=== PATIENT | male | born 1970 | race Caucasian/White ===

== ENCOUNTER 2020-05-19 14:51 | Outpatient (REF) | payer OTHER, SELFPAY ==
--- NOTE | 2020-05-19 15:09 | XR_ITS ---
EXAMINATION: XR ANKLE, RIGHT XR FOOT, LEFT XR KNEE, LEFT CLINICAL INFORMATION: Pain of the right ankle. Pain in toes of left foot. Pain of left knee COMPARISON: Radiographs of left toes and left foot from 10/25/2017 and 02/18/2019. Radiographs of left knee from 05/07/2014. TECHNIQUE: Right ankle, 3 views Left foot, 3 views Left knee, 4 views FINDINGS: Left knee: Bones have normal alignment and joint spaces are maintained. No acute fracture, subluxation or joint effusion. Small marginal osteophytes of the patella. There is an old subchondral cyst of the lateral patellar facet. No intra-articular osteochondral body. Right ankle: The talar dome is well-positioned within the intact ankle mortise. Ankle joint space and syndesmotic space are normal. No fracture or subluxation. Minimal osseous spurring at the tip of the fibula. There is a prominent Stieda process of the posterior talus. Moderate-sized enthesophyte is noted at the Achilles tendon insertion. Kager's fat pad is normal. Left foot: No fracture or malalignment. No erosion or periostitis. There is a prominent Stieda process of the posterior talus. Small enthesophyte is noted at the Achilles tendon insertion on the posterior calcaneus. At the great toe MTP joint, there is narrowing of joint space and osteophyte formation. Chronic osteoarthritis also observed at the great toe interphalangeal joint (as manifest by joint space narrowing and osteophyte formation). The joint degeneration is unchanged in appearance compared to 02/19/2019. XR/XR ankle RT min 3V IMPRESSION: * Mild osteoarthritis of the patellofemoral joint of the left knee is unchanged in appearance compared 05/07/2014. * [id number]-lr-[id number] osteoarthritis of the metatarsophalangeal and interphalangeal joints of the great toe. The arthritis has a stable appearance compared to 02/19/2019. No acute fracture or malalignment. * Bones have normal alignment at the right ankle. No specific source of pain is detected at the right ankle.
== END 2020-05-19 14:52 | disposition home or self-care (01) ==
LOC: HO.XRAY 14:51
PROVIDERS: PCP Internal Medicine; Visit Provider Internal Medicine
DX: M25.571 Pain in right ankle and joints of right foot (principal); M25.562 Pain in left knee; M79.675 Pain in left toe(s)
CPT/HCPCS: 73564; 73610; 73630

== ENCOUNTER 2021-03-10 10:12 | Emergency (ER) | payer SELFPAY ==
[2021-03-10 10:17] VITALS: BP 148/89; PULSE 102; RESP 18; TEMP 36.6; O2SAT 98; BMI 29.2
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
[2021-03-10] MEDS: Lidocaine HCl 2 % MPF 5 ML VIAL INFILTRATI (11:38)
== END 2021-03-10 11:48 | disposition home or self-care (01) ==
PROVIDERS: Emergency Provider Emergency Medicine; PCP Internal Medicine
DX: L02.811 Cutaneous abscess of head [any part, except face] (principal); Z79.899 Other long term (current) drug therapy
CPT/HCPCS: 10060; 99283; 99284

== ENCOUNTER 2022-03-16 11:48 | Outpatient (REF) | payer MEDICAID, SELFPAY ==
--- NOTE | ~2022-03-16 | XR_ITS ---
EXAMINATION: XR FINGER, LEFT CLINICAL INFORMATION: Cellulitis left index finger. COMPARISON: Radiographs left hand 03/10/2015 TECHNIQUE: AP view left hand and 2 views of the index finger are obtained for 3 views. FINDINGS: There is dorsal soft tissue swelling index finger just proximal to the nail bed. Overlying dressing is present. There is no gas tracking in the soft tissues. The underlying bone shows no periostitis or destructive process. There is no fracture or dislocation. Normal bony mineralization. Again, there is some undertubulation of the distal shaft second metacarpal similar to remote radiographs 2014. XR/XR finger LT min 2V IMPRESSION: -No bony destructive process or periostitis. -No gas tracking in soft tissue planes.
== END 2022-03-16 11:49 | disposition home or self-care (01) ==
LOC: HO.HMGCX 11:48
PROVIDERS: Visit Provider Emergency Medicine
DX: L03.012 Cellulitis of left finger (principal)
CPT/HCPCS: 73140

== ENCOUNTER 2022-10-08 11:10 | Outpatient (REF) | payer OTHER, SELFPAY ==
--- NOTE | ~2022-10-08 | XR_ITS ---
EXAMINATION: XR LUMBOSACRAL SPINE CLINICAL INFORMATION: Lower spine pain. COMPARISON: Radiographs dated 10/19/2009. TECHNIQUE: AP and lateral views of the lumbar spine and lateral view of the lumbosacral junction. FINDINGS: The vertebral bodies and posterior elements are normal. There is a transitional appearance of the lumbar spine, with 6 lumbar type vertebra not articulating with a rib. The disc spaces are preserved, and the vertebral alignment is normal. There is mild anterior spondylosis at L1-L2. The paraspinal soft tissues are normal. There are abdominal and pelvic surgical clips. XR/XR lumbar spine 2-3V IMPRESSION: 1. There is a transitional appearance of the lumbar spine. 2. The lumbar disc spaces are well-maintained. 3. There is mild anterior spondylosis at L1-L2.
== END 2022-10-08 11:11 | disposition home or self-care (01) ==
LOC: HO.XRAY 11:10
PROVIDERS: PCP Internal Medicine; Visit Provider General Practice
DX: M54.50 Low back pain, unspecified (principal)
CPT/HCPCS: 72100

== ENCOUNTER 2022-12-31 10:10 | Outpatient (REF) | payer OTHER, SELFPAY ==
[2022-12-31 14:12] LABS: MANUAL DIFF FLAG NO
[2022-12-31 14:27] LABS: Basophils Absolute Auto 0.1 X10*3/uL (0.0-0.2); Basophils Percent Auto 0.6 % (0-2); Eosinophils Absolute Auto 0.2 X10*3/uL (0.0-0.4); Hematocrit 43.9 % (42.0-52.0); Hemoglobin 14.7 g/dl (14.0-18.0); Imm Gran Abs Auto 0.05 X10*3/uL (0.00-0.03); Imm Gran Pct Auto 0.6 % (0.0-0.4); Lymphocytes Absolute Auto 2.3 X10*3/uL (1.2-4.9); Lymphocytes Percent Auto 28.1 % (20-40); Mean Corpuscular HGB Conc 33.5 g/dl (31.0-36.0); Mean Corpuscular Hemoglobin 27.6 pg (27.0-33.0); Mean Corpuscular Volume 82.5 fL (80.0-98.0); Mean Platelet Volume 12.2 fL (9.4-12.4); Monocytes Absolute Auto 0.6 X10*3/uL (0.1-1.2); Monocytes Percent Auto 7.7 % (2-11); Neutrophils Absolute Auto 4.9 x10*3/uL (2.0-8.3); Platelet Count 251 X10*3/uL (160-400); Red Blood Count 5.32 X10*6/uL (4.60-5.80); Red Cell Distribution Width 12.8 % (11.0-16.0); White Blood Count 8.1 X10*3/uL (4.8-10.8)
[2022-12-31 14:52] LABS: Creatinine Urine 198.54 mg/dL; Microalbum/Creatinine Ratio Ur 7.5 ug/mg cr
[2022-12-31 15:07] LABS: Alanine Aminotransferase 41 U/L (0-40); Albumin Level 4.3 g/dL (3.5-5.0); Alkaline Phosphatase 52 U/L (39-117); Anion Gap 14 (12-20); Aspartate Amino Transferase 27 U/L (5-37); Bilirubin Total 1.9 mg/dL (0.0-1.0); Blood Urea Nitrogen 22 mg/dL (9-16); Calcium 9.3 mg/dL (8.4-10.2); Carbon Dioxide 31 mmol/L (22-29); Chloride 101 mmol/L (96-108); Estimated Glomerular Filt Rate > 60; Glucose Random 202 mg/dL (60-115); Magnesium 1.6 mg/dL (1.6-2.6); Potassium 3.6 mmol/L (3.3-5.1); Sodium 142 mmol/L (135-145); Total Protein 7.5 g/dL (6.5-8.0)
[2022-12-31 15:12] LABS: TSH reflex Free T4 2.57 uIU/mL (0.32-4.0); Vitamin D 25-OH Total 36.6 ng/mL (>30)
== END 2022-12-31 10:11 | disposition home or self-care (01) ==
LOC: CF 10:10
PROVIDERS: Visit Provider Internal Medicine
DX: R53.83 Other fatigue (principal); E11.9 Type 2 diabetes mellitus without complications
CPT/HCPCS: 36415; 80053; 82043; 82306; 83735; 84443; 85025

== ENCOUNTER 2023-07-22 14:57 | Outpatient (REF) | payer MEDICAID, SELFPAY ==
--- NOTE | ~2023-07-22 | XR_ITS ---
EXAMINATION: XR CHEST CLINICAL INFORMATION: Recurrent cough and dyspnea on exertion. History of asthma. COMPARISON: 11/15/2015. TECHNIQUE: PA and lateral views of the chest. FINDINGS: No significant abnormality is noted involving the heart, lungs, mediastinum, bony thorax or soft tissues. Status post cholecystectomy. XR/XR chest 2V IMPRESSION: Normal chest PA and lateral.
== END 2023-07-22 14:58 | disposition home or self-care (01) ==
LOC: HO.HHCX 14:57
PROVIDERS: Visit Provider Internal Medicine Geriatric Medicine
DX: R05.9 Cough, unspecified (principal); Z87.09 Personal history of other diseases of the respiratory system
CPT/HCPCS: 71046

== ENCOUNTER 2023-09-09 11:25 | Outpatient (REF) | payer MEDICAID, SELFPAY ==
--- NOTE | ~2023-09-09 | XR_ITS ---
EXAMINATION: XR KNEE, LEFT CLINICAL INFORMATION: Reason for Exam acute on chronic knee pain COMPARISON: Knee radiographs 04/29/2014 TECHNIQUE: 4 views of the knee FINDINGS: No acute fracture or dislocation. Joint spaces are maintained. No joint effusion. Soft tissues are unremarkable. XR/XR knee LT 4V IMPRESSION: * No acute osseous abnormality.
== END 2023-09-09 11:26 | disposition home or self-care (01) ==
LOC: HO.XRAY 11:25
PROVIDERS: PCP Internal Medicine; Visit Provider Internal Medicine
DX: M25.562 Pain in left knee (principal); G89.29 Other chronic pain
CPT/HCPCS: 73564

== ENCOUNTER 2023-10-22 09:44 | Outpatient (AMB) | payer OTHER, SELFPAY ==
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
== END 2023-10-22 10:24 | disposition home or self-care (01) ==
PROVIDERS: PCP Internal Medicine; Referring Provider Internal Medicine; Visit Provider Orthopaedic Surgery
DX: M25.562 Pain in left knee (principal)
CPT/HCPCS: 99202

== ENCOUNTER → 2023-10-22 09:44 | Outpatient (BNVA) | payer OTHER, SELFPAY | PROVIDERS: PCP Internal Medicine; Visit Provider Orthopaedic Surgery | DX: M25.562 Pain in left knee (principal) | CPT/HCPCS: 99202 ==

== ENCOUNTER 2024-02-11 15:22 | Emergency (ER) | payer OTHER, SELFPAY ==
--- NOTE | ~2024-02-11 | CT_ITS ---
EXAMINATION: CT HEAD WITHOUT CONTRAST CLINICAL INFORMATION: Left-sided headache COMPARISON: CT head November 26, 2014 TECHNIQUE: Contiguous axial imaging was performed from the skull base to vertex without intravenous administration of contrast. Coronal and sagittal reformatted images are performed at the CT scanner. This CT examination was performed using dose optimization techniques as appropriate, variously including the following: *Automated exposure control *Adjustment of mA and/or kV according to patient size (this includes techniques or standardized protocols for targeted exams where dose is matched to indication/reason for exam; i.e. extremities or head) *Use of iterative reconstruction technique DLP: 602 mGy-cm. FINDINGS: There is no evidence of acute intracranial hemorrhage or territorial infarction. No abnormal mass-effect or midline shift is seen. Jarvis to white matter differentiation is well preserved. No extra-axial fluid collections are identified. The ventricles are normal in size. There is no abnormal attenuation within the brain parenchyma. There is no osseous abnormality. Left maxillary sinus is nearly entirely opacified. Air-fluid level present in the left maxillary sinus. The mastoid air cells and middle ear cavities are normally aerated. CT/CT head/brain wo IV con IMPRESSION: No acute intracranial pathology. Electronically signed by: Chao Chase MD 02/11/2024 04:57 PM EDT RP
[2024-02-11 15:27] VITALS: BP 153/96; PULSE 110; RESP 19; TEMP 36.6; O2SAT 98; BMI 28.2
--- NOTE | 2024-02-11 15:27 | ED.GENADULT ---
HPI - General Adult General Chief complaint: Headache Stated complaint: Headache Time Seen by Provider: 02/11/24 16:33 Source: patient History of Present Illness ED Provider: Kim Avitia PA-C HPI narrative: 53-year-old male with history of diabetes, hypertension and hyperlipidemia presents with cough and cold symptoms times 3 days. Patient states he has had a frontal headache, with yellow mucus draining from his nose. Associated postnasal drip and dry cough. Denies fevers. Patient denies neck pain, dizziness, nausea, vomiting. Related Data Home Medications ?Medication ?Instructions ?Recorded ?Confirmed albuterol sulfate 90 mcg/actuation inhalation 10/22/23 10/22/23 aerosol inhaler atenolol 25 mg tablet 25 mg PO QAM 10/22/23 10/22/23 baclofen 10 mg tablet 10 mg PO BID 10/22/23 10/22/23 beclomethasone dipropionate 40 inhalation 10/22/23 10/22/23 mcg/actuation HFA breath activated aerosol (Qvar RediHaler) blood sugar diagnostic (True #10 ea 10/22/23 10/22/23 Metrix Glucose Test Strip) chlorthalidone 25 mg tablet 25 mg PO DAILY 10/22/23 10/22/23 glipizide 10 mg tablet 10 mg PO BID 10/22/23 10/22/23 loperamide 2 mg capsule mg PO 10/22/23 10/22/23 meloxicam 15 mg tablet 15 mg PO DAILY 10/22/23 10/22/23 metformin 500 mg tablet 1,000 mg PO BID 10/22/23 10/22/23 simvastatin 40 mg tablet 40 mg PO BEDTIME 10/22/23 10/22/23 venlafaxine 37.5 mg 37.5 mg PO DAILY 10/22/23 10/22/23 capsule,extended release 24 hr Previous Rx's ?Medication ?Instructions ?Recorded cephalexin 500 mg capsule 500 mg PO Q6H 5 days #20 caps 03/10/21 Allergies Allergy/AdvReac Type Severity Reaction Status Date / Time allopurinol [ALLOPURINOL] Allergy Unknown ANAPHYLAXIS, Verified 02/11/24 15:29 Throat Swelling, throat swelling lisinopril [LISINOPRIL] Allergy Unknown COUGH Verified 02/11/24 15:29 losartan Allergy Unknown diarrhea Verified 02/11/24 15:29 sulfamethoxazole Allergy Unknown Verified 02/11/24 15:29 [From Bactrim] trimethoprim [From Bactrim] Allergy Unknown Verified 02/11/24 15:29 From VICODIN Allergy Unknown ANAPHYLAXIS Uncoded 02/11/24 15:29 HYDROCODONE Allergy Unknown Shortness Uncoded 02/11/24 15:29 of Breath Hydrocodone-Acetaminophen Allergy Unknown shortness Uncoded 02/11/24 15:29 of breath Review of Systems Review of Systems: Yes all other systems are reviewed and are negative Constitutional: Constitutional: Denies fever(s) ENT: Reports nasal discharge, Reports post nasal drip and Denies sore throat Cardiovascular: Cardiovascular: Denies chest pain and Denies dyspnea Respiratory: Respiratory: Denies chest congestion, Reports cough and Denies dyspnea Gastrointestinal: Gastrointestinal: Denies vomiting PMF Past Medical History Attestation statement: The following information was validated with the patient. 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 Physical Exam ED Vital Signs: Vital Signs - 24 hr 02/11/24 15:27 02/11/24 16:38 Temperature 98 F 98.5 F Pulse Rate 110 H 104 H Respiratory Rate 19 14 Blood Pressure 153/96 H 125/88 Pulse Oximetry 98 94 Oxygen Delivery Method Room Air Room Air BMI result Body Mass Index 28.2 Const Other: Alert, appears older than stated age, sounds congested when he speaks Orientation/consciousness: patient oriented x3 Neck Other: Soft, supple, full range of motion, no meningeal signs Resp Other: Nonlabored respirations Cardio Other: Normal peripheral perfusion Skin Other: Warm dry no rash Neuro General: patient oriented x3, no focal motor deficits and CN's II-XI intact bilaterally Extrem General: Yes full ROM Psych Other: Calm cooperative Course Course Course Narrative: RME, this is a rapid medical exam performed by Chung Webber please refer to primary provider for complete H&P- 53 year old male presents for evaluation of a left sided headache for the last 3 days. Also complains of drainage from the nose. Plan for CT brain, labs, viral swabs. Reports his mother of brain cancer last year Medical Decision Making Medical Decision Making MDM Narrative: 53-year-old male with history of diabetes, hypertension and hyperlipidemia presents with cough and cold symptoms times 3 days. Patient states he has had a frontal headache, with yellow mucus draining from his nose. Associated postnasal drip and dry cough. Denies fevers. Patient denies neck pain, dizziness, nausea, vomiting. Problem: Diabetes History: Per patient I have considered the following differential diagnoses: Sinus headache, sinusitis, viral syndrome, meningitis, intracranial hemorrhage Plan: The patient is assessment was started from [facility], screening labs and a CT of the head was obtained. Thus far his assessment is unremarkable. His sugars are elevated, however he is not in DKA, there is no gap. We will send with home care instructions for his viral syndrome and sinus related headache. He does have evidence of sinusitis on CT, however he has not had symptoms long enough to have developed a secondary bacterial infection, antibiotics are currently not indicated. I have independently reviewed the following tests: Labs: Slight leukocytosis, not anemic, no electrolyte abnormality, no gap, sugars over 300, viral panel negative, he was screened for COVID and influenza CT brain:OMPARISON: CT head November 26, 2014 TECHNIQUE: Contiguous axial imaging was performed from the skull base to vertex without intravenous administration of contrast. Coronal and sagittal reformatted images are performed at the CT scanner. This CT examination was performed using dose optimization techniques as appropriate, variously including the following: *Automated exposure control *Adjustment of mA and/or kV according to patient size (this includes techniques or standardized protocols for targeted exams where dose is matched to indication/reason for exam; i.e. extremities or head) *Use of iterative reconstruction technique DLP: 602 mGy-cm. FINDINGS: There is no evidence of acute intracranial hemorrhage or territorial infarction. No abnormal mass-effect or midline shift is seen. Jarvis to white matter differentiation is well preserved. No extra-axial fluid collections are identified. The ventricles are normal in size. There is no abnormal attenuation within the brain parenchyma. There is no osseous abnormality. Left maxillary sinus is nearly entirely opacified. Air-fluid level present in the left maxillary sinus. The mastoid air cells and middle ear cavities are normally aerated. CT/CT head/brain wo IV con IMPRESSION: No acute intracranial pathology. Electronically signed by: Chao Chase MD 02/11/2024 04:57 PM EDT Lab Data 02/11/24 15:38 02/11/24 15:38 Labs: Lab Results 02/11/24 02/11/24 Range/Units 15:38 15:39 WBC 11.8 H (4.8-10.8) X10*3/uL RBC 5.41 (4.60-5.80) X10*6/uL Hgb 15.3 (14.0-18.0) g/dl Hct 43.7 (42.0-52.0) % MCV 80.8 (80.0-98.0) fL MCH 28.3 (27.0-33.0) pg MCHC 35.0 (31.0-36.0) g/dl RDW 12.1 (11.0-16.0) % Plt Count 238 (160-400) X10*3/uL MPV 10.9 (9.4-12.4) fL Immature Gran % (Auto) 0.3 (0.0-0.4) % Neut % (Auto) 77.3 H (45-73) % Lymph % (Auto) 13.6 L (20-40) % [place] % (Auto) 8.1 (2-11) % Eos % (Auto) 0.4 (0-4) % Baso % (Auto) 0.3 (0-2) % Lymph # (Auto) 1.6 (1.2-4.9) X10*3/uL [place] # (Auto) 1.0 (0.1-1.2) X10*3/uL Eos # (Auto) 0.1 (0.0-0.4) X10*3/uL Baso # (Auto) 0.0 (0.0-0.2) X10*3/uL Abs Immat Gran (auto) 0.04 H (0.00-0.03) X10*3/uL Absolute Neuts (auto) 9.1 H (2.0-8.3) x10*3/uL Absolute Nucleated RBC 0.000 (0.0-0.012) X10*3/uL Nucleated RBC % (auto) 0.0 (0.0-0.2) /100WBC ESR 69 H (0-15) MM/HR Sodium 137 (135-145) mmol/L Potassium 3.8 (3.3-5.1) mmol/L Chloride 96 (96-108) mmol/L Carbon Dioxide 27 (22-29) mmol/L Anion Gap 18 (12-20) BUN 16 (9-16) mg/dL Creatinine 1.29 (0.5-1.4) mg/dL Estim Creat Clear Calc 66.9 Estimated GFR 58 Random Glucose 390 H* (60-115) mg/dL Calcium 9.9 D (8.4-10.2) mg/dL Total Bilirubin 2.6 H (0.0-1.0) mg/dL AST 14 (5-37) U/L ALT 19 (0-40) U/L Alkaline Phosphatase 81 (39-117) U/L Total Protein 8.3 H (6.5-8.0) g/dL Albumin 4.4 (3.5-5.0) g/dL COVID-19 (PATRICK) Negative (Negative) COVID-19 Clin Com See Note Influenza Type A (AKASH) Negative (Negative) Influenza Type B (AKASH) Negative (Negative) Influenza A & B Note See Note Discharge Plan Discharge Clinical Impression: Sinusitis, acute, Sinus headache Patient Disposition: Home, Self-Care Instructions: General Headache (ED), Sinusitis (ED) Additional Instructions: You were screened for COVID and influenza, you tested negative for both viruses. There are several other upper respiratory viruses circulating in the community. You have viral sinusitis, this is also the cause of your headache. See home care instructions. You can use mqfl-zti-rgheemk Mucinex, this will help thin your nasal secretions and alleviate the congestion, use until your symptoms improve. You should also be using dqem-jmy-poiwchi Zyrtec, daily, this will further alleviate your congestion, use until your symptoms improve. For your headaches, you can use dxmh-swo-pyxxrih Tylenol 1000 mg taken every 8 hours, alternated with use of grwf-oqi-wrkckpp ibuprofen 600 mg taken every 6 hours with food. Follow up with your primary care provider if your symptoms are not improving within the next 2-3 days. Prescriptions: No Action cephalexin 500 mg capsule 500 mg PO Q6H 5 Days Qty: 20 0RF meloxicam 15 mg tablet 15 mg PO DAILY simvastatin 40 mg tablet 40 mg PO BEDTIME chlorthalidone 25 mg tablet 25 mg PO DAILY atenolol 25 mg tablet 25 mg PO QAM albuterol sulfate 90 mcg/actuation HFA aerosol inhaler inhalation glipizide 10 mg tablet 10 mg PO BID loperamide 2 mg capsule PO (DME) True Metrix Glucose Test Strip Strip See Rx Instructions .ROUTE TID Qty: 10 Rx Instructions: As directed venlafaxine 37.5 mg capsule,extended release 24hr 37.5 mg PO DAILY metformin 500 mg tablet 1,000 mg PO BID Qvar RediHaler 40 mcg/actuation HFA aerosol breath activated inhalation baclofen 10 mg tablet 10 mg PO BID Print Language: Macedonian
[2024-02-11 15:45] LABS: MANUAL DIFF FLAG NO
[2024-02-11 15:51] LABS: Basophils Percent Auto 0.3 % (0-2); Eosinophils Absolute Auto 0.1 X10*3/uL (0.0-0.4); Eosinophils Percent Auto 0.4 % (0-4); Hematocrit 43.7 % (42.0-52.0); Hemoglobin 15.3 g/dl (14.0-18.0); Imm Gran Abs Auto 0.04 X10*3/uL (0.00-0.03); Imm Gran Pct Auto 0.3 % (0.0-0.4); Lymphocytes Absolute Auto 1.6 X10*3/uL (1.2-4.9); Lymphocytes Percent Auto 13.6 % (20-40); Mean Corpuscular Hemoglobin 28.3 pg (27.0-33.0); Mean Corpuscular Volume 80.8 fL (80.0-98.0); Mean Platelet Volume 10.9 fL (9.4-12.4); Monocytes Percent Auto 8.1 % (2-11); Neutrophils Absolute Auto 9.1 x10*3/uL (2.0-8.3); Neutrophils Percent Auto 77.3 % (45-73); Platelet Count 238 X10*3/uL (160-400); Red Blood Count 5.41 X10*6/uL (4.60-5.80); Red Cell Distribution Width 12.1 % (11.0-16.0); White Blood Count 11.8 X10*3/uL (4.8-10.8)
[2024-02-11 16:02] LABS: IDNOW Serial# 08D9AD1C; Influenza A Negative (Negative); Influenza B2 Negative (Negative)
[2024-02-11 16:03] LABS: COVID-19 Test Negative (Negative); IDNOW Serial# 152EDE1D
[2024-02-11 16:12] LABS: Alanine Aminotransferase 19 U/L (0-40); Albumin Level 4.4 g/dL (3.5-5.0); Alkaline Phosphatase 81 U/L (39-117); Anion Gap 18 (12-20); Aspartate Amino Transferase 14 U/L (5-37); Bilirubin Total 2.6 mg/dL (0.0-1.0); Blood Urea Nitrogen 16 mg/dL (9-16); Calcium 9.9 mg/dL (8.4-10.2); Carbon Dioxide 27 mmol/L (22-29); Chloride 96 mmol/L (96-108); Creatinine Clr Calc Pharmacy 66.9; Estimated Glomerular Filt Rate 58; Glucose Random 390 mg/dL (60-115); Potassium 3.8 mmol/L (3.3-5.1); Sodium 137 mmol/L (135-145); Total Protein 8.3 g/dL (6.5-8.0)
[2024-02-11 16:38] VITALS: BP 125/88; PULSE 104; RESP 14; TEMP 36.9; O2SAT 94
[2024-02-11 16:41] LABS: Erythrocyte Sedimentation Rate 69 MM/HR (0-15)
[2024-02-11 18:03] VITALS: BP 125/88; PULSE 104; RESP 14; TEMP 36.9; O2SAT 94
== END 2024-02-11 18:04 | disposition home or self-care (01) ==
PROVIDERS: Physician Assistant; Emergency Provider Emergency Medicine; PCP Internal Medicine
DX: J01.90 Acute sinusitis, unspecified (principal); R51.9 Headache, unspecified; Z11.52 Encounter for screening for COVID-19; Z79.899 Other long term (current) drug therapy
CPT/HCPCS: 36415; 70450; 80053; 85025; 85652; 87502; 87635; 99283; 99284

== ENCOUNTER 2024-05-27 10:30 | Outpatient (REF) | payer OTHER, SELFPAY ==
[2024-05-27 14:10] LABS: MANUAL DIFF FLAG NO
[2024-05-27 14:20] LABS: Basophils Percent Auto 0.5 % (0-2); Eosinophils Absolute Auto 0.1 X10*3/uL (0.0-0.4); Eosinophils Percent Auto 1.6 % (0-4); Hemoglobin 15.1 g/dl (14.0-18.0); Imm Gran Abs Auto 0.02 X10*3/uL (0.00-0.03); Imm Gran Pct Auto 0.3 % (0.0-0.4); Lymphocytes Absolute Auto 1.7 X10*3/uL (1.2-4.9); Lymphocytes Percent Auto 23.2 % (20-40); Mean Corpuscular HGB Conc 33.6 g/dl (31.0-36.0); Mean Corpuscular Hemoglobin 27.5 pg (27.0-33.0); Mean Corpuscular Volume 81.8 fL (80.0-98.0); Mean Platelet Volume 11.7 fL (9.4-12.4); Monocytes Absolute Auto 0.5 X10*3/uL (0.1-1.2); Monocytes Percent Auto 7.3 % (2-11); Neutrophils Percent Auto 67.1 % (45-73); Platelet Count 238 X10*3/uL (160-400); Red Cell Distribution Width 12.5 % (11.0-16.0); White Blood Count 7.4 X10*3/uL (4.8-10.8)
[2024-05-27 14:39] LABS: Alanine Aminotransferase 46 U/L (0-40); Albumin Level 4.3 g/dL (3.5-5.0); Alkaline Phosphatase 62 U/L (39-117); Anion Gap 9 (12-20); Aspartate Amino Transferase 34 U/L (5-37); Bilirubin Total 1.4 mg/dL (0.0-1.0); Blood Urea Nitrogen 18 mg/dL (9-16); Calcium 8.8 mg/dL (8.4-10.2); Carbon Dioxide 30 mmol/L (22-29); Chloride 101 mmol/L (96-108); Cholesterol 110 mg/dL (<200); Estimated Glomerular Filt Rate > 60; Glucose Random 387 mg/dL (60-115); HDL Cholesterol 32 mg/dL (>40); LDL Cholesterol Calculated 52 mg/dL (<100); Sodium 136 mmol/L (135-145); Total Protein 7.6 g/dL (6.5-8.0); Triglycerides 133 mg/dL (<150)
[2024-05-27 14:49] LABS: TSH reflex Free T4 2.46 uIU/mL (0.32-4.0)
[2024-05-28 04:34] LABS: ~HepC Num1 0.19 S/CO (0.00-0.79); ~Hepatitis B Surface Antibody REACTIVE (Nonreactive); ~Hepatitis C Antibody Nonreactive (Nonreactive)
== END 2024-05-27 10:31 | disposition home or self-care (01) ==
LOC: HO.CHCLDS 10:30
PROVIDERS: Visit Provider Internal Medicine
DX: E11.65 Type 2 diabetes mellitus with hyperglycemia (principal); I10 Essential (primary) hypertension; R07.89 Other chest pain
CPT/HCPCS: 36415; 80053; 80061; 84443; 85025; 86706; 86803

== ENCOUNTER 2024-05-28 09:57 | Outpatient (AMB) | payer OTHER, SELFPAY ==
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
[2024-05-28 10:04] VITALS: BMI 28.2
== END 2024-05-28 10:24 | disposition home or self-care (01) ==
PROVIDERS: PCP Internal Medicine; Visit Provider Orthopaedic Surgery
DX: S83.282A Other tear of lateral meniscus, current injury, left knee, initial encounter (principal)
CPT/HCPCS: 99213; G2211

== ENCOUNTER → 2024-05-28 09:57 | Outpatient (BNVA) | payer OTHER, SELFPAY | PROVIDERS: PCP Internal Medicine; Visit Provider Orthopaedic Surgery | DX: S83.282A Other tear of lateral meniscus, current injury, left knee, initial encounter (principal); V29.39XA Other motorcycle (driver) (passenger) injured in unspecified nontraffic accident, initial encounter; Y93.I9 Activity, other involving external motion; Y92.410 Unspecified street and highway as the place of occurrence of the external cause; Y99.9 Unspecified external cause status | CPT/HCPCS: 99212 ==

== ENCOUNTER 2024-06-17 08:55 | Outpatient (REF) | payer OTHER, SELFPAY ==
--- NOTE | ~2024-06-17 | US_ITS ---
CLINICAL HISTORY: Transaminitis US abdomen complete Comparison: None Findings: The visualized pancreas is normal. The aorta and inferior vena cava are normal caliber. The appearance of the liver suggests fatty infiltration without focal lesion. There is no intrahepatic bile duct dilatation. The common duct is 3.6 mm in diameter. The gallbladder is normal. There is no sonographic Bernardo sign. The main portal vein is antegrade. The right kidney is 11.1 cm in length. The left kidney is 11.0 cm in length. The spleen is normal. No ascites. IMPRESSION: 1. Hepatic steatosis. This document has been electronically signed by: Isiah Schwartz MD on 06/19/2024 07:48:14
== END 2024-06-17 08:56 | disposition home or self-care (01) ==
LOC: HO.US 08:55
PROVIDERS: PCP Internal Medicine; Visit Provider Internal Medicine
DX: R74.01 Elevation of levels of liver transaminase levels (principal)
CPT/HCPCS: 76700

== ENCOUNTER → 2024-06-17 08:56 | Outpatient (BNV) | payer OTHER, SELFPAY | PROVIDERS: PCP Internal Medicine; Visit Provider Specialist | DX: R74.01 Elevation of levels of liver transaminase levels (principal) | CPT/HCPCS: 76700 ==

== ENCOUNTER 2024-07-03 09:37 | Emergency (ER) | payer OTHER, SELFPAY ==
--- NOTE | ~2024-07-03 | XR_ITS ---
EXAMINATION: XR SHOULDER, RIGHT CLINICAL INFORMATION: Fall , pain COMPARISON: None available. TECHNIQUE: Three views of the right shoulder. FINDINGS: No fracture, dislocation, or suspicious bone lesion. Normal alignment. Normal glenohumeral joint space. Mild arthritic spurring of the AC joint which demonstrates minimal subluxation. Correlate with point tenderness for low-grade AC injury. Neutral lateral acromion with a small associated subacromial spur. No subacromial narrowing. Remainder of the bony and soft tissue structures appear normal. XR/XR shoulder RT min 2V IMPRESSION: 1. Minimal subluxation of the AC joint, possibly within normal variation. Correlate with point tenderness for low-grade AC injury. 2. Otherwise, no acute findings identified. Electronically signed by: Wesley Shaffer MD 07/03/2024 11:24 AM [facility]
--- NOTE | ~2024-07-03 | XR_ITS ---
EXAMINATION: XR LUMBOSACRAL SPINE CLINICAL INFORMATION: Fall, back pain, slipped on ice. COMPARISON: 10/08/2022. TECHNIQUE: Three views of the lumbosacral spine. FINDINGS: No significant scoliosis. Normal lordosis. No fracture, compression deformity, traumatic subluxation, or suspicious focal bone lesion. Very mild disc degeneration most notable at T12-L1 and L1-L2. Normal facet alignment. No pars defects. Imaged sacrum and SI joints appear normal. Surgical clips overlie the right upper quadrant and overlying the right sacral wing. Soft tissues otherwise normal. XR/XR lumbar spine 2-3V IMPRESSION: 1. No acute findings lumbar spine. Electronically signed by: Wesley Shaffer MD 07/03/2024 11:26 AM [facility]
--- NOTE | ~2024-07-03 | XR_ITS ---
EXAMINATION: XR ELBOW, RIGHT CLINICAL INFORMATION: Fall COMPARISON: None available. TECHNIQUE: AP, lateral, and oblique views of the right elbow. FINDINGS: The bones and soft tissues are normal. No fracture or joint effusion. Alignment is anatomic. Joint spaces are maintained. XR/XR elbow RT 2V IMPRESSION: Normal right elbow. Electronically signed by: Wesley Shaffer MD 07/03/2024 11:19 AM [facility]
--- NOTE | ~2024-07-03 | XR_ITS ---
EXAMINATION: XR WRIST, RIGHT CLINICAL INFORMATION: Fall COMPARISON: None available. TECHNIQUE: PA, lateral, oblique, and scaphoid views of the right wrist. FINDINGS: The bones and soft tissues are normal. No fracture. Alignment is anatomic with normal joint spaces. Negative ulnar variance noted. No erosions or abnormal soft tissue calcifications. XR/XR wrist RT 2V IMPRESSION: No acute bony or soft tissue abnormalities. Electronically signed by: Wesley Shaffer MD 07/03/2024 11:21 AM [facility]
[2024-07-03 10:28] VITALS: BP 156/80; PULSE 85; RESP 16; TEMP 36.4; O2SAT 100; BMI 27.4
--- NOTE | 2024-07-03 12:34 | ED_ITS ---
HPI - Extremity Problem General Chief complaint: Extremity Injury, Upper Stated complaint: fall @ work, shoulder pain, back pain Time Seen by Provider: 07/03/24 12:34 Source: patient Mode of arrival: ambulatory Limitations: no limitations History of Present Illness ED Provider: Allie Bassett PA-C HPI Narrative: Patient is a 54 year old assigned male at with a history of DM presenting to the emergency department today with right shoulder and low back pain after a slip and fall. Patient states that while at work last night he slipped and fell, landing on his right upper extremity and hurt his right upper extremity and low back. Patient denies any head strike with the incident or any loss of consciousness, dizziness, lightheadedness, abdominal pain, nausea, vomiting, fever, chills, blurry vision, double vision, loss of vision, chest pain, difficulty breathing, shortness of breath, back pain, night sweats, pain with urination, increased urinary frequency, increased urinary urgency, blood in his urine or stool, syncope or a near syncopal episode, bowel incontinence, bladder incontinence, or any other complaints at this time. MD Complaint: extremity pain and other (back pain) Relieving factors: nothing Exacerbating factors: range of motion Associated symptoms: denies other symptoms Related Data Home Medications ?Medication ?Instructions ?Recorded ?Confirmed albuterol sulfate 90 mcg/actuation inhalation 10/22/23 05/28/24 aerosol inhaler atenolol 25 mg tablet 25 mg PO QAM 10/22/23 05/28/24 baclofen 10 mg tablet 10 mg PO BID 10/22/23 05/28/24 beclomethasone dipropionate 40 inhalation 10/22/23 05/28/24 mcg/actuation HFA breath activated aerosol (Qvar RediHaler) blood sugar diagnostic (True #10 ea 10/22/23 05/28/24 Metrix Glucose Test Strip) chlorthalidone 25 mg tablet 25 mg PO DAILY 10/22/23 05/28/24 glipizide 10 mg tablet 10 mg PO BID 10/22/23 05/28/24 loperamide 2 mg capsule mg PO 10/22/23 05/28/24 meloxicam 15 mg tablet 15 mg PO DAILY 10/22/23 05/28/24 metformin 500 mg tablet 1,000 mg PO BID 10/22/23 05/28/24 simvastatin 40 mg tablet 40 mg PO BEDTIME 10/22/23 05/28/24 venlafaxine 37.5 mg 37.5 mg PO DAILY 10/22/23 05/28/24 capsule,extended release 24 hr Previous Rx's ?Medication ?Instructions ?Recorded cephalexin 500 mg capsule 500 mg PO Q6H 5 days #20 caps 03/10/21 Allergies Allergy/AdvReac Type Severity Reaction Status Date / Time allopurinol [ALLOPURINOL] Allergy Unknown ANAPHYLAXIS, Verified 07/03/24 10:34 Throat Swelling, throat swelling lisinopril [LISINOPRIL] Allergy Unknown COUGH Verified 07/03/24 10:34 losartan Allergy Unknown diarrhea Verified 07/03/24 10:34 sulfamethoxazole Allergy Unknown Verified 07/03/24 10:34 [From Bactrim] trimethoprim [From Bactrim] Allergy Unknown Verified 07/03/24 10:34 From VICODIN Allergy Unknown ANAPHYLAXIS Uncoded 07/03/24 10:34 HYDROCODONE Allergy Unknown Shortness Uncoded 07/03/24 10:34 of Breath Hydrocodone-Acetaminophen Allergy Unknown shortness Uncoded 07/03/24 10:34 of breath Review of Systems Constitutional: Constitutional: Reports no additional constitutional complaints, Denies chills, Denies fever(s) and Denies night sweats Eyes: Eyes: Reports no additional eye complaints, Denies blurry vision, Denies change in vision, Denies diplopia, Denies eye discharge, Denies loss of vision and Denies eye pain ENT: Denies dizziness Cardiovascular: Cardiovascular: Reports no additional cardiovascular complaints, Denies chest pain, Denies lightheadedness, Denies Loss of Consciousness and Denies dyspnea Respiratory: Respiratory: Reports no additional respiratory complaints and Denies dyspnea Gastrointestinal: Gastrointestinal: Reports no additional gastrointestinal complaints, Denies abdominal pain, Denies melena, Denies hematochezia, Denies change in bowel habits and Denies change in stool character Genitourinary: Genitourinary: Reports no additional male genitourinary complaints, Denies hematuria, Denies oliguria, Denies difficulty urinating, Denies dysuria, Denies urinary frequency, Denies urinary hesitancy, Denies urinary incontinence and Denies urinary urgency Musculoskeletal: Musculoskeletal: Reports no additional musculoskeletal complaints, Reports back pain, Denies numbness and Denies tingling Comments: right upper extremity pain Neurologic: Denies dizziness, Denies loss of vision, Denies numbness and Francis es tingling Psychiatric: Psychiatric: Reports no additional psychiatric complaints Endocrine: Endocrine: Reports no additional endocrine complaints Hematologic/Lymphatic: Hematologic/Lymphatic: Reports no additional hematologic/lymphatic complaints Allergic/Immunologic: Allergic/Immunologic: Reports no additional allergic/immunologic complaints PMFSH Past Medical History Attestation statement: The following information was validated with the patient. 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 Physical Exam Vital Signs: Vital Signs: Last Vital Signs Temp 98.2 F 07/03/24 13:46 Pulse 89 07/03/24 13:46 Resp 18 07/03/24 13:46 BP 152/92 H 07/03/24 13:46 Pulse Ox 98 07/03/24 13:46 O2 Del Method Room Air 07/03/24 13:46 BMI result Body Mass Index 27.4 Const: General: cooperative, no acute distress, alert and awake Nutritional Appearance: well nourished Orientation/consciousness: patient oriented x3 Limitations: no limitations HEENT: Head: Yes normal to inspection and Yes atraumatic Ears: hearing grossly normal bilaterally and external ears normal General nose exam: Normal external nose present, no nasal discharge noted and no epistaxis Face and sinus: Yes normal facial exam, No abrasion and No laceration Mouth: Normal oral and palatal mucosa present, no drooling and no muffled voice Eyes: General: appearance normal, both eyes and all related structures Periorbital: periorbital findings normal Eyelids: Yes eyelids normal Conjunctivae: conjunctivae normal Pupils: Equal, round and reactive pupils present EOM: EOMs intact bilaterally Neck: Neck: Yes normal visual inspection, Yes full ROM and Yes no lymphadenopathy Chest: Chest palpation & inspection: normal inspection of the chest Resp: Effort & Inspection: normal respiratory effort and able to speak in complete sentences GI: Inspection: Yes normal to inspection Neuro: General: patient oriented x3 and moves all extremities Cranial nerves: Yes Equal, round and reactive pupils present Cognition (Neuro): normal cognition Extrem: Other: pain with palpation of the right shoulder pain with entire right upper extremity ROM General: Yes normal to inspection, Yes full ROM and Yes capillary refill normal Psych: Appearance: grossly normal Mental Status: mental status grossly normal Affect: normal affect Attitude: cooperative Thought process: Normal thought process present Thought content: Normal thought content present Insight: Good insight present (Psych) Medications Administered Discontinued Medications Generic Name Dose Route Start Last Admin Trade Name Freq PRN Reason Stop Dose Admin Ketorolac Tromethamine 15 mg 07/03/24 12:58 07/03/24 13:38 Ketorolac Tromethamine 15 Mg/Ml Vial IM 07/03/24 12:59 15 mg ONCE ONE Administration Medical Decision Making Medical Decision Making [facility] Narrative: Patient is a 54 year old assigned male at with a history of DM presenting to the emergency department today with right shoulder and low back pain after a slip and fall. Patient's physical exam was as noted in the physical exam portion of this note. Patient's right wrist, right elbow, and lumbar x-rays showed no acute process. Patient's right shoulder x-ray showed minimal subluxation of the AC joint which may be a low-grade AC injury. Patient's clinical presentation is most consistent with AC separation. I explained my physical exam findings as well as all test results to the patient. I answered all questions asked by the patient. Patient's right shoulder x-ray was placed in a sling, without incident. Patient's PMS was intact prior to and after sling placement. I stressed the importance of the patient taking his medication as directed (either prescribed or as the over the counter packaging recommends). I stressed the importance of the patient following up with his primary care provider, work connection, and an orthopedic provider. I stressed the importance of the patient returning to the emergency department immediately if his symptoms were to worsen or if he were to develop any dizziness, shortness of breath, difficulty breathing, chest pain, blurry vision, loss of vision, nausea, vomiting, abdominal pain, fever, chills, back pain, or any other complaints. Patient verbalized agreement and understanding with this treatment plan and discharge. Differential Diagnosis Differential Diagnoses: The differential diagnosis associated with the presentation includes Right AC separation Right shoulder sprain Lumbar spine strain Admission/Observation Consideration of admission/observation: Escalation of care including admission/observation considered Patient would have been admitted to the hospital had his work up had any findin gs where hospital admission was appropriate and his clinical presentation warranted hospital admission. Independent Interpretation I performed an independent interpretation of an: Plain X-Ray Interpretation: My interpretation is in agreement with the radiologist's impression of these imaging studies. EXAMINATION: XR LUMBOSACRAL SPINE CLINICAL INFORMATION: Fall, back pain, slipped on ice. COMPARISON: 10/08/2022. TECHNIQUE: Three views of the lumbosacral spine. FINDINGS: No significant scoliosis. Normal lordosis. No fracture, compression deformity, traumatic subluxation, or suspicious focal bone lesion. Very mild disc degeneration most notable at T12-L1 and L1-L2. Normal facet alignment. No pars defects. Imaged sacrum and SI joints appear normal. Surgical clips overlie the right upper quadrant and overlying the right sacral wing. Soft tissues otherwise normal. XR/XR lumbar spine 2-3V IMPRESSION: 1. No acute findings lumbar spine. Electronically signed by: Wesley Shaffer MD 07/03/2024 11:26 AM EST Dictated By: Wesley Shaffer MD Signed By: Electronically signed by Wesley Shaffer MD 07/03/24 1126 EXAMINATION: XR SHOULDER, RIGHT CLINICAL INFORMATION: Fall , pain COMPARISON: None available. TECHNIQUE: Three views of the right shoulder. FINDINGS: No fracture, dislocation, or suspicious bone lesion. Normal alignment. Normal glenohumeral joint space. Mild arthritic spurring of the AC joint which demonstrates minimal subluxation. Correlate with point tenderness for low-grade AC injury. Neutral lateral acromion with a small associated subacromial spur. No subacromial narrowing. Remainder of the bony and soft tissue structures appear normal. XR/XR shoulder RT min 2V IMPRESSION: 1. Minimal subluxation of the AC joint, possibly within normal variation. Correlate with point tenderness for low-grade AC injury. 2. Otherwise, no acute findings identified. Electronically signed by: Wesley Shaffer MD 07/03/2024 11:24 AM SMS Assist Dictated By: Wesley Shaffer MD Signed By: Electronically signed by Wesley Shaffer MD 07/03/24 1124 EXAMINATION: XR ELBOW, RIGHT CLINICAL INFORMATION: Fall COMPARISON: None available. TECHNIQUE: AP, lateral, and oblique views of the right elbow. FINDINGS: The bones and soft tissues are normal. No fracture or joint effusion. Alignment is anatomic. Joint spaces are maintained. XR/XR elbow RT 2V IMPRESSION: Normal right elbow. Electronically signed by: Wesley Shaffer MD 07/03/2024 11:19 AM SMS Assist Dictated By: Wesley Shaffer MD Signed By: Electronically signed by Wesley Shaffer MD 07/03/24 1119 EXAMINATION: XR WRIST, RIGHT CLINICAL INFORMATION: Fall COMPARISON: None available. TECHNIQUE: PA, lateral, oblique, and scaphoid views of the right wrist. FINDINGS: The bones and soft tissues are normal. No fracture. Alignment is anatomic with normal joint spaces. Negative ulnar variance noted. No erosions or abnormal soft tissue calcifications. XR/XR wrist RT 2V IMPRESSION: No acute bony or soft tissue abnormalities. Electronically signed by: Wesley Shaffer MD 07/03/2024 11:21 AM EST Dictated By: Wesley Shaffer MD Signed By: Electronically signed by Wesley Shaffer MD 07/03/24 1121 Radiology Impression Discussion of test interpretation with radiology: I have reviewed the radiologist's reading. Procedures Orthopedic Splinting/Casting Injury #1: Side: right Upper Extremity Injury Location: shoulder Upper Extremity Immobilizer: sling/shoulder immobilizer Discharge Plan Discharge Clinical Impression: AC separation Patient Disposition: Home, Self-Care Instructions: Acromioclavicular Separation (ED), Shoulder Sprain (ED) Additional Instructions: Follow up with your primary care provider, work connection, and an orthopedic provider. Return to the emergency department immediately if your symptoms worsen or if you develop any dizziness, shortness of breath, difficulty breathing, chest pain, blurry vision, loss of vision, nausea, vomiting, abdominal pain, fever, chills, back pain, or any other complaints. Prescriptions: No Action cephalexin 500 mg capsule 500 mg PO Q6H 5 Days Qty: 20 0RF meloxicam 15 mg tablet 15 mg PO DAILY simvastatin 40 mg tablet 40 mg PO BEDTIME chlorthalidone 25 mg tablet 25 mg PO DAILY atenolol 25 mg tablet 25 mg PO QAM albuterol sulfate 90 mcg/actuation HFA aerosol inhaler inhalation glipizide 10 mg tablet 10 mg PO BID loperamide 2 mg capsule PO (DME) True Metrix Glucose Test Strip Strip See Rx Instructions .ROUTE TID Qty: 10 Rx Instructions: As directed venlafaxine 37.5 mg capsule,extended release 24hr 37.5 mg PO DAILY metformin 500 mg tablet 1,000 mg PO BID Qvar RediHaler 40 mcg/actuation HFA aerosol breath activated inhalation baclofen 10 mg tablet 10 mg PO BID Referrals: [facility] [Provider Group] (Call to establish and follow up with an orthopedic provider.) [facility] [Provider Group] (Given this was a work place injury, call to establish and follow up with work connection.) Nick Levy MD [Primary Care Provider] - Stand Alone Forms: Work/School Release Interventions: ED Discharge Assessment Last Done: 07/03/24 13:46 Discharge Date/Time: 07/03/24 13:47 Print Language: Greenlandic
[2024-07-03] MEDS: Ketorolac Tromethamine 15 MG/ML VIAL IM (13:38)
[2024-07-03 13:45] VITALS: BP 152/92; PULSE 89; RESP 18; TEMP 36.8; O2SAT 98
[2024-07-03 13:46] VITALS: BP 152/92; PULSE 89; RESP 18; TEMP 36.8; O2SAT 98
--- OUTSIDE RECORDS SUMMARY | 2024-07-03 14:44 | XMS_ITS | Encounter Summary ---
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 st Contact Info) Description 04/22/2024 Refill [facility] [address] [place] [address] Nick Levy MD [address], [place] [phone] Social History Tobacco Use Types Packs/Day Years Used Date Smoking Tobacco: Never Passive Smoke Exposure: Never Smokeless Tobacco: Never Alcohol Use Standard Drinks/Week Comments Not Currently 0 (1 standard drink = 0.6 oz pur e alcohol) oca Depression Answer Date Recorded Patient Health Questionnaire-9 Score 11 05/14/2023 Patient Health Questionnaire-9 Score 11 05/14/2023 Last PHQ-9: Questionnaire Data Not on file 1 07/15/2022 Housing Stability Answer Date Recorded What is your housing situation today? I have stephen valero 04/01/[address] you li ve. Do you have problems with any of the following? None of the above 04/01/2023 Food Insecurity Answer Date Recorded Within the past 12 months, y ou worried that your food would run out before you got money to buy more: Never True 04/01/2023 Within the past 12 months,th e food you bought just didn't last and you didn't have enough money to get more: Never True Transportation Answer Date Recorded In the past 12 months, has l ack of transportation kept you from medical appts, meetings, work or from getting things needed for daily living? No 04/01/2023 Utilities Answer Date Recorded In the past 12 months, has t he electric, gas, oil or water company threatened to shut off services in your home? No 04/01/2023 Depression Answer Date Recorded Patient Health Questionnaire-2 Score 4 05/14/2023 Sex and Gender Information Value Date Recorded Sex Assigned at Male 04/09/2022 10:15 AM EDT Legal Sex Male 10:15 AM EDT Gender Identity Male 04/09/2022 10:15 AM EDT Sexual Orientation Straight 04/09/2022 10 :15 AM EDT documented as of this encounter Plan of Treatment Upcoming Encounters Date Type Department Care Team (Late st Contact Info) Description 07/06/2024 9:30 AM EST Medication Management [facility] [address] [place] [address] Marbella Thapa, PharmD [address] [place] [address] 07/15/2024 9:00 AM EST Office Visit [facility] [address] [place] [address] Nick Levy MD [address] [place] [address] documented as of this encounter Visit Diagnoses Not on filedocumented in this encounter Additional Health Concerns Assessment Noted Time PHQ-9 Depression Total Score: 11 023 11:31 AM EST documented as of this encounter Care Teams [employer]er [employer] Unloader Relationship Specialty Start Date End Date Nick Levy MD [address] [place] [address] PCP - General Internal Medicine 08/06/19 documented as of this encounter
--- OUTSIDE RECORDS SUMMARY | 2024-07-03 14:44 | XMS_ITS | Encounter Summary ---
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 Pt with known DM and hyperglycemia within pt average. Will send to PCP as fyi. * Telephone Encounter - Suly Sultana LPN - 05/27/2024 2:38 PM EST Incoming call to the Critical Result line 05/27/24 at 2:39 PM [place] of [place] [place] Callback number: [phone] Reason for Call: Glucose 387 Message to be forwarded to Nick Levy MD and team nurses for follow up. documented in this encounter Plan of Treatment Upcoming Encounters Date Type Department Care Team (Late st Contact Info) Description 07/06/2024 9:30 AM EST Medication Management [facility] [address] [place] [address] Marbella Thapa, PharmD [address] [place] [address] 07/15/2024 9:00 AM EST Office Visit [facility] [address] [place] [address] Nick Levy MD [address] [place] [address] documented as of this encounter Visit Diagnoses Not on filedocumented in this encounter Additional Health Concerns Assessment Noted Time PHQ-9 Depression Total Score: 11 023 11:31 AM EST documented as of this encounter Care Teams Thermometer Production Worker Relationship Specialty Start Date End Date Nick Levy MD [address] [place] [id number] PCP - General Internal Medicine 08/06/19 documented as of this encounter
--- OUTSIDE RECORDS SUMMARY | 2024-07-03 14:44 | XMS_ITS | Clinical Summary ---
Author Organization [employer] Address [address] [facility] [address] [place] [address] Care Team Providers Care Implementation Analyst Name Role Phone Nick Levy MD Primary Care Provider [phone] Allergies Active Allergy Reactions Criticality Noted Date Comments Allopurinol 08/06/2019 Other reaction(s): Trouble Breathing Sulfamethoxazole-Trimethopr im Rash Low 04/21/2024 Hydrocodone 08/06/2019 Other reaction(s): Trouble Breathing Lisinopril 08/06/2019 Other reaction(s): Trouble Breathing Medications * This document contains information received from the source organization and may not represent a complete record from that organization. Acetaminophen Extra Strength 500 MG tablet Take 500 mg by mouth every 6 (six) hours if needed. 12/14/19 22 Active Blood Glucose Monitoring Suppl (FreeStyle [place] Lite) w/Device kit TEST BLOOD SUGAR EVERY DAY 03/20/20 22 Active cetirizine (ZyrTEC) 10 MG tablet Take 1 tablet by mouth at bed time. 01/21/20 21 Active chlorhexidine (Peridex) 0.12 % solution RINSE WITH 15ml BY MOUTH FOR 30 SECONDS THEN SPIT OUT TWICE DAILY AFTER MEALS 03/28/20 22 Active TRUEplus Lancets 33G misc TEST BLOOD SUGAR EVERY DAY 03/20/20 22 Active FREESTYLE LITE test strip TEST BLOOD SUGAR EVERY DAY 50 strip 5 05/01/20 23 Active Blood Glucose Monitoring Suppl (FreeStyle Lite) deviceIndicatio ns:Type 2 diabetes mellitus with hyperglycemia, without long-term current use of insulin ([facility]) Inject under the skin in the morning. Test daily before all meals/snacks and once before bedtime. 1 each 05/06/20 23 Active venlafaxine XR (Effexor XR) 37.5 MG 24 hr capsuleIndicati ons:Other depression Take 1 capsule (37.5 mg) by mouth in the morning. Do not crush or chew. 30 capsule 11 05/09/20 23 Active betamethasone valerate (Valisone) 0.1 % ointmentIndicat ions:Hypertroph ic scar of skin Apply topically if needed in the morning and at bedtime (dryness). 45 g 2 05/09/20 23 Active albuterol 108 (90 Base) MCG/ACT inhaler Inhale 2 puffs every 6 (six) hours if needed for wheezing. 18 g 11 07/22/19 24 025 Active Mometasone Furoate (Asmanex HFA) 100 MCG/ACT aerosol Inhale 2 Inhalations 2 times daily. 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 1 each 12 05/27/20 24 Active meloxicam (Mobic) 15 MG tablet TAKE ONE TABLET BY MOUTH EVERY DAY. 30 tablet 5 06/12/19 25 Active meloxicam (Mobic) 15 MG tablet TAKE ONE TABLET BY MOUTH EVERY DAY. 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 No risk for SI, nor self-harm. Reason for visit was to assess symptoms, provide intervention and offer referrals. Family health issues and life stressors are exacerbating symptoms. Provided psychoeducation around depression, anxiety and the importance of being med compliance as part of treatment. Plan is to refer patient for OP individual therapy. Declined CM referral. At this time Yoan Danny MurphyBenewah meets criteria for Visit Diagnoses: Problem List Items Addressed This Visit Other Anxiety Severe episode of recurrent major depressive disorder, without psychotic features (CMS/HCC) Stress-related problem Patient ready to address current needs Yes Strengths include awareness of the problem and motivation to change. PLAN: 1. Follow up with [facility] [place]: Not recommended for follow-up 2. Patient goal is to be connected with therapy services and be able to manage stress 3. Behavioral Recommendations a. Referral for OP individual therapy b. Follow PCP recommendations regarding meds. c. Utilize coping mechanisms provided into daily routine Severe episode of recurrent major depressive disorder, without psychotic features 05/14/2023 Assessment & Plan (05/14/2023 12:39 PM EST): Patient with symptoms of depression and anxiety. No risk for SI, nor self-harm. Reason for visit was to assess symptoms, provide intervention and offer referrals. Family health issues and life stressors are exacerbating symptoms. Provided psychoeducation around depression, anxiety and the importance of being med compliance as part of treatment. Plan is to refer patient for OP individual therapy. Declined CM referral. At this time Yoan Burk meets criteria for Visit Diagnoses: Problem List Items Addressed This Visit Other Anxiety Severe episode of recurrent major depressive disorder, without psychotic features (CMS/HCC) Stress-related problem Patient ready to address current needs Yes Strengths include awareness of the problem and motivation to change. PLAN: 1. Follow up with [facility] [place]: Not recommended for follow-up 2. Patient goal is to be connected with therapy services and be able to manage stress 3. Behavioral Recommendations a. Referral for OP individual therapy b. Follow PCP recommendations regarding meds. c. Utilize coping mechanisms provided into daily routine Stress-related problem 05/14/2023 Assessment & Plan (05/14/2023 12:39 PM EST): Patient with symptoms of depression and anxiety. No risk for SI, nor self-harm. Reason for visit was to assess symptoms, provide intervention and offer referrals. Family health issues and life stressors are exacerbating symptoms. Provided psychoeducation around depression, anxiety and the importance of being med compliance as part of treatment. Plan is to refer patient for OP individual therapy. Declined CM referral. At this time Yoan Burk meets criteria for Visit Diagnoses: Problem List Items Addressed This Visit Other Anxiety Severe episode of recurrent major depressive disorder, without psychotic features (CMS/HCC) Stress-related problem Patient ready to address current needs Yes Strengths include awareness of the problem and motivation to change. PLAN: 1. Follow up with [facility] [place]: Not recommended for follow-up 2. Patient goal is to be connected with therapy services and be able to manage stress 3. Behavioral Recommendations a. Referral for OP individual therapy b. Follow PCP recommendations regarding meds. c. Utilize coping mechanisms provided into daily routine Type 2 diabetes mellitus 10/08/2022 Assessment & Plan (10/08/2022 12:26 PM EDT): A1C 13.1 today Restart meds He is interested in natural remedies for blood sugar control, is aware should talk to his PCP about this, and take allopathic and natural remedies together followup in 3 months with PCP Methicillin resistant Staphylococcus aureus infe ction 10/08/2022 Chronic pain of left knee 10/08/2022 Assessment & Plan (09/05/2023 4:34 PM EDT): Patient here for a sick visit with c/o acute on chronic left knee pain on and off for years. Has been using Meloxicam with no good results On exam, there is tenderness to palpation anterior keft knee, No redness, no swelling, decreased ROM due to pain Etiology ? DJD, mild joint effusion Plan: Continue Meloxicam, Plain films left knee x-ray, Pt c/o knee feels likes will give way, need to rule out Meniscal derrangement Ortho evaluation for steroid injection Hypertensive disorder 10/08/2022 Assessment & Plan (10/08/2022 12:25 PM EDT): Restart meds for HTN Asymptomatic in clinic Does monitor at home, sees 150s/90s Alcoholism 10/08/2022 Acute right-sided low back pain 10/08/2022 Assessment & Plan (10/08/2022 12:27 PM EDT): No red flag symptoms Xray due to history of trauma Muscle relaxer and Naproxen Left leg cellulitis 10/08/2022 Assessment & Plan (10/08/2022 12:28 PM EDT): Doxycycline 100mg BID x 7 days Do not scratch or pick at wound followup if not improved in 2-3 days Encounters Date Type Department Care Team Description 07/03/2024 Orders Only [facility] External Provider, [facility] 06/19/2024 Telephone [facility] [address] [place] [address] Nick Levy MD 06/12/2024 Refill [facility] [address] [place] [address] Nick Levy MD 05/28/2024 Telephone [facility] [address] [place], [place] [phone] Phyllis Cuba RN Results 05/27/2024 9:00 AM EST Office Visit [facility] [address] [place] [address] Nick Levy MD Type 2 diabetes mellitus with hyperglycemia, without long-term current use of insulin ([facility]) (Primary Dx); Primary hypertension; Encounter for immunization; Chronic toe pain, left foot; Primary osteoarthritis of right foot; Other chest pain; 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 (CMS/HCC); Severe episode of recurrent major depressive disorder, without psychotic features ([facility]); Alcoholism (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) 04/27/2024 Telephone [facility] [address] [place] [address] Raza Gallegos DDS 04/23/2024 Refill [facility] [address] [place] [address] Nick Levy MD 04/22/2024 Refill [facility] [address] [place] [address] Nick Levy MD 04/21/2024 9:00 AM EST Office Visit [facility] [address] [place] [address] Mary Jo Daniel from Last 3 Months Immunizations Name Administration Dates Next Due Tdap 05/27/2024 Family History Medical History Relation Name Comments dementia Father Hypertension Mother Stroke Mother brain tumor Mother Relation Name Status Comments Father Mother Social History Tobacco Use Types Packs/Day Years Used Date Smoking Tobacco: Never Passive Smoke Exposure: Never Smokeless Tobacco: Never Tobacco Cessation:Counseling Given: Not Answered Alcohol Use Standard Drinks/Week Comments Not Currently 0 (1 standard drink = 0.6 oz pur e alcohol) oca Depression Answer Date Recorded Patient Health Questionnaire-9 Score 11 05/14/2023 Patient Health Questionnaire-9 Score 11 05/14/2023 Last PHQ-9: Questionnaire Data Not on file 1 07/15/2022 Housing Stability Answer Date Recorded What is your housing situation today? I have stephen anjum 04/01/[address] you li [...] Orientation Straight 04/09/2022 10 :15 AM EDT Last Filed Vital Signs Vital Sign Reading Time Taken Comments Blood Pressure 132/85 05/27/2024 9:09 AM EST Pulse 86 05/27/2024 9:09 AM EST Temperature 36.5 ??C (97.7 ??F) 05/27/2024 9:09 AM ES T Respiratory Rate 20 05/27/2024 9:09 AM EST Oxygen Saturation 97% 05/27/2024 9:09 AM EST Inhaled Oxygen Concentration - - Weight 79.4 kg (175 lb) 05/27/2024 9:09 AM EST Height 170.2 cm (5' 7 ) 05/27/2024 9:09 AM EST Body Mass Index 27.41 05/27/2024 9:09 AM EST Plan of Treatment Upcoming Encounters Date Type Department Care Team (Late st Contact Info) Description 07/06/2024 9:30 AM EST Medication Management [facility] [address] [place], [place] [phone] Marbella Thapa, AbhayD [address] [place] [address] 07/15/2024 9:00 AM EST Office Visit [facility] [address] [place], [place] [phone] Nick Levy MD [address] [place] [address] Health Maintenance Due Date Last Done Comments CT Colonography 1969 Colonoscopy 1969 Colorectal Cancer Screening 1969 Dental Oral Exam 1969 Dental Prophylaxis 1969 Dental X-Ray: Full Mouth 1969 FIT DNA/Cologuard 1969 FIT 1969 FOBT 1970 HIV Screening 1970 Sigmoidoscopy 1969 Alcohol/Substance Use Screening 1981 Hepatitis B Vaccines (1 of 3 - 19+ 3-dose series) 1988 Zoster Vaccines (1 of 2) 2019 SDOH Screening 10/09/2023 10/08/2022 Depression Monitoring (PHQ-9) 11/13/2023 05/14/2023, 05/14/2023 Diabetes: Urine Protein Screening 01/01/2024 12/31/2022, 08/07/2019 Depression Screening 05/14/2024 05/14/2023, 05/14/20 23 Eye Exam 05/23/2024 05/23/2023, 05/10, 05/23/2023, Additional history exists Diabetes: Hemoglobin A1C 08/25/202405/27/ 024, 05/09/2023, 12/27/2022, Additional history exists Influenza Vaccine (#1) 2024 Postp oned from 02/09/2024 (Patient Refused) Dental X-Ray: Bitewings 04/22/2025 04/21/2024, 08/05 COVID-19 Vaccine ( - season) 2025 Postponed from 02/09/2024 (Patient Refused) Diabetes: Foot Exam 05/27/2025 05/27/2024, 05/09/2023, 05/09/2023, Additional history exists Lipid Panel 05/27/2025 05/27/2024 Pneumococcal Vaccine: Pediatrics (0 to 5 Years) and At-Risk Patients (6 to 64 Years) (1 of 2 - PCV) 05/27/2025 Postponed from 1975 (Patient Refused) Tobacco Screening 05/27/2025 05/27/2024 DTaP/Tdap/Td Vaccines (2 - Td or Tdap) 05/27/2034 05/27/2024, 11/15/2015 RSV Patients and Patients Aged 60 years or older (1 - 1-dose 75+ series) 2044 Hepatitis C Screening Completed 05/27/2024 HIB Vaccines Aged Out No longer eligi ble based on patient's age to complete this topic HPV Vaccines Aged Out No longer eligi ble based on patient's age to complete this topic Hepatitis A Vaccines Aged Out No long er eligible based on patient's age to complete this topic IPV Vaccines Aged Out No longer eligi ble based on patient's age to complete this topic Meningococcal Vaccine Aged Out No genna edd eligible based on patient's age to complete this topic RSV under 20 months Aged Out No longe r eligible based on patient's age to complete this topic Rotavirus Vaccines Aged Out No longer eligible based on patient's age to complete this topic Procedures Procedure Name Priority Date/Time Associated Diagnosis Comments XR WRIST 1-2 VIEWS RIGHT Routine 07/03/2024 11:00 AM EST XR ELBOW 1-2 VIEWS RIGHT Routine 07/03/2024 11:00 AM EST XR LUMBAR SPINE 2-3 VIEWS Routine 07/03/2024 10:50 AM EST XR SHOULDER 2+ VIEWS RIGHT Routine 07/03/2024 10:50 AM EST US ABDOMEN COMPLETE Routine 06/19/2024 7 :48 AM EST Transaminitis ECG 12-LEAD Routine 05/27/2024 11:54 AM EST Other chest pain HEPATITIS B SURFACE ANTIBODY, QUALITATIVE Routine 05/27/2024 10:31 AM EST Type 2 diabetes mellitus with hyperglycemia, without long-term current use of insulin (CMS/HCC) Primary hypertension LIPID PANEL, STANDARD Routine 05/27/2024 10:31 AM EST Type 2 diabetes mellitus with hyperglycemia, without long-term current use of insulin (CMS/HCC) Primary hypertension TSH W/REFLEX TO FT4 Routine 05/27/2024 1 0:31 AM EST Type 2 diabetes mellitus with hyperglycemia, without long-term current use of insulin (CMS/HCC) Primary hypertension HEPATITIS C AB W/REFL TO HCV RNA, QN, PCR Routine 05/27/2024 10:31 AM EST Type 2 diabetes mellitus with hyperglycemia, without long-term current use of insulin (CMS/HCC) Primary hypertension COMPREHENSIVE METABOLIC PANEL Routine 05/27/2024 10:31 AM EST Type 2 diabetes mellitus with hyperglycemia, without long-term current use of insulin (CMS/HCC) Primary hypertension Other chest pain CBC WITH AUTO DIFFERENTIAL Routine 05/27/2024 10:31 AM EST Type 2 diabetes mellitus with hyperglycemia, without long-term current use of insulin (CMS/HCC) Primary hypertension Other chest pain POCT GLUCOSE Routine 05/27/2024 9:35 AM EST Type 2 diabetes mellitus with hyperglycemia, without long-term current use of insulin (CMS/HCC) POCT GLYCATED HEMOGLOBIN, TOTAL Routine 05/27/2024 9:31 AM EST Type 2 diabetes mellitus with hyperglycemia, without long-term current use of insulin (CMS/HCC) 15 LIMITED ORAL EVALUATION - PROBLEM FOCUSED Routine 04/21/2024 9:00 AM EST 15 INTRAORAL - PERIAPICAL FIRST RADIOGRAPHIC IMAGE Routine 04/21/2024 9:00 AM EST BITEWING - SINGLE RADIOGRAPHIC IMAGE Routine 04/21/2024 9:00 AM EST 15 EXTRACTION, ERUPTED TOOTH OR EXPOSED ROOT (ELEVATION AND/OR FORCEPS REMOVAL) Routine 04/21/2024 9:00 AM EST ALBUMIN, RANDOM URINE W/CREATININE Routine 12/31/2022 10:19 AM EDT from Last 3 Months or Most Recently Relevant to Health Maintenance Results * XR Wrist 1-2 Views Right (07/03/2024 11:00 AM EST) Anatomical Region Laterality Modality Upper Extremities, Wrist Right Radiogr aphic Imaging 07/03/2024 11:0 0 AM EST Narrative 07/03/2024 11:23 AM EST ? [facility] ?[address] ?[place] [address] ?XRay Report ? Signed ? Patient: Yoan Burk ?MR#: [id number] ?? [id number] ? : 1970 ?Acct:[id number] ? Age/Sex: 54 / M ?ADM Date: 07/03/24 ? Loc: HO.ED ? Attending Dr: ? Ordering Physician: Generic ED Physician ?? Date of Service: 07/03/24 ?? Procedure(s): XR wrist RT 2V ?? Accession Number(s): [id number] ? cc: Nick Levy MD; Generic ED Physician ? EXAMINATION: ?? XR WRIST, RIGHT ? CLINICAL INFORMATION: ?? Fall ? COMPARISON: ?? None available. ? TECHNIQUE: ?? PA, lateral, oblique, and scaphoid views of the right wrist. ? FINDINGS: ?? The bones and soft tissues are normal. No fracture. Alignment is ?? anatomic with normal joint spaces. Negative ulnar variance noted. ?? No erosions or abnormal soft tissue calcifications. ? XR/XR wrist RT 2V ?? IMPRESSION: ?? No acute bony or soft tissue abnormalities. ? Electronically signed by: ??Wesley Shaffer MD ??07/03/2024 11:21 AM EST RP ? Dictated By: ?Wesley Shaffer MD ? Signed By: ?<Electronically signed by Wesley Shaffer MD in OV> ?07/03/24 1121 ? DD/ 1100 ? TD/TT: 07/03/24 1100 ? Client Care Representative: ? Procedure Note Donotarnoldter, Image - 07/03/[address] [address] XRay Report Signed Patient: Yoan Burk KMR#: [id number] : 1970Acct:[id number] Age/Sex: 54 / MADM Date: 07/03/24 Loc: .ED Attending Dr: Ordering Physician: Generic ED Physician Date of Service: 07/03/24 Procedure(s): XR wrist RT 2V Accession Number(s): [id number] cc: Nick Levy MD; Generic ED Physician EXAMINATION: XR WRIST, RIGHT CLINICAL INFORMATION: Fall COMPARISON: None available. TECHNIQUE: PA, lateral, oblique, and scaphoid views of the right wrist. FINDINGS: The bones and soft tissues are normal. No fracture. Alignment is anatomic with normal joint spaces. Negative ulnar variance noted. No erosions or abnormal soft tissue calcifications. XR/XR wrist RT 2V IMPRESSION: No acute bony or soft tissue abnormalities. Electronically signed by: Wesley Shaffer MD 07/03/2024 11:21 AM EST Dictated By: Wesley Shaffer MD Signed By: <Electronically signed by Wesley Shaffer MD in OV> 07/03/24 1121 DD/ 1100 TD/TT: 07/03/24 1100 Client Care Representative: [facility] External Provider IMG XR PROCEDURES Final Result * XR Elbow 1-2 Views Right (07/03/2024 11:00 AM EST) Anatomical Region Laterality Modality Upper Extremities, Elbow Right Radiogr aphic Imaging 07/03/2024 11:0 0 AM EST Narrative 07/03/2024 11:22 AM EST ? [facility] ?[address] ?[place] [address] ?XRay Report ? Signed ? Patient: Benewah,Yoan K ?MR#: [id number] ?? [id number] ? : 1970 ?Acct:[id number] ? Age/Sex: 54 / M ?ADM Date: 07/03/24 ? Loc: HO.ED ? Attending Dr: ? Ordering Physician: Generic ED Physician ?? Date of Service: 07/03/24 ?? Procedure(s): XR elbow RT 2V ?? Accession Number(s): [id number] ? cc: Nick Levy MD; Generic ED Physician ? EXAMINATION: ?? XR ELBOW, RIGHT ? CLINICAL INFORMATION: ?? Fall ? COMPARISON: ?? None available. ? TECHNIQUE: ?? AP, lateral, and oblique views of the right elbow. ? FINDINGS: ?? The bones and soft tissues are normal. No fracture or joint effusion. ?? Alignment is anatomic. Joint spaces are maintained. ? XR/XR elbow RT 2V ?? IMPRESSION: ?? Normal right elbow. ? Electronically signed by: ??Wesley Shaffer MD ??07/03/2024 11:19 AM EST RP ? Dictated By: ?Wesley Shaffer MD ? Signed By: ?<Electronically signed by Wesley Shaffer MD in OV> ?07/03/24 1119 ? DD/ 1100 ? TD/TT: 07/03/24 1100 ? Client Care Representative: ? Procedure Note Rainer Guardado - 07/03/[address] [address] XRay Report Signed Patient: Yoan Burk KMR#: [id number] : 1970Acct:[id number] Age/Sex: 54 / MADM Date: 07/03/24 Loc: HO.ED Attending Dr: Ordering Physician: Clemente ED Physician Date of Service: 07/03/24 Procedure(s): XR elbow RT 2V Accession Number(s): [id number] cc: Nick Levy MD; Generic ED Physician EXAMINATION: XR ELBOW, RIGHT CLINICAL INFORMATION: Fall COMPARISON: None available. TECHNIQUE: AP, lateral, and oblique views of the right elbow. FINDINGS: The bones and soft tissues are normal. No fracture or joint effusion. Alignment is anatomic. Joint spaces are maintained. XR/XR elbow RT 2V IMPRESSION: Normal right elbow. Electronically signed by: Wesley Shaffer MD 07/03/2024 11:19 AM EST Dictated By: Wesley Shaffer MD Signed By: <Electronically signed by Wesley Shaffer MD in OV> 07/03/24 1119 DD/ 1100 TD/TT: 07/03/24 1100 Client Care Representative: [facility] External Provider IMG XR PROCEDURES Final Result * XR Shoulder 2+ Views Right (07/03/2024 10:50 AM EST) Anatomical Region Laterality Modality Upper Extremities, Shoulder Right Radi ographic Imaging 07/03/2024 10:5 0 AM EST Narrative 07/03/2024 11:26 AM EST ? [facility] ?[address] ?[place] [id number] ?XRay Report ? Signed ? Patient: Yoan Burk ?MR#: [id number] ?? [id number] ? : 1970 ?Acct:[id number] ? Age/Sex: 54 / M ?ADM Date: 07/03/24 ? Loc: HO.ED ? Attending Dr: ? Ordering Physician: Generic ED Physician ?? Date of Service: 07/03/24 ?? Procedure(s): XR shoulder RT min 2V ?? Accession Number(s): [id number] ? cc: Nick Levy MD; Generic ED Physician ? EXAMINATION: ?? XR SHOULDER, RIGHT ? CLINICAL INFORMATION: ?? Fall ??, pain ? COMPARISON: ?? None available. ? TECHNIQUE: ?? Three views of the right shoulder. ? FINDINGS: ?? No fracture, dislocation, or suspicious bone lesion. Normal alignment. ?? Normal glenohumeral joint space. ?? Mild arthritic spurring of the AC joint which demonstrates minimal ?? subluxation. Correlate with point tenderness for low-grade AC injury. ?? Neutral lateral acromion with a small associated subacromial spur. ?? No subacromial narrowing. ? Remainder of the bony and soft tissue structures appear normal. ? XR/XR shoulder RT min 2V ?? IMPRESSION: ?? 1. Minimal subluxation of the AC joint, possibly within normal ?? variation. Correlate with point tenderness for low-grade AC injury. ?? 2. Otherwise, no acute findings identified. ? Electronically signed by: ??Wesley Shaffer MD ??07/03/2024 11:24 AM EST RP ? Dictated By: ?Wesley Shaffer MD ? Signed By: ?<Electronically signed by Wesley Shaffer MD in OV> ?07/03/24 1124 ? DD/ 1050 ? TD/TT: 07/03/24 1100 ? Client Care Representative: ? Procedure Note Donketty, Image - 07/03/2024 [place] [address] XRay Report Signed Patient: Yoan Burk KMR#: [id number] : 1970Acct:[id number] Age/Sex: 54 / MADM Date: 07/03/24 Loc: .ED Attending Dr: Ordering Physician: Generic ED Physician Date of Service: 07/03/24 Procedure(s): XR shoulder RT min 2V Accession Number(s): [id number] cc: Nick Levy MD; Generic ED Physician EXAMINATION: XR SHOULDER, RIGHT CLINICAL INFORMATION: Fall , pain COMPARISON: None available. TECHNIQUE: Three views of the right shoulder. FINDINGS: No fracture, dislocation, or suspicious bone lesion. Normal alignment. Normal glenohumeral joint space. Mild arthritic spurring of the AC joint which demonstrates minimal subluxation. Correlate with point tenderness for low-grade AC injury. Neutral lateral acromion with a small associated subacromial spur. No subacromial narrowing. Remainder of the bony and soft tissue structures appear normal. XR/XR shoulder RT min 2V IMPRESSION: 1. Minimal subluxation of the AC joint, possibly within normal variation. Correlate with point tenderness for low-grade AC injury. 2. Otherwise, no acute findings identified. Electronically signed by: Wesley Shaffer MD 07/03/2024 11:24 AM EST Dictated By: Wesley Shaffer MD Signed By: <Electronically signed by Wesley Shaffer MD in OV> 07/03/24 1124 DD/ 1050 TD/TT: 07/03/24 1100 Client Care Representative: us [facility] External Provider IMG XR PROCEDURES Final Result * XR Lumbar Spine 2-3 Views (07/03/2024 10:50 AM EST) Anatomical Region Laterality Modality Spine, L-spine Radiographic Kyara ging 07/03/2024 10:5 0 AM EST Narrative 07/03/2024 11:29 AM EST ? [facility] ?[address] ?[place] [address] ?XRay Report ? Signed ? Patient: Yoan Burk ?MR#: [id number] ?? [id number] ? : 1970 ?Acct:[id number] ? Age/Sex: 54 / M ?ADM Date: 07/03/24 ? Loc: HO.ED ? Attending Dr: ? Ordering Physician: Generic ED Physician ?? Date of Service: 07/03/24 ?? Procedure(s): XR lumbar spine 2-3V ?? Accession Number(s): [id number] ? cc: Nick Levy MD; Generic ED Physician ? EXAMINATION: ?? XR LUMBOSACRAL SPINE ? CLINICAL INFORMATION: ?? Fall, back pain, slipped on ice. ? COMPARISON: ?? 10/08/2022. ? TECHNIQUE: ?? Three views of the lumbosacral spine. ? FINDINGS: ?? No significant scoliosis. Normal lordosis. ?? No fracture, compression deformity, traumatic subluxation, or ?? suspicious focal bone lesion. ?? Very mild disc degeneration most notable at T12-L1 and L1-L2. ?? Normal facet alignment. No pars defects. ? Imaged sacrum and SI joints appear normal. ? Surgical clips overlie the right upper quadrant and overlying the right ?? sacral wing. ?? Soft tissues otherwise normal. ? XR/XR lumbar spine 2-3V ?? IMPRESSION: ?? 1. No acute findings lumbar spine. ? Electronically signed by: ??Wesley Shaffer MD ??07/03/2024 11:26 AM EST RP ?? Workstation: [id number] ? Dictated By: ?Wesley Shaffer MD ? Signed By: ?<Electronically signed by Wesley Shaffer MD in OV> ?07/03/24 1126 ? DD/ 1050 ? TD/TT: 07/03/24 1100 ? Client Care Representative: ? Procedure Note Donananyater, Image - 07/03/2024 [place] [address] XRay Report Signed Patient: Yoan Burk KMR#: [id number] : 1970Acct:[id number] Age/Sex: 54 / MADM Date: 07/03/24 Loc: HO.ED Attending Dr: Ordering Physician: Generic ED Physician Date of Service: 07/03/24 Procedure(s): XR lumbar spine 2-3V Accession Number(s): [id number] cc: Nick Levy MD; Generic ED Physician EXAMINATION: XR LUMBOSACRAL SPINE CLINICAL INFORMATION: Fall, back pain, slipped on ice. COMPARISON: 10/08/2022. TECHNIQUE: Three views of the lumbosacral spine. FINDINGS: No significant scoliosis. Normal lordosis. No fracture, compression deformity, traumatic subluxation, or suspicious focal bone lesion. Very mild disc degeneration most notable at T12-L1 and L1-L2. Normal facet alignment. No pars defects. Imaged sacrum and SI joints appear normal. Surgical clips overlie the right upper quadrant and overlying the right sacral wing. Soft tissues otherwise normal. XR/XR lumbar spine 2-3V IMPRESSION: 1. No acute findings lumbar spine. Electronically signed by: Wesley Shaffer MD 07/03/2024 11:26 AM EST Dictated By: Wesley Shaffer MD Signed By: <Electronically signed by Wesley Shaffer MD in OV> 07/03/24 1126 DD/ 1050 TD/TT: 07/03/24 1100 Client Care Representative: [facility] External Provider IMG XR PROCEDURES Final Result * US Abdomen Complete (06/19/2024 7:48 AM EST) Anatomical Region Laterality Modality Abdomen Ultrasound 06/19/2024 7:48 AM EST Narrative 06/19/2024 7:50 AM EST ? [facility] ?[address] ?[place] [address] ? Ultrasound Report ? Signed ? Patient: Daryl Burkph Danny ?MR#: [id number] ?? [id number] ? : 1970 ?Acct:[id number] ? Age/Sex: 54 / M ?ADM Date: 06/17/24 ? Loc: HO.US ? Attending Dr: Nick Levy MD ? Ordering Physician: Nick Levy MD ?? Date of Service: 06/17/24 ?? Procedure(s): US abdomen complete ?? Accession Number(s): [id number] ? cc: Nick Levy MD ? CLINICAL HISTORY: Transaminitis ? US abdomen complete ? Comparison: None ? Findings: ?? The visualized pancreas is normal. ?? The aorta and inferior vena cava are normal caliber. ? The appearance of the liver suggests fatty infiltration without focal ?? lesion. ?? There is no intrahepatic bile duct dilatation. ?? The common duct is 3.6 mm in diameter. ?? The gallbladder is normal. There is no sonographic Bernardo sign. ?? The main portal vein is antegrade. ? The right kidney is 11.1 cm in length. ?? The left kidney is 11.0 cm in length. ?? The spleen is normal. ?? No ascites. ? IMPRESSION: ?? 1. Hepatic steatosis. ? This document has been electronically signed by: Isiah Schwartz MD on ?? 06/19/2024 07:48:14 ? Dictated By: ?Isiah Schwartz MD ? Signed By: ?<Electronically signed by Isiah Schwartz MD in OV> ?06/19/24 0749 ? DD/ 0748 ? TD/TT: 06/19/24 0748 ? Client Care Representative: ? Procedure Note Donotuseinterpreter, Image - 06/19/[address] [address] Ultrasound Report Signed Patient: Yoan Burk KMR#: [id number] : 1970Acct:[id number] Age/Sex: 54 / MADM Date: 06/17/24 Loc: HO.US Attending Dr: Nick Levy MD Ordering Physician: Nick Levy MD Date of Service: 06/17/24 Procedure(s): US abdomen complete Accession Number(s): [id number] cc: Nick Levy MD CLINICAL HISTORY: Transaminitis US abdomen complete Comparison: None Findings: The visualized pancreas is normal. The aorta and inferior vena cava are normal caliber. The appearance of the liver suggests fatty infiltration without focal lesion. There is no intrahepatic bile duct dilatation. The common duct is 3.6 mm in diameter. The gallbladder is normal. There is no sonographic Bernardo sign. The main portal vein is antegrade. The right kidney is 11.1 cm in length. The left kidney is 11.0 cm in length. The spleen is normal. No ascites. IMPRESSION: 1. Hepatic steatosis. This document has been electronically signed by: Isiah Schwartz MD on 06/19/2024 07:48:14 Dictated By: Isiah Schwartz MD Signed By: <Electronically signed by Isiah Schwartz MD in OV> 06/19/24 0749 DD/ 0748 TD/TT: 06/19/2448 Client Care Representative: us Nick Levy MD IMG US PROCEDURES Final Res ult * ECG 12 lead (05/27/2024 11:54 AM EST) Narrative Nick Levy MD - 05/27/2024 11:54 AM EST Sinus rhythm. HR: 79. Glenn: 67 degrees. No sign of LAE, CRUZ. No sign of hypertrophy. No ST elevation or depression. Normal EKG> us Nick Levy MD ECG ORDERABLES Final Resul t * TSH W/Reflex to FT4 (05/27/2024 10:31 AM EST) TSH reflex Free T4 2.46 0.32 - 4.0 uIU/mL [facility] Blood Venous blood specimen / Unknown 05/27/2024 10:31 AM EST 05/27/2024 2:06 PM EST us Nick Levy MD LAB BLOOD ORDERABLES Final Result [facility] [address] [place] [address] [phone] * CBC auto differential (05/27/2024 10:31 AM EST) White Blood Count 7.4 4.8 - 10.8 X10*3/uL [facility] Red Blood Count 5.50 4.60 - 5.80 X10*6/uL [facility] Hemoglobin 15.1 14.0 - 18.0 g/dl [facility] Hematocrit 45.0 42.0 - 52.0 % [facility] Mean Corpuscular Volume 81.8 80.0 - 98.0 fL [facility] Mean Corpuscular Hemoglobin 27.5 27.0 - 33.0 pg [facility] Mean Corpuscular HGB Conc 33.6 31.0 - 36.0 g/dl [facility] Red Cell Distribution Width 12.5 11.0 - 16.0 % [facility] Platelet Count 238 160 - 400 X10*3/uL [facility] Mean Platelet Volume 11.7 9.4 - 12.4 fL [facility] Neutrophils Percent Auto 67.1 45 - 73 % [facility] Imm Gran Pct Auto 0.3 0.0 - 0.4 % [facility] Lymphocytes Percent Auto 23.2 20 - 40 % [facility] Monocytes Percent Auto 7.3 2 - 11 % [facility] Eosinophils Percent Auto 1.6 0 - 4 % [facility] Basophils Percent Auto 0.5 0 - 2 % [facility] NRBC Pct Auto 0.0 0.0 - 0.2 /100WBC [facility] Neutrophils Absolute Auto 5.0 2.0 - 8.3 x10*3/uL [facility] Imm Gran Abs Auto 0.02 0.00 - 0.03 X10*3/uL [facility] Lymphocytes Absolute Auto 1.7 1.2 - 4.9 X10*3/uL [facility] Monocytes Absolute Auto 0.5 0.1 - 1.2 X10*3/uL [facility] Eosinophils Absolute Auto 0.1 0.0 - 0.4 X10*3/uL [facility] Basophils Absolute Auto 0.0 0.0 - 0.2 X10*3/uL [facility] NRBC Abs Auto 0.000 0.0 - 0.012 X10*3/uL [facility] Blood Venous blood specimen / Unknown 05/27/2024 10:31 AM EST 05/27/2024 2:06 PM EST us Nick Levy MD LAB BLOOD ORDERABLES Final Result Performing Organization Address [facility] Co de Phone Number [facility] [address] [place] [phone] * Hepatitis C Antibody with Reflex to HCV, RNA, Quantitative, Real-Time PCR (05/27/2024 10:31 AM EST) Hepatitis C Antibody Nonreactive Nonreactive [facility] Comment:Antibodies to HCV no t detected; does not exclude early acuteHCV infection. Blood Venous blood specimen / Unknown 05/27/2024 10:31 AM EST 05/27/2024 2:06 PM EST Nick Levy MD LAB BLOOD ORDERABLES Final Result Performing Organization Address [facility]/ZIP Co de Phone Number [facility] [address] [place] [phone] * Hepatitis B Surface Antibody, Qualitative (05/27/2024 10:31 AM EST) ~Hepatitis B Surface Antibody REACTIVE Nonreactive [facility] Comment:REACTIVE: > 11.99 mI U/mL Blood Venous blood specimen / Unknown 05/27/2024 10:31 AM EST 05/27/2024 2:06 PM EST us Nick Levy MD LAB BLOOD ORDERABLES Final Result Performing Organization Address City/[facility]/ZIP Co de Phone Number [facility] [address] [place] [phone] * (ABNORMAL) Lipid Panel, Standard (05/27/2024 10:31 AM EST) Triglycerides 133 <150 mg/dL [facility] Comment:Desirable Triglyceri de: less than 150 mg/dLBorderline High Triglyceride 150-199 mg/dLHigh Triglyceride: 200-499 mg/dLVery High Triglyceride: greater than or equal to 5OO mg/dL Cholesterol 110 <200 mg/dL [facility] Comment:Desirable Cholestero l: less than 200 mg/dLBorderline High Cholesterol: 200-239 mg/dLHigh Cholesterol: greater than 239 mg/dL LDL Cholesterol Calculated 52 <100 mg/dL [facility] Comment:Desirable LDL: less than 100 mg/dLNear Optimal/Above Optimal LDL: 110- 129 mg/dLBorderline High LDL: 130-159 mg/dLHigh LDL: 160-189 mg/dLVery High LDL: greater than or equal to 190 mg/dL HDL Cholesterol 32(L) >40 mg/dL [facility] Comment:Desirable HDL: great er than 40 mg/dL Note: This HDL assay may give artificially low results in patients with liver disease. Blood Venous blood specimen / Unknown 05/27/2024 10:31 AM EST 05/27/2024 2:06 PM EST us Nick Levy MD LAB BLOOD ORDERABLES Final Result [facility] [address] [place] [phone] * (ABNORMAL) Comprehensive Metabolic Panel (05/27/2024 10:31 AM EST) Sodium 136 135 - 145 mmol/L [facility] Potassium 4.0 3.3 - 5.1 mmol/L [facility] Chloride 101 96 - 108 mmol/L [facility] Carbon Dioxide 30(H) 22 - 29 mmol/L [facility] Anion Gap 9(L) 12 - 20 [facility] Urea Nitrogen (BUN) 18(H) 9 - 16 mg/dL [facility] Creatinine, Serum 1.00 0.5 - 1.4 mg/dL [facility] Estimated Glomerular Filt Rate >60 [facility] Comment:Chronic Kidney Disea se: Estimated GFR < 60 mL/min/1.24u9Qfwruk Kidney Disease: Estimated GFR < 15 mL/min/1.73m2 Glucose 387(HH) 60 - 115 mg/dL [facility] Comment:Critical value for G NOELLE: Results called to and read backby: BUZZ Camacho Person calling: DORI Date:05/27/24 Time:1439 Calcium 8.8 8.4 - 10.2 mg/dL [facility] Bilirubin, Total 1.4(H) 0.0 - 1.0 mg/dL [facility] Aspartate Amino Transferase 34 5 - 37 U/L [facility] Alanine Aminotransferase 46(H) 0 - 40 U/L [facility] Total Protein 7.6 6.5 - 8.0 g/dL [facility] Albumin Level 4.3 3.5 - 5.0 g/dL [facility] Alkaline Phosphatase 62 39 - 117 U/L [facility] Blood Venous blood specimen / Unknown 05/27/2024 10:31 AM EST 05/27/2024 2:06 PM EST Nick Levy MD LAB BLOOD ORDERABLES Final Result [facility] [address] [place] [phone] * (ABNORMAL) POCT Glucose (05/27/2024 9:35 AM EST) Glucose Blood, POC 333(A) 60 - 200 mg/dL QC Media Lot # [id number] Lot# Expiration Date [id number] Comment:random Blood Capillary blood specimen / Unknown 05/27/2024 9:35 AM EST us Nick Levy MD POINT OF CARE TEST ENTER/ED IT ORDERABLES Final Result * (ABNORMAL) POCT HGB A1C (05/27/2024 9:31 AM EST) Hemoglobin A1C 11.3(A) 4.0 - 6.0 % QC Media Lot # [id number] Lot# Expiration Date [id number] Blood 05/27/2024 9:31 AM EST us Nick Levy MD POINT OF CARE TEST ENTER/ED IT ORDERABLES Final Result * Albumin, Random Urine W/Creatinine (12/31/2022 10:19 AM EDT) Creatinine, Urine 198.54 mg/dL [facility] Microalbumin Urine 15.0 mg/L [facility] Microalbum Creatinine Ratio Ur 7.5 ug/mg cr [facility] Comment:Albumin/Creatinine R atio Reference Ranges: Normal: < 30 ug/mg creatinine Microalbuminuria: 30 - 300 ug/mg creatinineClinical Albuminuria: > 300 ug/mg creatinine 12/31/2022 10:1 9 AM EDT 12/31/2022 2:13 PM EDT us Nick Levy MD LAB URINE ORDERABLES Final Result [facility] [address] [place] [phone] from Last 3 Months or Most Recently Relevant to Health Maintenance Insurance [facility] D[facility] - HSN FULL (MEDICAID) Care Teams Implementation Analyst Relationship Specialty Start Date End Date Nick Levy MD [address] [place] [phone] PCP - General Internal Medicine 08/06/19
--- OUTSIDE RECORDS SUMMARY | 2024-07-03 14:44 | XMS_ITS | Encounter Summary ---
Author Organization [employer] Address [address] [facility] 7 [place] [address] Care Team Providers Care Anesthetic Assistant Name Role Phone Nick Levy MD Primary Care Provider [phone]- [phone] Reason for Visit * Reason Comments Med Refill Encounter Details Date Type Department Care Team (Late st Contact Info) Description 11/04/2022 Refill [facility] [address] [place] [address] Keena Martinez MD [address] [place] [address] Acute right-sided low back pain, unspecified whether sciatica present Social History Tobacco Use Types Packs/Day Years Used Date Smoking Tobacco: Never Smokeless Tobacco: Never Alcohol Use Standard Drinks/Week Comments Yes 0 (1 standard drink = 0.6 oz pur e alcohol) oca Sex and Gender Information Value Date Recorded Sex Assigned at Male 04/09/2022 10:15 AM EDT Legal Sex Male 10:15 AM EDT Gender Identity Male 04/09/2022 10:15 AM EDT Sexual Orientation Straight 04/09/2022 10 :15 AM EDT COVID-19 Exposure Response Date Recorded In the last 10 days, have yo u been in contact with someone who was confirmed or suspected to have Coronavirus/COVID-19? No / Unsure 10/08/2022 9:31 AM EDT documented as of this encounter Plan of Treatment Upcoming Encounters Date Type Department Care Team (Late Contact Info) Description 07/06/2024 9:30 AM EST Medication Management [facility] [address] [place] [address] Marbella Thapa, PharmD [address] [place] [address] 07/15/2024 9:00 AM EST Office Visit [facility] [address] [place] [address] Nick Levy MD [address] [place] [phone] documented as of this encounter Visit Diagnoses Diagnosis Acute right-sided low back pain, unspecified whether sciatica present documented in this encounter Care Teams Anesthetic Assistant Relationship Specialty Start Date End Date Nick Levy MD [address] [place] [address] PCP - General Internal Medicine 08/06/19 documented as of this encounter
--- OUTSIDE RECORDS SUMMARY | 2024-07-03 14:44 | XMS_ITS | Encounter Summary ---
Author Organization [employer] Address [address] [place] [address] [address] [place] [address] Care Team Providers Care Mexican Food Maker Hand Name Role Phone Nick Levy MD Primary Care Provider [phone]- [phone] Reason for Referral * Imaging (Routine) - Closed Specialty Diagnoses / Procedures Referred By Contac t Referred To Contact Radiology Diagnoses Transaminitis Procedures US Abdomen Complete Nick Levy MD [address] [place] [phone] Phone: tel: fax: [address] Phone: tel: fax: Referral ID Status Reason Start Date Expiration Date Visits Re quested Visits Authorized [id number] Closed 05/27/2024 05/27/2025 1 1 Encounter Details Date Type Department Care Team (Late st Contact Info) Description 05/27/[address] [facility] [address] [place], [place] [phone] Nick Levy MD [address] [place] [phone] Transaminitis (Primary Dx) Social History Tobacco Use Types Packs/Day Years [...] Description 07/06/2024 9:30 AM EST Medication Management [facility] [address] [place] [address] Marbella Thapa PharmD [address] [place] [address] 07/15/2024 9:00 AM EST Office Visit [facility] [address] [place] [address] Nick Levy MD [address] [place] [address] documented as of this encounter Procedures Procedure Name Priority Date/Time Associated Diagnosis Comments US ABDOMEN COMPLETE Routine 06/19/2024 7 :48 AM EST Transaminitis documented in this encounter Results * US Abdomen Complete (06/19/2024 7:48 AM EST) Anatomical Region Laterality Modality Abdomen Ultrasound 06/19/2024 7:48 AM EST Narrative 06/19/2024 7:50 AM EST ? [facility] ?[address] ?[place] [address] ? Ultrasound Report ? Signed ? Patient: Yoan Burk ?MR#: [id number] ?? [id number] ? : 1970 ?Acct:[id number] ? Age/Sex: 54 / M ?ADM Date: 06/17/24 ? Loc: HO.US ? Attending Dr: Nick Levy MD ? Ordering Physician: Nick Levy MD ?? Date of Service: 06/17/24 ?? Procedure(s): US abdomen complete ?? Accession Number(s): [id number] ? cc: Nick Levy MD ? CLINICAL [...] signed by Isiah Schwartz MD in OV> ?06/19/24748 ? DD/ 7 ? TD/TT: 06/19/24747 ? Dictaphone Technician: ? Procedure Note Donotarnoldter, Image - 06/19/[address] [address] Ultrasound Report Signed Patient: Yoan Burk KMR#: [id number] : 1970Acct:[id number] Age/Sex: 54 / MADM Date: 06/17/24 Loc: HO.US Attending Dr: Nick Levy MD Ordering Physician: Nick Levy MD Date of Service: 06/17/24 Procedure(s): US abdomen complete Accession Number(s): [id number] cc: Nick Levy MD CLINICAL HISTORY: Transaminitis [...] in OV> 06/19/24 0749 DD/ 0748 TD/TT: 06/19/24 0748 Dictaphone Technician: us Nick Levy MD IMG US PROCEDURES Final Res ult documented in this encounter Visit Diagnoses Diagnosis Transaminitis- Primary Nonspecific elevation of levels of transaminase or lactic acid dehydrogenase (LDH) documented in this encounter Additional Health Concerns Assessment Noted Time PHQ-9 Depression Total Score: 11 05/14/ 023 11:31 AM EST documented as of this encounter Care Teams Mexican Food Maker Hand Relationship Specialty Start Date End Date Nick Levy MD [address] [place] [phone] PCP - General Internal Medicine 08/06/19 documented as of this encounter
--- OUTSIDE RECORDS SUMMARY | 2024-07-03 14:45 | XMS_ITS | Encounter Summary ---
Author Organization [employer] Address [address] [facility] 7 [place] [address] Care Team Providers Care Copy Holder Name Role Phone Nick Levy MD Primary Care Provider +1- [phone] Encounter Details Date Type Department Care Team ([facility] st Contact Info) Description 06/19/2024 Telephone [facility] [address] [place], [place] [phone] Nick Levy MD [address] [place] [address] Social History Tobacco Use Types Packs/Day Years [...] encounter Miscellaneous Notes * Telephone Encounter - Prashanth Melendez RN - 06/19/2024 4:03 PM EST TC placed, spoke with pt, inform of message below from PCP regarding results/plan. Pt verbalized understanding and agreed to plan. * Telephone Encounter - Prashanth Melendez RN - 06/19/2024 4:03 PM EST ----- Message from Nick Levy MD sent at 06/19/2024 12:03 PM EST ----- The ultrasound shows hepatic steatosis. Will repeat the ultrasound in 6 months to a year to assess improvement. Goal weight loss 5% to 10% of current body weight ----- Message ----- From: Rupal Staton Results In Sent: 06/19/2024 7:50 AM EST To: Nick Levy MD documented in this encounter Plan of Treatment Upcoming Encounters Date Type Department Care Team (Late st Contact Info) Description 07/06/2024 9:30 AM EST Medication Management [facility] [address] [place] [address] Marbella Thapa, PharmD [address] [place] [address] 07/15/2024 9:00 AM EST Office Visit [facility] [address] [place] [address] Nick Levy MD [address] [place] [address] documented as of this encounter Visit Diagnoses Not on filedocumented in this encounter Additional Health Concerns Assessment Noted Time PHQ-9 Depression Total Score: 11 023 11:31 AM EST documented as of this encounter Care Teams Copy Holder Relationship Specialty Start Date End Date Nick Levy MD [address] [place] [address] PCP - General Internal Medicine 08/06/19 documented as of this encounter
--- OUTSIDE RECORDS SUMMARY | 2024-07-03 14:45 | XMS_ITS | Encounter Summary ---
Author Organization [employer] Address [address] [place] [address] Care Team Providers Care Shift Mechanic Name Role Phone Nick Levy MD Primary Care Provider [phone]- [phone] Reason for Visit * Reason Comments Med Refill Encounter Details Date Type Department Care Team (Late st Contact Info) Description 06/12/2024 Refill [facility] MEDICINE [address] [place] [address] Nick Levy MD [address] [place] [address] Social History Tobacco Use Types Packs/Day Years [...] Description 07/06/2024 9:30 AM EST Medication Management [facility] MED & PEDS [address] [place] [address] Marbella Thapa, PharmD [address] [place] [address] 07/15/2024 9:00 AM EST Office Visit [facility] MED & PEDS [address] [place] [address] Nick Levy MD [address] [place] [address] documented as of this encounter Visit Diagnoses Not on filedocumented in this encounter Additional Health Concerns Assessment Noted Time PHQ-9 Depression Total Score: 11 023 11:31 AM EST documented as of this encounter Care Teams Shift Mechanic Relationship Specialty Start Date End Date Nick Levy MD [address] [place] [address] PCP - General Internal Medicine 08/06/19 documented as of this encounter
--- OUTSIDE RECORDS SUMMARY | 2024-07-03 14:45 | XMS_ITS | Encounter Summary ---
Author Organization [employer] Address 75 [facility] 7 [place] [address] Care Team Providers Care Leathersmith Name Role Phone Nick Levy MD Primary Care Provider [phone]- [phone] Encounter Details Date Type Department Care Team ([facility] st Contact Info) Description 05/06/2023 Orders Only [facility] MED & PEDS [address] [place], [place] [phone] Nick Levy MD [address] [place], [place] [phone] Type 2 diabetes mellitus with hyperglycemia, without long-term current use of insulin ([facility]) (Primary Dx) Social History Tobacco Use Types Packs/Day Years Used Date Smoking Tobacco: Never Smokeless Tobacco: Never Alcohol Use Standard Drinks/Week Comments Not Currently 0 (1 standard drink = 0.6 oz pur e alcohol) oca Depression Answer Date Recorded Patient Health Questionnaire-9 Score 10 05/09/2023 Patient Health Questionnaire-9 Score 10 05/09/2023 Last PHQ-9: Questionnaire Data Not on file 1 07/09/2022 Housing Stability Answer Date Recorded What is [...] Answer Date Recorded Patient Health Questionnaire-2 Score 3 05/09/2023 Sex and Gender Information Value Date Recorded Sex Assigned at Male 04/09/2022 10:15 AM EDT Legal Sex Male 10:15 AM EDT Gender Identity Male 04/09/2022 10:15 AM EDT Sexual Orientation Straight 04/09/2022 10 :15 AM EDT documented as of this encounter Plan of Treatment Upcoming Encounters Date Type Department Care Team (Late st Contact Info) Description 07/06/2024 9:30 AM EST Medication Management [facility] MED & PEDS [address] [place] [address] Marbella Thapa, PharmD [address] [place] [address] 07/15/2024 9:00 AM EST Office Visit [facility] MED & PEDS [address] [place] [address] Nick Levy MD [address] [place] [address] documented as of this encounter Visit Diagnoses Diagnosis Type 2 diabetes mellitus with hyperglycemia, without long-term current use of insulin ([facility])- Primary documented in this encounter Additional Health Concerns Assessment Noted Time PHQ-9 Depression Total Score: 3 12/28/19 23 12:20 PM EDT documented as of this encounter Care Teams Leathersmith Relationship Specialty Start Date End Date Nick Levy MD [address] [place] [address] PCP - General Internal Medicine 08/06/19 documented as of this encounter
--- OUTSIDE RECORDS SUMMARY | 2024-07-03 14:45 | XMS_ITS | Encounter Summary ---
Author Organization [employer] Address 75 [facility] 7t [place] [address] Care Team Providers Care Sales Floor Associate Name Role Phone Nick Levy MD Primary Care Provider [phone] Encounter Details Date Type Department Care Team (Late st Contact Info) Description 07/03/2024 Orders Only [facility] External Provider, [facility] Social History Tobacco Use Types Packs/Day Years [...] Description 07/06/2024 9:30 AM EST Medication Management [facility] MED & PEDS [address] [place], [place] [phone] Marbella Thapa, PharmD [address] [place] [address] 07/15/2024 9:00 AM EST Office Visit [facility] MED & PEDS [address] [place], [place] [phone] Nick Levy MD [address] [place], [place] [phone] documented as of this encounter Procedures Procedure Name Priority Date/Time Associated Diagnosis Comments XR WRIST 1-2 VIEWS RIGHT Routine 07/03/2024 11:00 AM EST XR ELBOW 1-2 VIEWS RIGHT Routine 07/03/2024 11:00 AM EST XR SHOULDER 2+ VIEWS RIGHT Routine 07/03/2024 10:50 AM EST XR LUMBAR SPINE 2-3 VIEWS Routine 07/03/2024 10:50 AM EST documented in this encounter Results * XR Wrist 1-2 Views Right (07/03/2024 11:00 AM EST) Anatomical Region Laterality Modality Upper Extremities, Wrist Right Radiogr aphic Imaging 07/03/2024 11:0 0 AM EST Narrative 07/03/2024 11:23 AM EST ? [facility] ?[address] ?[place] [address] ?XRay Report ? Signed ? Patient: Wm,Yoan K ?MR#: [id number] ?? [id number] ? : 1970 ?Acct:[id number] ? Age/Sex: 54 / M ?ADM Date: 07/03/24 ? Loc: HO.ED ? Attending Dr: ? Ordering Physician: Generic ED Physician ?? Date of Service: 07/03/24 ?? Procedure(s): XR wrist RT 2V ?? Accession Number(s): [id number] ? cc: Nick Levy MD; Generic ED [...] DD/ 1100 ? TD/TT: 07/03/24 1100 ? Benefits Advisor: ? Procedure Note Geo, Image - 07/03/[address] [address] XRay Report Signed Patient: Yoan Burk KMR#: [id number] : 1970Acct:[id number] Age/Sex: 54 / MADM Date: 07/03/24 Loc: HO.ED Attending Dr: Ordering Physician: Clemente ED Physician Date of Service: 07/03/24 Procedure(s): XR wrist RT 2V Accession Number(s): [id number] cc: Nick Levy MD; [facility] ED Physician EXAMINATION: XR WRIST, RIGHT CLINICAL [...] 07/03/24 1121 DD/ 1100 TD/TT: 07/03/24 1100 Benefits Advisor: [facility] External Provider IMG XR PROCEDURES Final Result * XR Elbow 1-2 Views Right (07/03/2024 11:00 AM EST) Anatomical Region Laterality Modality Upper Extremities, Elbow Right Radiogr aphic Imaging 07/03/2024 11:0 0 AM EST Narrative 07/03/2024 11:22 AM EST ? [facility] ?[address] ?[place] [address] ?XRay Report ? Signed ? Patient: Wm,Yoan K ?MR#: [id number] ?? [id number] ? : 1970 ?Acct:[id number] ? Age/Sex: 54 / M ?ADM Date: 07/03/24 ? Loc: HO.ED ? Attending Dr: ? Ordering Physician: Generic ED Physician ?? Date of Service: 07/03/24 ?? Procedure(s): XR elbow RT 2V ?? Accession Number(s): [id number] ? cc: Nick Levy MD; Generic ED [...] DD/ 1100 ? TD/TT: 07/03/24 1100 ? Benefits Advisor: ? Procedure Note Geo, Image - 07/03/[address] [address] XRay Report Signed Patient: Yoan Burk KMR#: [id number] : 1970Acct:[id number] Age/Sex: 54 / MADM Date: 07/03/24 Loc: HO.ED Attending Dr: Ordering Physician: Generic ED Physician Date of Service: 07/03/24 Procedure(s): XR elbow RT 2V Accession Number(s): [id number] cc: Nick Levy MD; Generic ED Physician [...] 07/03/24 1119 DD/ 1100 TD/TT: 07/03/24 1100 Benefits Advisor: us [facility] External Provider IMG XR PROCEDURES Final Result * XR Lumbar Spine 2-3 Views (07/03/2024 10:50 AM EST) Anatomical Region Laterality Modality Spine, L-spine Radiographic Kyara ging 07/03/2024 10:5 0 AM EST Narrative 07/03/2024 11:29 AM EST ? [facility] ?[address] ?[place], [place] [address] ?XRay Report ? Signed ? Patient: Wm,Yoan K ?MR#: [id number] ?? [id number] ? : 1970 ?Acct:[id number] ? Age/Sex: 54 / M ?ADM Date: 07/03/24 ? Loc: HO.ED ? Attending Dr: ? Ordering Physician: Generic ED Physician ?? Date of Service: 07/03/24 ?? Procedure(s): XR lumbar spine 2-3V ?? Accession Number(s): [id number] ? cc: Nick Levy MD; Generic ED [...] Shaffer MD ??07/03/2024 11:26 AM EST RP ? Dictated By: ?Wesley Shaffer MD ? Signed By: ?<Electronically signed by Wesley Shaffer MD in OV> ?07/03/24 1126 ? DD/ 1050 ? TD/TT: 07/03/24 1100 ? Benefits Advisor: ? Procedure Note Geo, Image - 07/03/[address] [address] XRay Report Signed Patient: Yoan Burk KMR#: [id number] : 1970Acct:[id number] Age/Sex: 54 / MADM Date: 07/03/24 Loc: HO.ED Attending Dr: Ordering Physician: Generic ED Physician Date of Service: 07/03/24 Procedure(s): XR lumbar spine 2-3V Accession Number(s): [id number] cc: Nick Levy MD; Generic ED Physician [...] 07/03/24 1126 DD/ 1050 TD/TT: 07/03/24 1100 Benefits Advisor: us [facility] External Provider IMG XR PROCEDURES Final Result * XR Shoulder 2+ Views Right (07/03/2024 10:50 AM EST) Anatomical Region Laterality Modality Upper Extremities, Shoulder Right Radi ographic Imaging 07/03/2024 10:5 0 AM EST Narrative 07/03/2024 11:26 AM EST ? [place] [facility] ?[address] ?[place] [address] ?XRay Report ? Signed ? Patient: Esmeralda,Yoan K ?MR#: [id number] ?? [id number] ? : 1970 ?Acct:[id number] ? Age/Sex: 54 / M ?ADM Date: 07/03/24 ? Loc: HO.ED ? Attending Dr: ? Ordering Physician: Generic ED Physician ?? Date of Service: 07/03/24 ?? Procedure(s): XR shoulder RT min 2V ?? Accession Number(s): [id number] ? cc: Nick Levy MD; Generic ED [...] Shaffer MD ??07/03/2024 11:24 AM EST RP ?? Workstation: [id number] ? Dictated By: ?Wesley Shaffer MD ? Signed By: ?<Electronically signed by Wesley Shaffer MD in OV> ?07/03/24 1124 ? DD/ 1050 ? TD/TT: 07/03/24 1100 ? Benefits Advisor: ? Procedure Note Rainer Guardado - 07/03/[address] [address] XRay Report Signed Patient: Yoan Burk KMR#: [id number] : 1970Acct:[id number] Age/Sex: 54 / MADM Date: 07/03/24 Loc: HO.ED Attending Dr: Ordering Physician: Generic ED Physician Date of Service: 07/03/24 Procedure(s): XR shoulder RT min 2V Accession Number(s): [id number] cc: Nick Levy MD; Generic ED Physician [...] 07/03/24 1124 DD/ 1050 TD/TT: 07/03/24 1100 Benefits Advisor: [facility] External Provider IMG XR PROCEDURES Final Result documented in this encounter Visit Diagnoses Not on filedocumented in this encounter Additional Health Concerns Assessment Noted Time PHQ-9 Depression Total Score: 11 023 11:31 AM EST documented as of this encounter Care Teams Sales Floor Associate Relationship Specialty Start Date End Date Nick Levy MD [address] [place] [address] PCP - General Internal Medicine 08/06/19 documented as of this encounter
--- OUTSIDE RECORDS SUMMARY | 2024-07-03 14:45 | XMS_ITS | Encounter Summary ---
Author Organization [employer] Address [address] [place] [address] [place] [address] Care Team Providers Care Rock Loader Name Role Phone Nick Levy MD Primary Care Provider [phone]- [phone] Encounter Details Date Type Department Care Team ([facility] Contact Info) Description 01/01/2023 Orders Only [facility] MED & PEDS [address] [place] [address] Nick Levy MD [address] [place] [address] Low magnesium level (Primary Dx) Social History Tobacco Use Types Packs/Day Years Used Date Smoking Tobacco: Never Smokeless Tobacco: Never Alcohol Use Standard Drinks/Week Comments Not Currently 0 (1 standard drink = 0.6 oz pur e alcohol) oca Depression Answer Date Recorded Patient Health Questionnaire-9 Score 3 12/27/2022 Depression Answer Date Recorded Patient Health Questionnaire-2 Score 1 12/27/2022 Sex and Gender Information Value Date Recorded Sex Assigned at Male 04/09/2022 10:15 AM EDT Legal Sex Male 10:15 AM EDT Gender Identity Male 04/09/2022 10:15 AM EDT Sexual Orientation Straight 04/09/2022 10 :15 AM EDT documented as of this encounter Plan of Treatment Upcoming Encounters Date Type Department Care Team (Late Contact Info) Description 07/06/2024 9:30 AM EST Medication Management [facility] MED & PEDS [address] [place] [address] Marbella Thapa, PharmD [address] [place] [address] 07/15/2024 9:00 AM EST Office Visit [facility] CHC MED & PEDS [address] [place] [address] Nick Levy MD [address] [place], [place] [phone] documented as of this encounter Visit Diagnoses Diagnosis Low magnesium level- Primary documented in this encounter Additional Health Concerns Assessment Noted Time PHQ-9 Depression Total Score: 3 12/28/19 23 12:20 PM EDT documented as of this encounter Care Teams Rock Loader Relationship Specialty Start Date End Date Nick Levy MD [address] [place] [address] PCP - General Internal Medicine 08/06/19 documented as of this encounter
--- OUTSIDE RECORDS SUMMARY | 2024-07-03 14:45 | XMS_ITS | Clinical Summary ---
Author Organization [facility] Address [address] [place] [address] Care Team Providers Care Silviculture Teacher Name Role Phone Unavailable Primary Care Provider Unavailabl e Social History Tobacco Use Types Packs/Day Years Used Date Smoking Tobacco: Never Assessed Sex and Gender Information Value Date Recorded Sex Assigned at Not on file Gender Identity Not on file Sexual Orientation Not on file Plan of Treatment Health Maintenance Due Date Last Done Comments DTaP,Tdap,and Td Vaccines (1 - Tdap) 1988 Hepatitis B Vaccines (1 of 3 - 19+ 3-dose series) 1988 Zoster Vaccines (1 of 2) 2019 COVID-19 Vaccine (2023-2 5 season) 2024 Influenza Vaccine (#1) 2024 HIB Vaccines Aged Out No longer eligi [...] on patient's age to complete this topic MMR Vaccines Aged Out No longer eligi ble based on patient's age to complete this topic Meningococcal ACWY Vaccine Aged Out N o longer eligible based on patient's age to complete this topic Pneumococcal Vaccine: Pediat rics (0 to 5 Years) and At-Risk Patients (6 to 64 Years) Aged Out No longer eligible b ased on patient's age to complete this topic RSV Immunization Patients Un semaj 20 months Aged Out No longer eligible b ased on patient's age to complete this topic Varicella Vaccines Aged Out No longer eligible based on patient's age to complete this topic
== END 2024-07-03 13:47 | disposition home or self-care (01) ==
PROVIDERS: Emergency Provider Emergency Medicine; PCP Internal Medicine
DX: S43.111A Subluxation of right acromioclavicular joint, initial encounter (principal); M25.511 Pain in right shoulder; M79.601 Pain in right arm; M54.50 Low back pain, unspecified; M25.531 Pain in right wrist; W01.0XXA Fall on same level from slipping, tripping and stumbling without subsequent striking against object, initial encounter; Y93.89 Activity, other specified; Y92.89 Other specified places as the place of occurrence of the external cause; Y99.0 Civilian activity done for income or pay
CPT/HCPCS: 29105; 72100; 73030; 73070; 73100; 96372; 99284; J1885

== ENCOUNTER → 2024-07-03 11:00 | Outpatient (BNV) | payer OTHER, SELFPAY | PROVIDERS: PCP Internal Medicine; Visit Provider Radiology Diagnostic Radiology | DX: M54.9 Dorsalgia, unspecified (principal); M25.511 Pain in right shoulder; S59.901A Unspecified injury of right elbow, initial encounter; S69.91XA Unspecified injury of right wrist, hand and finger(s), initial encounter | CPT/HCPCS: 72100; 73030; 73070; 73100 ==

== ENCOUNTER 2024-07-21 10:00 | Outpatient (AMB) | payer OTHER, SELFPAY ==
[2024-07-21 10:03] VITALS: BMI 27.2
--- NOTE | 2024-07-21 10:03 | A.OFFVIS_ITS ---
Vital Signs 07/21/24 10:03 Height 5 ft 7 in Weight 174 lb BMI 27.2 Intake Visit Reasons: Right shoulder pain and weakness Intake Note: Yoan is a 54 year old right hand dominant male who presents today for evaluation of a right shoulder pain and weakness. The patient states that he fell onto his right shoulder while working on 07/02/2024. Denies any shoulder pain or weakness prior to that injury. Has tried [id number] exercises which seemed to aggravate his pain. He has also tried Tylenol and anti- inflammatory medicines which gave him minimal relief. Has not been able to return to work because of his pain and weakness. Allergies allopurinol [ALLOPURINOL] Allergy (Unknown, Verified 07/21/24 10:06) ANAPHYLAXIS, Throat Swelling, throat swelling lisinopril [LISINOPRIL] Allergy (Unknown, Verified 07/21/24 10:06) COUGH losartan Allergy (Unknown, Verified 07/21/24 10:06) diarrhea sulfamethoxazole [From Bactrim] Allergy (Verified 07/21/24 10:06) Unknown trimethoprim [From Bactrim] Allergy (Verified 07/21/24 10:06) Unknown From VICODIN Allergy (Unknown, Uncoded 07/21/24 10:06) ANAPHYLAXIS HYDROCODONE Allergy (Unknown, Uncoded 07/21/24 10:06) Shortness of Breath Hydrocodone-Acetaminophen Allergy (Unknown, Uncoded 07/21/24 10:06) shortness of breath Medication List - Last Reconciled 07/21/24 by Sb Comer MD albuterol sulfate 90 mcg/actuation inhalation atenolol 25 mg PO QAM beclomethasone dipropionate 40 mcg/actuation (Qvar RediHaler) inhalation blood sugar diagnostic (True Metrix Glucose Test Strip) As directed chlorthalidone 25 mg PO DAILY glipizide 10 mg PO BID loperamide mg PO meloxicam 15 mg PO DAILY metformin 1,000 mg PO BID semaglutide (Ozempic) mg subcut simvastatin 40 mg PO BEDTIME PFSH Medical History Diabetes Surgical History Hx of cholecystectomy Hx of appendectomy Social History Alcohol intake: former Patient Tobacco Use Status: Never used Tobacco 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, 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 Burk presents with right shoulder pain and weakness after falling at work possibly due to a rotator cuff tear. Thus, I will send the patient for an MRI of his right shoulder for further evaluation. I will see him back once the MRI is completed to discuss the findings and treatment options. I will keep him out of work until that time. Feel free to call me at any time should questions regarding his orthopedic management arise. I spent 20 minutes in reviewing the patient's records and imaging studies, seeing the patient and documenting in the medical record. Orders: Orders MR shoulder RT wo con Today M25.311 - Other instability, right shoulder Medications: New lorazepam (Ativan) Take one tab 2 hours before your right shoulder MRI; take the second tab 30 minutes before your MRI 1 mg PO ONCE PRN 2 tabs 0RF anxiety Coding Level of Care Code Est Pt Level 3 (31849) Complex EM visit Add On G2211 Diagnoses Rotator cuff insufficiency of right shoulder M25.311
--- OUTSIDE RECORDS SUMMARY | 2024-07-21 11:08 | XMS_ITS | Encounter Summary ---
Author Organization [employer] Address 75 [facility] 7 [place] [address] Care Team Providers Care Appraiser Name Role Phone Nick Levy MD Primary Care Provider [phone]- [phone] Marbella Thapa PharmD Unavailable [phone] Encounter Details Date Type Department Care Team (Late st Contact Info) Description 05/06/2023 Orders Only [facility] CHC MED & PEDS [address] [place], [place] [phone] Nick Levy MD [address] [place], [place] [phone] Type 2 diabetes mellitus with hyperglycemia, without long-term current use of insulin ([facility]) (Primary Dx) Social History Tobacco Use Types [...] Care Team (Late st Contact Info) Description 08/03/2024 9:30 AM EST Medication Management [facility] MED & PEDS [address] [place] [address] Marbella Thapa PharmD [address] [place] [address] documented as of this encounter Visit Diagnoses Diagnosis Type 2 diabetes mellitus with hyperglycemia, without long-term current use of insulin ([facility])- Primary documented in this encounter Additional Health Concerns Assessment Noted Time PHQ-9 Depression Total Score: 3 12/28/19 23 12:20 PM EDT documented as of this encounter Care Teams Appraiser Relationship Specialty Start Date End Date Nick Levy MD [address] [place], [place] [phone] PCP - General Internal Medicine 08/06/19 Marbella Thapa PharmD [address] [place] [address] Pharmacist Internal Medicine 07/06/24 documented as of this encounter
--- OUTSIDE RECORDS SUMMARY | 2024-07-21 11:08 | XMS_ITS | Encounter Summary ---
Author Organization [employer] Address [address] [place] [address] [address] [place] [address] Care Team Providers Care Senior Contract Specialist Name Role Phone Nick Levy MD Primary Care Provider [phone] Marbella Thapa PharmD Unavailable [phone] Reason for Referral * Imaging (Routine) - Closed Specialty Diagnoses / Procedures Referred By Ana palma Referred To Contact Radiology Diagnoses Transaminitis Procedures US Abdomen Complete Nick Levy MD [address] [place] [address] Phone: tel: fax: [address] Phone: tel: fax: Referral ID Status Reason Start Date Expiration Date Visits Re quested Visits Authorized [id number] Closed 05/27/2024 05/27/2025 1 1 Encounter Details Date Type Department Care Team (Late st Contact Info) Description 05/27/2024 Orders Only [facility] [address] [place], [place] [phone] Nick Levy MD [address] [place] [address] Transaminitis (Primary Dx) Social History Tobacco Use [...] Description 08/03/2024 9:30 AM EST Medication Management [facility] [address] [place] [address] Marbella Thapa, PharmD [address] [place] [address] documented as of this encounter Procedures Procedure Name Priority Date/Time Associated Diagnosis Comments US ABDOMEN COMPLETE Routine 06/19/2024 7 :48 AM EST Transaminitis documented in this encounter Results * US Abdomen Complete (06/19/2024 7:48 AM EST) Anatomical Region Laterality Modality Abdomen Ultrasound 06/19/2024 7:48 AM EST Narrative 06/19/2024 7:50 AM EST ? [facility] ?[address] ?[place] [address] ? Ultrasound Report ? Signed ? Patient: WmYoan K ?MR#: [id number] ?? [id number] ? : 1970 ?Acct:[id number] ? Age/Sex: 54 / M ?ADM Date: 06/17/24 ? Loc: HO.US ? Attending Dr: Nick Levy MD ? Ordering Physician: Nick Levy MD ?? Date of Service: 06/17/24 ?? Procedure(s): US abdomen complete ?? Accession Number(s): [id number] ? cc: Nick Levy MD ? CLINICAL [...] DD/ 0748 ? TD/TT: 06/19/24 0748 ? Maintenance Mechanic: ? Procedure Note Rainer Guardado - 06/19/[address] [address] Ultrasound Report Signed Patient: Yoan Burk KMR#: [id number] : 1970Acct:[id number] Age/Sex: 54 / MADM Date: 06/17/24 Loc: HO.US Attending Dr: Nick Levy MD Ordering Physician: Nick Levy MD Date of Service: 06/17/24 Procedure(s): US abdomen complete Accession Number(s): [id number] cc: Nick Levy MD CLINICAL HISTORY: Transaminitis [...] Schwartz MD in OV> 06/19/24 0749 DD/ TD/TT: 06/19/24747 Maintenance Mechanic: us Nick Levy MD IMG US PROCEDURES Final Res ult documented in this encounter Visit Diagnoses Diagnosis Transaminitis- Primary Nonspecific elevation of levels of transaminase or lactic acid dehydrogenase (LDH) documented in this encounter Additional Health Concerns Assessment Noted Time PHQ-9 Depression Total Score: 11 023 11:31 AM EST documented as of this encounter Care Teams Senior Contract Specialist Relationship Specialty Start Date End Date Nick Levy MD [address] [place] [address] PCP - General Internal Medicine 08/06/19 Marbella Thapa PharmD [address] [place] [address] Pharmacist Internal Medicine 07/06/24 documented as of this encounter
--- OUTSIDE RECORDS SUMMARY | 2024-07-21 11:08 | XMS_ITS | Encounter Summary ---
Author Organization [employer] Address [address] [facility] [address] [place] [address] Care Team Providers Care Museum Exhibit Designer Name Role Phone Nick Levy MD Primary Care Provider [phone] Marbella Thapa PharmD Unavailable [phone] Reason for Referral * Consultation (Urgent) - Closed Specialty Diagnoses / Procedures Referred By Ana palma Referred To Contact Orthopaedic Surgery Diagnoses Acute pain of right shoulder Lisset Caldwell NP [address] [place] [address] Phone: tel: fax: [facility] [address] [place] [address] Phone: tel: Referral ID Status Reason Start Date Expiration Date V isits Requested Visits Authorized [id number] Closed Specialty Services Required 07/13/2024 07/13/2025 1 1 * Imaging (Urgent) - Pending Review Specialty Diagnoses / Procedures Referred By Ana palma Referred To Contact Radiology Diagnoses Acute pain of right shoulder Procedures MR Shoulder w/o Contrast Right Lisset Caldwell NP [address] [place] [address] Phone: tel: fax: [facility] [address] [place] [address] Phone: tel: fax: Referral ID Status Reason Start Date Expiration Date V isits Requested Visits Authorized [id number] Pending Review 07/13/2024 07/13/2025 1 1 Reason for Visit * Reason Comments Arm Pain Encounter Details Date Type Department Care Team (Late st Contact Info) Description 07/13/2024 9:20 AM EST Office Visit [facility] [address] [place] [address] Lisset Caldwell NP [address] [place] [address] Acute pain of right shoulder (Primary Dx) Social History Tobacco Use Types [...] AM EDT documented as of this encounter Last Filed Vital Signs Vital Sign Reading Time Taken Comments Blood Pressure 145/89 07/13/2024 9:24 AM EST Pulse 99 07/13/2024 9:24 AM EST Temperature 36.7 ??C (98 ??F) 07/13/2024 9:24 AM EST Respiratory Rate 16 07/13/2024 9:24 AM EST Oxygen Saturation 97% 07/13/2024 9:24 AM EST Inhaled Oxygen Concentration - - Weight 79.8 kg (176 lb) 07/13/2024 9:24 AM EST Height - - Body Mass Index 27.57 05/27/2024 9:09 AM EST documented in this encounter Progress Notes * Lisset Caldwell, SUPERVISING ARCHITECT - 07/13/2024 9:20 AM EST Images from the original note were not included. Subjective: Yoan Burk is a 54 y.o. male who presents to the office for a sick visit. HPI Fell on ice 07/02/24 and legs went out in front of patient, right shoulder pain acute, went to ER for evaluation Patient is a 54 year old assigned male at with a history of DM presenting to the emergency department today with right shoulder and low back pain after a slip and fall. Patient's physical exam was as noted in the physical exam portion of this note. Patient's right wrist, right elbow, and lumbar x-rays showed no acute process. Patient's right shoulder x-ray showed minimal subluxation of the AC joint which may be a low-grade AC injury. Patient's clinical presentation is most consistent withAC separation. I explained my physical exam findings as well as all test results to the patient. I answered all questions asked by the patient. Patient's right shoulder x-ray was placed corrie sling, without incident. Patient's PMS was intact prior to and after sling placement. I stressed the importance of the patient taking his medication as directed (either prescribed or as the over the counter packaging recommends). I stressed the importance of the patient following up with his primary care provider, work connection, and an orthopedic provider. I stressed the importance of the patient returning to the emergency department immediately if his symptoms were to worsen or if he were to develop any dizziness, shortness of breath, difficulty breathing, chest pain, blurry vision, loss of vision, nausea, vomiting, abdominal pain, fever, chills, back pain, or any other complaints. Patient verbalized agreement and understanding with this treatment plan and discharge. Does not yet have orthopedic visit, Reports right hand numbness and cold temperature Workmans comp- 3 days off of work Patient Active Problem List Diagnosis Type 2 diabetes mellitus ([facility]) Methicillin resistant Staphylococcus aureus infection Chronic pain of left knee Hypertensive disorder Alcoholism ([facility]) Acute right-sided low back pain Left leg cellulitis Anxiety Severe episode of recurrent major depressive disorder, without psychotic features ([facility]) Stress-related problem 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 Smoking Status Never BSA 1.94 m?? Physical Exam Vitals reviewed. Constitutional: Appearance: Normal appearance. HENT: Head: Normocephalic. Cardiovascular: Rate and Rhythm: Normal rate. Heart sounds: Normal heart sounds. Pulmonary: Breath sounds: Normal breath sounds. Abdominal: Palpations: Abdomen is soft. Musculoskeletal: Right shoulder: Swelling, deformity and tenderness present. Decreased range of motion. Arms: Cervical back: Neck supple. Neurological: Mental Status: He is alert. Psychiatric: Mood and Affect: Mood normal. Assessment/Plan: Problem List Items Addressed This Visit Acute pain of right shoulder - Primary Current Assessment & Plan Concerning for rotator cuff pathology, MRI ordered, Stat referral to ortho- Continue with sling, arom as tolerated. Relevant Orders MR Shoulder w/o Contrast Right Referral to Orthopaedic Surgery Current Outpatient Medications Medication Sig Dispense Refill Acetaminophen Extra Strength 500 MG tablet Take 500 mg by mouth every 6 (six) hours if needed. albuterol 108 (90 Base) MCG/ACT inhaler Inhale 2 puffs every 6 (six) hours if needed for wheezing. 18 g 11 atenolol (Tenormin) 25 MG tablet TAKE 1 TABLET BY MOUTH EVERY MORNING 90 tablet 3 betamethasone valerate (Valisone) 0.1 % ointment Apply topically if needed in the morning and at bedtime (dryness). 45 g 2 Blood Glucose Monitoring Suppl (FreeStyle [place] Lite) w/Device kit TEST BLOOD SUGAR EVERY DAY Blood Glucose Monitoring Suppl (FreeStyle Lite) device Inject under the skin in the morning. Test daily before all meals/snacks and once before bedtime. 1 each 0 cetirizine (ZyrTEC) 10 MG tablet Take 1 tablet by mouth at bed time. chlorthalidone (Hygroton) 25 MG tablet TAKE 1 TABLET(25 MG) BY MOUTH IN THE MORNING 90 tablet 3 FREESTYLE LITE test strip TEST BLOOD SUGAR EVERY DAY 50 strip 5 glipiZIDE (Glucotrol) 10 MG tablet TAKE 1 TABLET(10 MG) BY MOUTH TWICE DAILY 180 tablet 3 loperamide (Imodium) 2 MG capsule TAKE ONE CAPSULE THREE TIMES DAILY NEEDED 30 capsule 0 meloxicam (Mobic) 15 MG tablet TAKE ONE TABLET BY MOUTH EVERY DAY. 30 tablet 5 metFORMIN (Glucophage) 500 MG tablet TAKE 2 TABLETS BY MOUTH EVERY MORNING AND EVERY EVENING WITH MEALS 360 tablet 3 Semaglutide,0.25 or 0.5MG/DOS, (Ozempic, 0.25 or 0.5 MG/DOSE,) 2 MG/3ML solution pen-injector Inject 0.5 mg under the skin 1 (one) time per week. 3 mL 2 simvastatin (Zocor) 40 MG tablet TAKE ONE TABLET BY MOUTH EVERY DAY 30 tablet 5 TRUEplus Lancets 33G misc TEST BLOOD SUGAR EVERY DAY No current facility-administered medications for this visit. documented in this encounter Miscellaneous Notes * Assessment & Plan Note - Lisset Caldwell NP - 07/13/2024 9:42 AM ESTAssociated Problem(s): Acute pain of right shoulder Concerning for rotator cuff pathology, MRI ordered, Stat referral to ortho- Continue with sling, arom as tolerated. documented in this encounter Plan of Treatment Upcoming Encounters Date Type Department Care Team (Late st Contact Info) Description 08/03/2024 9:30 AM EST Medication Management [facility] [address] [place] [address] Marbella Thapa PharmD [address] [place] [address] Scheduled Orders Name Type Priority Associated Diagnoses Orde r Schedule MR Shoulder w/o Contrast Right Imaging Urgent Acute pain of right shoulder Expected: 07/13/2024, Expires: 07/13/2025 Scheduled Referrals Name Type Priority Associated Diagnoses Order Schedule Referral to Orthopaedic Surgery Outpatient Referral Urgent Acute pain of right shoulder Expected: 07/13/2024 (Approximate), Expires: 07/13/2025 documented as of this encounter Visit Diagnoses Diagnosis Acute pain of right shoulder- Primary documented in this encounter Additional Health Concerns Assessment Noted Time PHQ-9 Depression Total Score: 11 023 11:31 AM EST documented as of this encounter Care Teams Museum Exhibit Designer Relationship Specialty Start Date End Date Nick Levy MD [address] [place] [address] PCP - General Internal Medicine 08/06/19 Marbella Thapa PharmD [address] [place] [address] Pharmacist Internal Medicine 07/06/24 documented as of this encounter
--- OUTSIDE RECORDS SUMMARY | 2024-07-21 11:08 | XMS_ITS | Encounter Summary ---
Author Organization [employer] Address [address] [facility] 7 [place] [address] Care Team Providers Care Biofuels Engineering Manager Name Role Phone Nick Levy MD Primary Care Provider [phone] Marbella Thapa PharmD Unavailable [phone] Encounter Details Date Type Department Care Team (Late st Contact Info) Description 05/27/2024 Telephone [facility] [address] [place] [address] Nick Levy MD [address] [place] [address] Social History Tobacco Use Types Packs/Day Years [...] is your housing situation today? I have stephenrobin valero 04/01/[address] you [...] line 05/27/24 at 2:39 PM Name of Caller/Facility:[facility] Wang [place] Callback number: [phone] Reason for Call: Glucose 387 Message to be forwarded to Nick Levy MD and team nurses for follow up. documented in this encounter Plan of Treatment Upcoming Encounters Date Type Department Care Team (Late st Contact Info) Description 08/03/2024 9:30 AM EST Medication Management [facility] MED [facility] P[facility] [address] [place] [address] Marbella Thapa, PharmD [address] [place], [place] [phone] documented as of this encounter Visit Diagnoses Not on filedocumented in this encounter Additional Health Concerns Assessment Noted Time PHQ-9 Depression Total Score: 11 023 11:31 AM EST documented as of this encounter Care Teams Biofuels Engineering Manager Relationship Specialty Start Date End Date Nick Levy MD [address] [place] [address] PCP - General Internal Medicine 08/06/19 Marbella Thapa PharmD [address] [place] [address] Pharmacist Internal Medicine 07/06/24 documented as of this encounter
--- OUTSIDE RECORDS SUMMARY | 2024-07-21 11:08 | XMS_ITS | Clinical Summary ---
Author Organization [employer] Address [address] [facility] [address] [place] [address] Care Team Providers Care Bus Person Dishwasher Name Role Phone Nick Levy MD Primary Care Provider [phone] Marbella Thapa PharmD Unavailable [phone] Allergies Active Allergy Reactions Criticality Noted Date [...] 22 Active Blood Glucose Monitoring Suppl (FreeStyle [place] Lite) w/Device kit TEST BLOOD SUGAR EVERY DAY 03/20/20 22 Active cetirizine (ZyrTEC) 10 MG tablet Take 1 tablet by mouth at bed time. 01/21/20 21 Active TRUEplus Lancets 33G misc TEST BLOOD SUGAR EVERY DAY 03/20/20 22 Active FREESTYLE LITE test strip TEST BLOOD SUGAR EVERY DAY 50 strip 5 05/01/20 23 Active Blood Glucose Monitoring Suppl (FreeStyle Lite) deviceIndicatio ns:Type 2 diabetes mellitus with hyperglycemia, without long-term current use of insulin ([facility]) Inject under the skin in the morning. Test daily before all meals/snacks and once before bedtime. 1 each 05/06/20 23 Active betamethasone valerate (Valisone) 0.1 % ointmentIndicat ions:Hypertroph ic scar of skin Apply topically if needed in the morning and at bedtime (dryness). 45 g 2 05/09/20 23 Active albuterol 108 (90 Base) MCG/ACT inhaler Inhale 2 puffs every 6 (six) hours if needed for wheezing. 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 30 tablet 5 06/12/19 25 Active Semaglutide,0.2 5 or 0.5MG/DOS, (Ozempic, 0.25 or 0.5 MG/DOSE,) 2 MG/3ML solution pen-injector Inject 0.5 mg under the skin 1 (one) time per week. 3 mL 2 07/06/19 25 Active chlorhexidine (Peridex) 0.12 % solution RINSE WITH 15ml BY MOUTH FOR 30 SECONDS THEN SPIT OUT TWICE DAILY AFTER MEALS 03/28/20 22 2024 Discontinued(M ed list cleanup (will not trigger notification to Pharmacy)) venlafaxine XR (Effexor XR) 37.5 MG 24 hr capsuleIndicati ons:Other depression Take 1 capsule (37.5 mg) by mouth in the morning. Do not crush or chew. 30 capsule 11 05/09/20 23 2024 Discontinued(M ed list cleanup (will not trigger notification to Pharmacy)) Mometasone Furoate (Asmanex HFA) 100 MCG/ACT aerosol Inhale 2 Inhalations 2 times daily. 13 g 2 07/22/19 24 2024 Discontinued(M ed list cleanup (will not trigger notification to Pharmacy)) Qvar RediHaler 40 MCG/ACT inhaler INHALE TWO PUFFS TWICE DAILY. RINSE MOUTH AFTER USE 07/22/19 24 2024 Discontinued(M ed list cleanup (will not trigger notification to Pharmacy)) semaglutide (Ozempic) 2 MG/1.5ML solution pen-injectorInd ications:Type 2 diabetes mellitus with hyperglycemia, without long-term current use of insulin ([facility]) Inject 0.25 mg under the skin 1 (one) time per week. 1 each 05/27/20 24 2024 Discontinued(D ose adjustment) Active Problems Problem Noted Date Diagnosed Date Mild depression 07/16/2024 Acute pain of right shoulder 07/13/2024 Assessment & Plan (07/13/2024 9:42 AM EST): Concerning for rotator cuff pathology, MRI ordered, Stat referral to ortho- Continue with sling, arom as tolerated. Mild nonproliferative diabet ic retinopathy of left [...] to change. PLAN: 1. Follow up with [facility]: Not recommended for follow-up 2. Patient goal [...] to change. PLAN: 1. Follow up with [facility]: Not recommended for follow-up 2. Patient goal [...] followup if not improved in 2-3 days Resolved Problems Problem Noted Date Diagnosed Date Resolved Date Severe episode of recurrent major depressive disorder, without psychotic features 05/14/202311/2024 Assessment & Plan (05/14/2023 12:39 PM EST): [...] to change. PLAN: 1. Follow up with [facility]: Not recommended for follow-up 2. Patient goal is to be connected with therapy services and be able to manage stress 3. Behavioral Recommendations a. Referral for OP individual therapy b. Follow PCP recommendations regarding meds. c. Utilize coping mechanisms provided into daily routine Encounters * This document contains information received from the source organization and may not represent a complete record from that organization. Date Type Department Care Team Description 07/15/2024 9:00 AM EST Office Visit [facility] [address] [place] [address] Nick Levy MD Type 2 diabetes mellitus with hyperglycemia, without long-term current use of insulin ([facility]) (Primary Dx); Anxiety; Primary hypertension 07/15/2024 Travel 07/13/2024 9:20 AM EST Office Visit [facility] [address] [place] [phone] Lisset Caldwell NP Acute pain of right shoulder (Primary Dx) 07/06/2024 Travel 07/03/2024 Orders Only [facility] External Provider, [facility] 06/19/2024 Telephone [facility] [address] [place] [address] Nick Levy MD 06/12/2024 Refill [facility] [address] [place] [phone] Nick Levy MD 05/28/2024 Telephone [facility] [address] [place] [address] Phyllis Cuba, RN Results 05/27/2024 9:00 AM EST Office Visit [facility] [address] [place] [address] Nick Levy MD Type 2 diabetes mellitus with hyperglycemia, without long-term current use of insulin (CMS/HCC) (Primary Dx); Primary hypertension; Encounter for immunization; Chronic toe pain, left foot; Primary osteoarthritis of right foot; Other chest pain; 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 ([facility]); Severe episode of recurrent major depressive disorder, without psychotic features ([facility]); Alcoholism ([facility]) 05/27/2024 Orders Only [facility] [address] [place] [address] Nick Levy MD Transaminitis (Primary Dx) 05/27/2024 Telephone [facility] [address] [place] [phone] Nick Levy MD 05/27/2024 Travel 05/01/2024 Refill [facility] [address] [place] [phone] Nick Levy MD Type 2 diabetes mellitus without complication, unspecified whether mcfp insulin use ([facility]) 04/27/2024 Telephone [facility] [address] [place] [address] Raza Gallegos DDS 04/23/2024 Refill [facility] [address] [place] [address] Nick Levy MD 04/22/2024 Refill [facility] [address] [place] [address] Nick Levy MD 04/21/2024 9:00 AM EST Office Visit [facility] [address] [place] [address] Mary Jo Daniel from Last 3 Months Immunizations Name Administration Dates Next Due Td (adult), 5 Lf tetanus tox oid, preservative free, adsorbed 11/15/2015 Tdap 05/27/2024 Family History Medical History Relation [...] Answer Date Recorded Patient Health Questionnaire-9 Score 5 07/16/2024 Patient Health Questionnaire-9 Score 5 07/16/2024 Last PHQ-9: Questionnaire Data Not on file 0 07/16/2024 Housing Stability Answer Date Recorded What is your housing situation today? I have stephen valero 07/15/[address] you li ve. Do you have problems with any of the following? None of the above 07/15/2024 Food Insecurity Answer Date Recorded Within the past 12 months, y ou worried that your food would run out before you got money to buy more: Never True 07/15/2024 Within the past 12 months,th e food you bought just didn't last and you didn't have enough money to get more: Never True 10/2024 Transportation Answer Date Recorded In the past 12 months, has l ack of transportation kept you from medical appts, meetings, work or from getting things needed for daily living? No 07/15/2024 Utilities Answer Date Recorded In the past 12 months, has t he electric, gas, oil or water company threatened to shut off services in your home? Yes 07/15/2024 Depression Answer Date Recorded Patient Health Questionnaire-2 Score 2 07/16/2024 Internet Access Answer Date Recorded Internet Access Q1 Yes 07/15/2024 Internet Access Q2 Not on file 07/15/2024 Sex and Gender Information Value Date Recorded Sex Assigned at Male 04/09/2022 10:15 AM EDT Legal Sex Male 10:15 AM EDT Gender Identity Male 04/09/2022 10:15 AM EDT Sexual Orientation Straight 04/09/2022 10 :15 AM EDT Last Filed Vital Signs Vital Sign Reading Time Taken Comments Blood Pressure 144/101 07/15/2024 9:12 AM EST Pulse 99 07/15/2024 9:12 AM EST Temperature 36.3 ??C (97.4 ??F) 07/15/2024 9:12 AM ES T Respiratory Rate 20 07/15/2024 9:12 AM EST Oxygen Saturation 97% 07/13/2024 9:24 AM EST Inhaled Oxygen Concentration - - Weight 77.1 kg (170 lb) 07/15/2024 9:12 AM EST Height 170.2 cm (5' 7 ) 07/15/2024 9:12 AM EST Body Mass Index 26.63 07/15/2024 9:12 AM EST Plan of Treatment Upcoming Encounters Date Type Department Care Team (Late st Contact Info) Description 08/03/2024 9:30 AM EST Medication Management [facility] [address] [place] [address] Marbella Thapa, PharmD [address] [place] [address] Health Maintenance Due Date Last Done Comments CT Colonography 1970 Colonoscopy 1969 Colorectal Cancer Screening 1969 Dental Oral Exam 1969 Dental Prophylaxis 1969 Dental X-Ray: Full Mouth 1969 FIT DNA/Cologuard 1969 FIT 1969 FOBT 1969 HIV Screening 1969 Sigmoidoscopy 1969 Pneumococcal Vaccine: 50+ Years (1 of 2 - PCV) 1988 Zoster Vaccines (1 of 2) 2019 Diabetes: Urine Protein Screening 01/01/2024 12/31/2022, 08/07/2019 Eye Exam 05/23/2024 05/23/2023, 05/10, 05/23/2023, Additional history exists Diabetes: Hemoglobin A1C 08/25/2024 024, 05/09/2023, 12/27/2022, Additional history exists Influenza Vaccine (#1) 2024 Postp oned from 02/09/2024 (Patient Refused) Dental X-Ray: Bitewings 04/22/2025 04/21/2024, 08/05 COVID-19 Vaccine ( season) 2025 Postponed from 02/09/2024 (Patient Refused) Diabetes: Foot Exam 05/27/2025 05/27/2024, 05/09/2023, 05/09/2023, Additional history exists Lipid Panel 05/27/2025 05/27/2024 Alcohol/Substance Use Screening 07/15/2025 07/15/2024 SDOH Screening 07/15/2025 07/15/2024 Tobacco Screening 07/15/2025 07/15/2024 Depression Screening 07/16/2025 07/16/2024, 07/16/19 25 DTaP/Tdap/Td Vaccines (2 - Td or Tdap) [...] patient's age to complete this topic Hepatitis B Vaccines Discontinued IPV Vaccines Aged Out No longer eligi [...] Procedure Name Priority Date/Time Associated Diagnosis Comments POCT GLUCOSE Routine 07/15/2024 10:05 AM EST Type 2 diabetes mellitus with hyperglycemia, without long-term current use of insulin ([facility]) XR WRIST 1-2 VIEWS RIGHT Routine 07/03/2024 [...] hyperglycemia, without long-term current use of insulin ([facility]) Primary hypertension LIPID PANEL, STANDARD Routine 05/27/2024 [...] hyperglycemia, without long-term current use of insulin ([facility]) 15 LIMITED ORAL EVALUATION - PROBLEM FOCUSED [...] Recently Relevant to Health Maintenance Results * (ABNORMAL) POCT Glucose (07/15/2024 10:05 AM EST) Only the most recent of2 resultswithin the time period is included. Glucose Blood, POC 329(A) 60 - 200 mg/dL QC Media Lot # [id number] Comment:random Lot# Expiration Date [id number] Blood Capillary blood specimen / Unknown 07/15/2024 10:05 AM EST us Nick Levy MD POINT OF CARE TEST ENTER/ED IT ORDERABLES Final Result * XR Wrist 1-2 Views Right (07/03/2024 11:00 AM EST) Anatomical Region Laterality Modality Upper Extremities, Wrist Right Radiogr aphic Imaging 07/03/2024 11:0 0 AM EST Narrative 07/03/2024 11:23 AM EST ? [facility] ?[address] ?[place] [address] ?XRay Report ? Signed ? Patient: Yoan Burk ?MR#: [id number] ?? [id number] ? : 1970 ?Acct:[id number] ? Age/Sex: 54 / M ?ADM Date: 07/03/24 ? Loc: HO.ED ? Attending Dr: ? Ordering Physician: Generic ED Physician ?? Date of Service: 07/03/24 ?? Procedure(s): XR wrist RT 2V ?? Accession Number(s): [id number] ? cc: Nick Levy MD; Generic ED [...] DD/ 1100 ? TD/TT: 07/03/24 1100 ? Assistant Professor Of Surgery: ? Procedure Note Donananyater, Image - 07/03/[address] [address] XRay Report Signed Patient: Yoan Burk KMR#: [id number] : 1970Acct:[id number] Age/Sex: 54 / MADM Date: 07/03/24 Loc: HO.ED Attending Dr: Ordering Physician: Generic ED Physician Date of Service: 07/03/24 Procedure(s): XR wrist RT 2V Accession Number(s): [id number] cc: Nick Levy MD; Generic ED Physician [...] 07/03/24 1121 DD/ 1100 TD/TT: 07/03/24 1100 Assistant Professor Of Surgery: [facility] External Provider IMG XR PROCEDURES Final Result * XR Elbow 1-2 Views Right (07/03/2024 11:00 AM EST) Anatomical Region Laterality Modality Upper Extremities, Elbow Right Radiogr aphic Imaging 07/03/2024 11:0 0 AM EST Narrative 07/03/2024 11:22 AM EST ? [facility] ?[address] ?[place] [address] ?XRay Report ? Signed ? Patient: Wm,Yoan K ?MR#: [id number] ?? [id number] ? : 1970 ?Acct:[id number] ? Age/Sex: 54 / M ?ADM Date: 07/03/24 ? Loc: HO.ED ? Attending Dr: ? Ordering Physician: Generic ED Physician ?? Date of Service: 07/03/24 ?? Procedure(s): XR elbow RT 2V ?? Accession Number(s): [id number] ? cc: Nick Levy MD; Generic ED [...] DD/ 1100 ? TD/TT: 07/03/24 1100 ? Assistant Professor Of Surgery: ? Procedure Note Rainer Guardado - 07/03/[address] [address] XRay Report Signed Patient: Yoan Burk KMR#: [id number] : 1970Acct:[id number] Age/Sex: 54 / MADM Date: 07/03/24 Loc: HO.ED Attending Dr: Ordering Physician: Generic ED Physician Date of Service: 07/03/24 Procedure(s): XR elbow RT 2V Accession Number(s): [id number] cc: Nick Levy MD; Generic ED Physician [...] 07/03/24 1119 DD/ 1100 TD/TT: 07/03/24 1100 Assistant Professor Of Surgery: [facility] External Provider IMG XR PROCEDURES Final Result * XR Shoulder 2+ Views Right (07/03/2024 10:50 AM EST) Anatomical Region Laterality Modality Upper Extremities, Shoulder Right Radi ographic Imaging 07/03/2024 10:5 0 AM EST Narrative 07/03/2024 11:26 AM EST ? [facility] ?[address] ?[place] [address] ?XRay Report ? Signed ? Patient: Yoan Burk ?MR#: [id number] ?? [id number] ? : 1970 ?Acct:[id number] ? Age/Sex: 54 / M ?ADM Date: 07/03/24 ? Loc: HO.ED ? Attending Dr: ? Ordering Physician: Generic ED Physician ?? Date of Service: 07/03/24 ?? Procedure(s): XR shoulder RT min 2V ?? Accession Number(s): [id number] ? cc: Nick Levy MD; Generic ED [...] DD/ 1050 ? TD/TT: 07/03/24 1100 ? Assistant Professor Of Surgery: ? Procedure Note Donananyater, Image - 07/03/2024 [place] [address] XRay Report Signed Patient: Yoan Burk KMR#: [id number] : 1970Acct:[id number] Age/Sex: 54 / MADM Date: 07/03/24 Loc: HO.ED Attending Dr: Ordering Physician: Generic ED Physician Date of Service: 07/03/24 Procedure(s): XR shoulder RT min 2V Accession Number(s): [id number] cc: Nick Levy MD; Generic ED Physician [...] 07/03/24 1124 DD/ 1050 TD/TT: 07/03/24 1100 Assistant Professor Of Surgery: [facility] External Provider IMG XR PROCEDURES Final Result * XR Lumbar Spine 2-3 Views (07/03/2024 10:50 AM EST) Anatomical Region Laterality Modality Spine, L-spine Radiographic Kyara ging 07/03/2024 10:5 0 AM EST Narrative 07/03/2024 11:29 AM EST ? [facility] ?[address] ?[place] [address] ?XRay Report ? Signed ? Patient: Yoan Burk ?MR#: [id number] ?? [id number] ? : 1970 ?Acct:[id number] ? Age/Sex: 54 / M ?ADM Date: 07/03/24 ? Loc: HO.ED ? Attending Dr: ? Ordering Physician: Generic ED Physician ?? Date of Service: 07/03/24 ?? Procedure(s): XR lumbar spine 2-3V ?? Accession Number(s): [id number] ? cc: Nick Levy MD; Generic ED [...] MD ? Signed By: ?<Electronically signed by Weslye Shaffer MD in OV> ?07/03/24 1126 ? DD/ 1050 ? TD/TT: 07/03/24 1100 ? Assistant Professor Of Surgery: ? Procedure Note Donotlindsayinterpreter, Image - 07/03/2024 [place] [address] XRay Report Signed Patient: Yoan Burk KMR#: [id number] : 1970Acct:[id number] Age/Sex: 54 / MADM Date: 07/03/24 Loc: HO.ED Attending Dr: Ordering Physician: Generic ED Physician Date of Service: 07/03/24 Procedure(s): XR lumbar spine 2-3V Accession Number(s): [id number] cc: Nick Levy MD; Generic ED Physician [...] 07/03/24 1126 DD/ 1050 TD/TT: 07/03/24 1100 Assistant Professor Of Surgery: [facility] External Provider IMG XR PROCEDURES Final Result * US Abdomen Complete (06/19/2024 7:48 AM EST) Anatomical Region Laterality Modality Abdomen Ultrasound 06/19/2024 7:48 AM EST Narrative 06/19/2024 7:50 AM EST ? [facility] ?[address] ?[place] [address] ? Ultrasound Report ? Signed ? Patient: Yoan Burk ?MR#: [id number] ?? [id number] ? : 1970 ?Acct:[id number] ? Age/Sex: 54 / M ?ADM Date: 06/17/24 ? Loc: HO.US ? Attending Dr: Nick Levy MD ? Ordering Physician: Nick Levy MD ?? Date of Service: 06/17/24 ?? Procedure(s): US abdomen complete ?? Accession Number(s): [id number] ? cc: Nick Levy MD ? CLINICAL [...] DD/ 0748 ? TD/TT: 06/19/24 0748 ? Assistant Professor Of Surgery: ? Procedure Note Donotuseinterpreter, Image - 06/19/[address] [address] Ultrasound Report Signed Patient: Yoan Burk KMR#: [id number] : 1970Acct:[id number] Age/Sex: 54 / MADM Date: 06/17/24 Loc: HO.US Attending Dr: Nick Levy MD Ordering Physician: Nick Levy MD Date of Service: 06/17/24 Procedure(s): US abdomen complete Accession Number(s): [id number] cc: Nick Levy MD CLINICAL HISTORY: Transaminitis [...] 06/19/24 0749 DD/ 0748 TD/TT: 06/19/24 0748 Assistant Professor Of Surgery: us Nick Levy MD IMG US PROCEDURES Final Res ult * ECG 12 lead (05/27/2024 11:54 AM EST) Narrative Nick Levy MD - 05/27/2024 11:54 AM EST Sinus rhythm. HR: 79. Point Clear: 67 degrees. No sign of LAE, CRUZ. No sign of hypertrophy. No ST elevation or depression. Normal EKG> us Nick Levy MD ECG ORDERABLES Final Resul t * TSH W/Reflex to FT4 (05/27/2024 10:31 AM EST) TSH reflex Free T4 2.46 0.32 - 4.0 uIU/mL [facility] Blood Venous blood specimen / Unknown 05/27/2024 10:31 AM EST 05/27/2024 2:06 PM EST us Nick Levy MD LAB BLOOD ORDERABLES Final Result [facility] [address] [place] [phone] * CBC auto differential (05/27/2024 10:31 AM EST) White Blood Count 7.4 4.8 - 10.8 X10*3/uL [facility] Red Blood Count 5.50 4.60 - 5.80 X10*6/uL [facility] Hemoglobin 15.1 14.0 - 18.0 g/dl [facility] Hematocrit 45.0 42.0 - 52.0 % [facility] Mean Corpuscular Volume 81.8 80.0 - 98.0 fL [facility] Mean Corpuscular Hemoglobin 27.5 27.0 - 33.0 pg [facility] Mean Corpuscular HGB Conc 33.6 31.0 - 36.0 g/dl [facility] Red Cell Distribution Width 12.5 11.0 - 16.0 % [facility] Platelet Count 238 160 - 400 X10*3/uL [facility] Mean Platelet Volume 11.7 9.4 - 12.4 fL [facility] Neutrophils Percent Auto 67.1 45 - 73 % [facility] Imm Gran Pct Auto 0.3 0.0 - 0.4 % [facility] Lymphocytes Percent Auto 23.2 20 - 40 % [facility] Monocytes Percent Auto 7.3 2 - 11 % [facility] Eosinophils Percent Auto 1.6 0 - 4 % [facility] Basophils Percent Auto 0.5 0 - 2 % [facility] NRBC Pct Auto 0.0 0.0 - 0.2 /100WBC [facility] Neutrophils Absolute Auto 5.0 2.0 - 8.3 x10*3/uL [facility] Imm Gran Abs Auto 0.02 0.00 - 0.03 X10*3/uL [facility] Lymphocytes Absolute Auto 1.7 1.2 - 4.9 X10*3/uL [facility] Monocytes Absolute Auto 0.5 0.1 - 1.2 X10*3/uL [facility] Eosinophils Absolute Auto 0.1 0.0 - 0.4 X10*3/uL [facility] Basophils Absolute Auto 0.0 0.0 - 0.2 X10*3/uL [facility] NRBC Abs Auto 0.000 0.0 - 0.012 X10*3/uL [facility] Blood Venous blood specimen / Unknown 05/27/2024 10:31 AM EST 05/27/2024 2:06 PM EST us Nick Levy MD LAB BLOOD ORDERABLES Final Result Performing Organization Address [facility]/ZIP Co de Phone Number [facility] [address] [place] [phone] * Hepatitis C Antibody with Reflex to HCV, RNA, Quantitative, Real-Time PCR (05/27/2024 10:31 AM EST) Hepatitis C Antibody Nonreactive Nonreactive [facility] Comment:Antibodies to HCV no t detected; does not exclude early acuteHCV infection. Blood Venous blood specimen / Unknown 05/27/2024 10:31 AM EST 05/27/2024 2:06 PM EST Nick Levy MD LAB BLOOD ORDERABLES Final Result Performing Organization Address [facility]/ZIP Co de Phone Number [facility] [address] [place] [phone] * Hepatitis B Surface Antibody, Qualitative (05/27/2024 10:31 AM EST) ~Hepatitis B Surface Antibody REACTIVE Nonreactive [facility] Comment:REACTIVE: > 11.99 mI U/mL Blood Venous blood specimen / Unknown 05/27/2024 10:31 AM EST 05/27/2024 2:06 PM EST us Nick Levy MD LAB BLOOD ORDERABLES Final Result Performing Organization Address City/[facility]/ZIP Co de Phone Number [facility] [address] [place] [phone] * (ABNORMAL) Lipid Panel, Standard (05/27/2024 10:31 AM EST) Triglycerides 133 <150 mg/dL [facility] Comment:Desirable Triglyceri de: less than 150 mg/dLBorderline High Triglyceride 150-199 mg/dLHigh Triglyceride: 200-499 mg/dLVery High Triglyceride: greater than or equal to 5OO mg/dL Cholesterol 110 <200 mg/dL [facility] Comment:Desirable Cholestero l: less than 200 mg/dLBorderline High Cholesterol: 200-239 mg/dLHigh Cholesterol: greater than 239 mg/dL LDL Cholesterol Calculated 52 <100 mg/dL [facility] Comment:Desirable LDL: less than 100 mg/dLNear Optimal/Above Optimal LDL: 110- 129 mg/dLBorderline High LDL: 130-159 mg/dLHigh LDL: 160-189 mg/dLVery High LDL: greater than or equal to 190 mg/dL HDL Cholesterol 32(L) >40 mg/dL [facility] Comment:Desirable HDL: great er than 40 mg/dL Note: This HDL assay may give artificially low results in patients with liver disease. Blood Venous blood specimen / Unknown 05/27/2024 10:31 AM EST 05/27/2024 2:06 PM EST us Nick Levy MD LAB BLOOD ORDERABLES Final Result [facility] [address] [place] [address] [phone] * (ABNORMAL) Comprehensive Metabolic Panel (05/27/2024 10:31 AM EST) Sodium 136 135 - 145 mmol/L [facility] Potassium 4.0 3.3 - 5.1 mmol/L [facility] Chloride 101 96 - 108 mmol/L [facility] Carbon Dioxide 30(H) 22 - 29 mmol/L [facility] Anion Gap 9(L) 12 - 20 [facility] Urea Nitrogen (BUN) 18(H) 9 - 16 mg/dL [facility] Creatinine, Serum 1.00 0.5 - 1.4 mg/dL [facility] Estimated Glomerular Filt Rate >60 [facility] Comment:Chronic Kidney Disea se: Estimated GFR < 60 mL/min/[id number] Kidney Disease: Estimated GFR < 15 mL/min/1.73m2 Glucose 387(HH) 60 - 115 mg/dL [facility] Comment:Critical value for G NOELLE: Results called to and read backby: BUZZ Camacho Person calling: DORI Date:05/27/24 Time:1439 Calcium 8.8 8.4 - 10.2 mg/dL [facility] Bilirubin, Total 1.4(H) 0.0 - 1.0 mg/dL [facility] Aspartate Amino Transferase 34 5 - 37 U/L [facility] Alanine Aminotransferase 46(H) 0 - 40 U/L [facility] Total Protein 7.6 6.5 - 8.0 g/dL [facility] Albumin Level 4.3 3.5 - 5.0 g/dL [facility] Alkaline Phosphatase 62 39 - 117 U/L [facility] Blood Venous blood specimen / Unknown 05/27/2024 10:31 AM EST 05/27/2024 2:06 PM EST us Nick Levy MD LAB BLOOD ORDERABLES Final Result [facility] [address] [place] [address] [phone] * (ABNORMAL) POCT HGB A1C (05/27/2024 9:31 AM EST) Hemoglobin A1C 11.3(A) 4.0 - 6.0 % QC Media Lot # [id number] Lot# Expiration Date [id number] Blood 05/27/2024 9:31 AM EST us Nick Levy MD POINT OF CARE TEST ENTER/ED IT ORDERABLES Final Result * Albumin, Random Urine W/Creatinine (12/31/2022 10:19 AM EDT) Creatinine, Urine 198.54 mg/dL [facility] Microalbumin Urine 15.0 mg/L [facility] Microalbum Creatinine Ratio Ur 7.5 ug/mg cr [facility] Comment:Albumin/Creatinine R atio Reference Ranges: Normal: < 30 ug/mg creatinine Microalbuminuria: 30 - 300 ug/mg creatinineClinical Albuminuria: > 300 ug/mg creatinine 12/31/2022 10:1 9 AM EDT 12/31/2022 2:13 PM EDT us Nick Levy MD LAB URINE ORDERABLES Final Result Performing Organization Address City/[facility]/ZIP Co de Phone Number [facility] [address] [place] [address] [phone] from Last 3 Months or Most Recently Relevant to Health Maintenance Insurance [facility] - HSN FULL (MEDICAID) [employer] Care Teams Bus Person Dishwasher Relationship Specialty Start Date End Date Nick Levy MD [address] [place] [address] PCP - General Internal Medicine 08/06/19 Marbella Thapa, AbhayD [address] [place] [phone] Pharmacist Internal Medicine 07/06/24
--- OUTSIDE RECORDS SUMMARY | 2024-07-21 11:08 | XMS_ITS | Encounter Summary ---
Author Organization [employer] Address [address] [facility] 7 [place] [address] Care Team Providers Care Crocheter Hand Name Role Phone Nick Levy MD Primary Care Provider [phone] Marbella Thapa PharmD Unavailable [phone] Reason for Visit * Reason Onset Date Comments Med Refill 04/22/2024 Encounter Details Date Type Department Care Team ([facility] st Contact Info) Description 04/22/2024 Refill [facility] CHC MED & PEDS [address] [place] [address] Nick Levy MD [address] [place] [address] Social History Tobacco Use Types Packs/Day Years [...] Description 08/03/2024 9:30 AM EST Medication Management [facility] MED & PEDS [address] [place] [address] Marbella Thapa, PharmD [address] [place] [address] documented as of this encounter Visit Diagnoses Not on filedocumented in this encounter Additional Health Concerns Assessment Noted Time PHQ-9 Depression Total Score: 11 023 11:31 AM EST documented as of this encounter Care Teams Crocheter Hand Relationship Specialty Start Date End Date Nick Levy MD [address] [place] [address] PCP - General Internal Medicine 08/06/19 Marbella Thapa, AbhayD [address] [place] [address] Pharmacist Internal Medicine 07/06/24 documented as of this encounter
--- OUTSIDE RECORDS SUMMARY | 2024-07-21 11:08 | XMS_ITS | Encounter Summary ---
Author Organization [employer] Address [address] [place] [address] 7 [place] [address] Care Team Providers Care Starch Dumper Name Role Phone Nick Levy MD Primary Care Provider Marbella Thapa PharmD Unavailable [phone] Encounter Details Date Type Department Care Team (Late Contact Info) Description 01/01/2023 Orders Only [facility] CHC MED & PEDS [address] [place] [address] Nick Levy MD [address] [place], [place] [phone] Low magnesium level (Primary Dx) Social History [...] Department Care Team (Late Contact Info) Description 08/03/2024 9:30 AM EST Medication Management [facility] MED & PEDS [address] [place] [address] Marbella Thapa PharmD [address] [place] [address] documented as of this encounter Visit Diagnoses Diagnosis Low magnesium level- Primary documented in this encounter Additional Health Concerns Assessment Noted Time PHQ-9 Depression Total Score: 3 12/28/19 23 12:20 PM EDT documented as of this encounter Care Teams Starch Dumper Relationship Specialty Start Date End Date Nick Levy MD [address] [place] [address] PCP - General Internal Medicine 08/06/19 Marbella Thapa PharmD [address] [place] [address] Pharmacist Internal Medicine 07/06/24 documented as of this encounter
--- OUTSIDE RECORDS SUMMARY | 2024-07-21 11:08 | XMS_ITS | Encounter Summary ---
Author Organization [employer] Address [address] [facility] 7t [place] [address] Care Team Providers Care Mold Release Worker Name Role Phone Nick Levy MD Primary Care Provider [phone] Marbella Thapa PharmD Unavailable [phone] Encounter Details Date Type Department Care Team (Latest Contact Info) Description 07/06/2024 Travel Social History Tobacco Use Types Packs/Day Years [...] Description 08/03/2024 9:30 AM EST Medication Management [facility] MED & PEDS [address] [place] [address] Marbella Thapa PharmD [address] [place] [address] documented as of this encounter Visit Diagnoses Not on filedocumented in this encounter Additional Health Concerns Assessment Noted Time PHQ-9 Depression Total Score: 11 023 11:31 AM EST documented as of this encounter Care Teams Mold Release Worker Relationship Specialty Start Date End Date Nick Levy MD [address] [place] [address] PCP - General Internal Medicine 08/06/19 Marbella Thapa PharmD [address] [place] [address] Pharmacist Internal Medicine 07/06/24 documented as of this encounter
--- OUTSIDE RECORDS SUMMARY | 2024-07-21 11:08 | XMS_ITS | Encounter Summary ---
Author Organization [employer] Address [address] [facility] 7 [place] [address] Care Team Providers Care Psychologist Engineering Name Role Phone Nick Levy MD Primary Care Provider [phone] Marbella Thapa PharmD Unavailable [phone] Reason for Visit * Reason Comments Med Refill Encounter Details Date Type Department Care Team (Late st Contact Info) Description 11/04/2022 Refill [facility] MEDICINE [address] [place], [place] [phone] Keena Martinez MD [address] [place], [place] [phone] Acute right-sided low back pain, unspecified whether [...] Description 08/03/2024 9:30 AM EST Medication Management [facility] MED & PEDS [address] [place] [address] Marbella Thapa PharmD [address] [place] [address] documented as of this encounter Visit Diagnoses Diagnosis Acute right-sided low back pain, unspecified whether sciatica present documented in this encounter Care Teams Psychologist Engineering Relationship Specialty Start Date End Date Nick Levy MD [address] [place] [address] PCP - General Internal Medicine 08/06/19 Marbella Thapa PharmD [address] [place] [address] Pharmacist Internal Medicine 07/06/24 documented as of this encounter
--- OUTSIDE RECORDS SUMMARY | 2024-07-21 11:09 | XMS_ITS | Encounter Summary ---
Author Organization [employer] Address [address] [facility] [address] 7[address] [place] [address] Care Team Providers Care Ocular Care Technologist Name Role Phone Nick Levy MD Primary Care Provider [phone] Encounter Details Date Type Department Care Team (Late st Contact Info) Description 07/03/2024 Orders Only [facility] External Provider, [facility] Social History Tobacco Use Types Packs/Day [...] Description 08/03/2024 9:30 AM EST Medication Management [facility] CHC MED & PEDS [address] [place] [address] Marbella Thapa, PharmD [address] [place] [address] documented as of this encounter Procedures Procedure [...] EST Narrative 07/03/2024 11:23 AM EST ? [facility] ?[address] ?[place] [address] ?XRay Report ? Signed ? Patient: Cataño,Yoan K ?MR#: [id number] ?? [id number] ? : 1970 ?Acct:[id number] ? Age/Sex: 54 / M ?ADM Date: 01/24/25 ? Loc: HO.ED ? Attending Dr: ? Ordering Physician: Generic ED Physician ?? Date of Service: 07/03/24 ?? Procedure(s): XR wrist RT 2V ?? Accession Number(s): [id number] ? cc: Nick Levy MD; Generic ED [...] DD/ 1100 ? TD/TT: 07/03/24 1100 ? Cable Splicer Apprentice: ? Procedure Note Rainer Guardado - 07/03/2024 [place] [address] XRay Report Signed Patient: Yoan Burk KMR#: [id number] : 1970Acct:[id number] Age/Sex: 54 / MADM Date: 07/03/24 Loc: HO.ED Attending Dr: Ordering Physician: Generic ED Physician Date of Service: 07/03/24 Procedure(s): XR wrist RT 2V Accession Number(s): [id number] cc: Nick Levy MD; Generic ED Physician [...] Wesley Shaffer MD 07/03/2024 11:21 AM EST RP Dictated By: Wesley Shaffer MD Signed By: <Electronically signed by Wesley Shaffer MD in OV> 07/03/24 1121 DD/ 1100 TD/TT: 07/03/24 1100 Cable Splicer Apprentice: [facility] External Provider IMG XR PROCEDURES Final Result * XR Elbow 1-2 Views Right (07/03/2024 11:00 AM EST) Anatomical Region Laterality Modality Upper Extremities, Elbow Right Radiogr aphic Imaging 07/03/2024 11:0 0 AM EST Narrative 07/03/2024 11:22 AM EST ? [facility] ?[address] ?[place] [address] ?XRay Report ? Signed ? Patient: Yoan Burk ?MR#: [id number] ?? [id number] ? : 1970 ?Acct:[id number] ? Age/Sex: 54 / M ?ADM Date: 07/03/24 ? Loc: HO.ED ? Attending Dr: ? Ordering Physician: Generic ED Physician ?? Date of Service: 07/03/24 ?? Procedure(s): XR elbow RT 2V ?? Accession Number(s): [id number] ? cc: Nick Levy MD; Generic ED [...] DD/ 1100 ? TD/TT: 07/03/24 1100 ? Cable Splicer Apprentice: ? Procedure Note Donotlindsayinterpreter, Image - 07/03/[address] [address] XRay Report Signed Patient: Yoan Burk KMR#: [id number] : 1970Acct:[id number] Age/Sex: 54 / MADM Date: 07/03/24 Loc: HO.ED Attending Dr: Ordering Physician: Generic ED Physician Date of Service: 07/03/24 Procedure(s): XR elbow RT 2V Accession Number(s): [id number] cc: Nick Levy MD; Generic ED Physician [...] Shaffer MD Signed By: <Electronically signed by Weslye Shaffer MD in OV> 07/03/24 1119 DD/ 1100 TD/TT: 07/03/24 1100 Cable Splicer Apprentice: us [facility] External Provider IMG XR PROCEDURES Final Result * XR Lumbar Spine 2-3 Views (07/03/2024 10:50 AM EST) Anatomical Region Laterality Modality Spine, L-spine Radiographic Kyara ging 07/03/2024 10:5 0 AM EST Narrative 07/03/2024 11:29 AM EST ? [place] [facility] ?[address] ?[place] [address] ?XRay Report ? Signed ? Patient: Cataño,Yoan K ?MR#: [id number] ?? [id number] ? : 1970 ?Acct:[id number] ? Age/Sex: 54 / M ?ADM Date: 07/03/24 ? Loc: HO.ED ? Attending Dr: ? Ordering Physician: Generic ED Physician ?? Date of Service: 07/03/24 ?? Procedure(s): XR lumbar spine 2-3V ?? Accession Number(s): [id number] ? cc: Nick Levy MD; Generic ED [...] ??07/03/2024 11:26 AM EST RP ?? Workstation: [id number] ? Dictated By: ?Wesley Shaffer MD ? Signed By: ?<Electronically signed by Wesley Shaffer MD in OV> ?07/03/24 1126 ? DD/ 1050 ? TD/TT: 07/03/24 1100 ? Cable Splicer Apprentice: ? Procedure Note Rainer Guardado - 07/03/[address] [address] XRay Report Signed Patient: Yoan Burk KMR#: [id number] : 1970Acct:[id number] Age/Sex: 54 / MADM Date: 07/03/24 Loc: HO.ED Attending Dr: Ordering Physician: Generic ED Physician Date of Service: 07/03/24 Procedure(s): XR lumbar spine 2-3V Accession Number(s): [id number] cc: Nick Levy MD; Generic ED Physician [...] 07/03/24 1126 DD/ 1050 TD/TT: 07/03/24 1100 Cable Splicer Apprentice: [facility] External Provider IMG XR PROCEDURES Final Result * XR Shoulder 2+ Views Right (07/03/2024 10:50 AM EST) Anatomical Region Laterality Modality Upper Extremities, Shoulder Right Radi ographic Imaging 07/03/2024 10:5 0 AM EST Narrative 07/03/2024 11:26 AM EST ? [facility] ?[address] ?[place] [address] ?XRay Report ? Signed ? Patient: Wm,Yoan K ?MR#: [id number] ?? [id number] ? : 1970 ?Acct:[id number] ? Age/Sex: 54 / M ?ADM Date: 01/24/25 ? Loc: HO.ED ? Attending Dr: ? Ordering Physician: Generic ED Physician ?? Date of Service: 07/03/24 ?? Procedure(s): XR shoulder RT min 2V ?? Accession Number(s): [id number] ? cc: Nick Levy MD; Generic ED [...] DD/ 1050 ? TD/TT: 07/03/24 1100 ? Cable Splicer Apprentice: ? Procedure Note Rainer Guardado - 07/03/[address] [address] XRay Report Signed Patient: Yoan Burk KMR#: [id number] : 1970Acct:[id number] Age/Sex: 54 / MADM Date: 07/03/24 Loc: HO.ED Attending Dr: Ordering Physician: Generic ED Physician Date of Service: 07/03/24 Procedure(s): XR shoulder RT min 2V Accession Number(s): [id number] cc: Nick Levy MD; Generic ED Physician [...] 07/03/24 1124 DD/ 1050 TD/TT: 07/03/24 1100 Cable Splicer Apprentice: [facility] External Provider IMG XR PROCEDURES Final Result documented in this encounter Visit Diagnoses Not on filedocumented in this encounter Additional Health Concerns Assessment Noted Time PHQ-9 Depression Total Score: 11 023 11:31 AM EST documented as of this encounter Care Teams Ocular Care Technologist Relationship Specialty Start Date End Date Nick Levy MD [address] [place] [address] PCP - General Internal Medicine 08/06/19 documented as of this encounter
--- OUTSIDE RECORDS SUMMARY | 2024-07-21 11:09 | XMS_ITS | Encounter Summary ---
Author Organization [employer] Address [address] [facility] 7t [place] [address] Care Team Providers Care Plater Hot Dip Name Role Phone Nick Levy MD Primary Care Provider [phone] Marbella Thapa PharmD Unavailable [phone] Encounter Details Date Type Department Care Team (Latest Contact Info) Description 07/15/2024 Travel Social History Tobacco Use Types Packs/Day [...] Description 08/03/2024 9:30 AM EST Medication Management [facility] MED & PEDS [address] [place] [address] Marbella Thapa PharmD [address] [place] [address] documented as of this encounter Visit Diagnoses Not on filedocumented in this encounter Additional Health Concerns Assessment Noted Time PHQ-9 Depression Total Score: 5 07/15/19 9:55 AM EST documented as of this encounter Care Teams Plater Hot Dip Relationship Specialty Start Date End Date iNck Levy MD [address] [place] [address] PCP - General Internal Medicine 08/06/19 Marbella Thapa, Mey [address] [place] [address] Pharmacist Internal Medicine 07/06/24 documented as of this encounter
--- OUTSIDE RECORDS SUMMARY | 2024-07-21 11:09 | XMS_ITS | Clinical Summary ---
Author Organization [facility] ity Address [address] [place] [address] Care Team Providers Care Home Housekeeper Name Role Phone Unavailable Primary Care Provider Unavailabl e Social History Tobacco Use Types Packs/Day Years Used Date Smoking Tobacco: Never Assessed Sex and Gender Information Value Date Recorded Sex Assigned at Not on file Legal Sex Male 10:46 AM EST Gender Identity Not on file Sexual Orientation Not on file Plan of Treatment Health Maintenance Due Date Last Done Comments DTaP,Tdap,and Td Vaccines (1 - Tdap) 1976 Hepatitis B Vaccines (1 of 3 - 19+ 3-dose series) 1988 Pneumococcal Vaccine: 50+ Ye ars (1 of 1 - PCV) 2019 Zoster Vaccines (1 of 2) 2019 COVID-19 Vaccine (1 - 2023-2 5 season) 2024 Influenza Vaccine (#1) 2024 [...] patient's age to complete this topic Meningococcal B Vacine Aged Out No lo nger eligible based on patient's age to complete [...]
--- OUTSIDE RECORDS SUMMARY | 2024-07-21 11:09 | XMS_ITS | Encounter Summary ---
Author Organization [employer] Address [address] [place] [address] [place] [address] Care Team Providers Care Belt Press Operator Name Role Phone Nick Levy MD Primary Care Provider [phone] Marbella Thapa PharmD Unavailable [phone] Reason for Referral * Consultation (Routine) - Closed Specialty Diagnoses / Procedures Referred By Ana palma Referred To Contact Behavioral Health Diagnoses Anxiety Nick Levy MD [address] [place] [address] Phone: tel: fax: Referral ID Status Reason Start Date Expiration Date V isits Requested Visits Authorized [id number] Closed Specialty Services Required 07/15/2024 07/15/2025 1 1 Reason for Visit * Reason Comments Diabetes Hypertension Encounter Details Date Type Department Care Team (Late st Contact Info) Description 07/15/2024 9:00 AM EST Office Visit [facility] CHC MED & PEDS [address] [place] [address] Nick Levy MD [address] [place] [address] Type 2 diabetes mellitus with hyperglycemia, without long-term current use of insulin (CMS/HCC) (Primary Dx); Anxiety; Primary hypertension Social History Tobacco Use Types Packs/Day Years [...] 20 07/15/2024 9:12 AM EST Oxygen Saturation - - Inhaled Oxygen Concentration - - Weight 77.1 kg (170 lb) 07/15/2024 9:12 AM EST Height 170.2 cm (5' 7 ) 07/15/2024 9:12 AM EST Body Mass Index 26.63 07/15/2024 9:12 AM EST documented in this encounter Progress Notes * Nick Levy MD - 07/15/2024 9:00 AM EST Subjective Patient ID: Yoan Burk is a 54 y.o. male who presents for Diabetes and Hypertension. Diabetes He presents for his follow-up diabetic visit. He has type 2 diabetes mellitus. Pertinent negatives for diabetes include no blurred vision, no chest pain, no fatigue, no foot paresthesias, no foot ulcerations, no polydipsia, no polyphagia, no polyuria, no visual change, no weakness and no weight loss. He is following a diabetic diet. Hypertension Pertinent negatives include no blurred vision or chest pain. Patient is here for follow-up. States that he checked his fingerstick at home regularly but forgot to bring his recorded blood glucose from home. Denies any symptom of hypoglycemia since the last time he was evaluated in the office. Started on Ozempic 0.25 mg once a week at the last visit. He has started the medication and denies any untoward side effect. History of high blood pressure. Patient claims compliance to his medication. Denies any headache or blurry vision during the evaluation today. 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 Allergies Allergen Reactions Allopurinol Other reaction(s): Trouble Breathing Hydrocodone Other reaction(s): Trouble Breathing Lisinopril Other reaction(s): Trouble Breathing Bactrim [Sulfamethoxazole-Trimethoprim] Rash Review of Systems Constitutional: Negative for appetite change, chills, diaphoresis, fatigue and weight loss. Eyes: Negative for blurred vision. Cardiovascular: Negative for chest pain and leg swelling. Gastrointestinal: Negative for abdominal pain, anal bleeding and blood in stool. Endocrine: Negative for polydipsia, polyphagia and polyuria. Genitourinary: Negative for difficulty urinating and dysuria. Musculoskeletal: Right shoulder pain Neurological: Negative for weakness. Objective Physical Exam Constitutional: General: He is not in acute distress. Appearance: Normal appearance. He is not ill-appearing, toxic-appearing or diaphoretic. Pulmonary: Effort: Pulmonary effort is normal. Musculoskeletal: Comments: Patient was wearing an arm sling on the right Neurological: General: No focal deficit present. Mental Status: He is alert. Psychiatric: Mood and Affect: Mood normal. Assessment/Plan Diagnoses and all orders for this visit: Type 2 diabetes mellitus with hyperglycemia, without long-term current use of insulin ([facility]) Comments: Continue with the current regimen for now Low-carb diet Orders: - POCT Glucose Anxiety Comments: Referral to behavioral. Orders: - Referral to Behavioral Health; Future Primary hypertension Comments: Elevated BP most likely due to patient's current pain To check the blood pressure at home and call the office to inform us of the blood pressure documented in this encounter Plan of Treatment Upcoming Encounters Date Type Department Care Team (Late st Contact Info) Description 08/03/2024 9:30 AM EST Medication Management [facility] MED & PEDS [address] [place] [address] Marbella Thapa, PharmD [address] [place] [address] Scheduled Referrals Name Type Priority Associated Diagnoses Order Schedule Referral to Behavioral Health Outpatient Referral Routine Anxiety Expected: 07/15/2024 (Approximate), Expires: 07/15/2025 documented as of this encounter Procedures Procedure Name Priority Date/Time Associated Diagnosis Comments POCT GLUCOSE Routine 07/15/2024 10:05 AM EST Type 2 diabetes mellitus with hyperglycemia, without long-term current use of insulin ([facility]) documented in this encounter Results * (ABNORMAL) POCT Glucose (07/15/2024 10:05 AM EST) Glucose Blood, POC 329(A) 60 - 200 mg/dL QC Media Lot # [id number] Comment:random Lot# Expiration Date [id number] Blood Capillary blood specimen / Unknown 07/15/2024 10:05 AM EST us Nick Levy MD POINT OF CARE TEST ENTER/ED IT ORDERABLES Final Result documented in this encounter Visit Diagnoses Diagnosis Type 2 diabetes mellitus with hyperglycemia, without long-term current use of insulin ([facility])- Primary Anxiety Anxiety state, unspecified Primary hypertension Unspecified essential hypertension documented in this encounter Additional Health Concerns Assessment Noted Time PHQ-9 Depression Total Score: 5 07/15/19 25 9:55 AM EST documented as of this encounter Care Teams Belt Press Operator Relationship Specialty Start Date End Date Nick Levy MD [address] [place] [address] PCP - General Internal Medicine 08/06/19 Marbella Thapa PharmD [address] [place] [address] Pharmacist Internal Medicine 07/06/24 documented as of this encounter
== END 2024-07-21 10:32 | disposition home or self-care (01) ==
PROVIDERS: PCP Internal Medicine; Visit Provider Orthopaedic Surgery
DX: M25.311 Other instability, right shoulder (principal)
CPT/HCPCS: 99213; G2211

== ENCOUNTER → 2024-07-21 10:00 | Outpatient (BNVA) | payer OTHER, SELFPAY | PROVIDERS: PCP Internal Medicine; Visit Provider Orthopaedic Surgery | DX: M25.311 Other instability, right shoulder (principal) | CPT/HCPCS: 99212 ==

== ENCOUNTER 2024-08-13 09:09 | Emergency (ER) | payer OTHER, SELFPAY ==
--- NOTE | ~2024-08-13 | XR_ITS ---
EXAMINATION: XR FINGER, RIGHT CLINICAL INFORMATION: right thumb, swollen no trauma COMPARISON: May 17, 2009 x-rays no pneumothorax. TECHNIQUE: Oblique and lateral views of the right thumb. PA view right hand. FINDINGS: No osteolysis. No acute cortical disruption. No lytic or blastic lesions. No subcutaneous emphysema. No metallic or radiopaque foreign body. Mild soft tissue edema distal thumb. XR/XR finger RT min 2V IMPRESSION: No acute fracture. No osteomyelitis based on x-ray. Electronically signed by: Sammy Andres MD 08/13/2024 09:48 AM EST
[2024-08-13 09:20] VITALS: BP 143/88; PULSE 95; RESP 20; TEMP 37; O2SAT 99; BMI 26.3
--- NOTE | 2024-08-13 11:28 | ED.EXTPRO ---
HPI - Extremity Problem General Chief complaint: Extremity Problem Stated complaint: R thumb swelling no injury Time Seen by Provider: 08/13/24 11:38 Source: patient and RN notes reviewed Mode of arrival: ambulatory Limitations: no limitations History of Present Illness ED Provider: Kiana Sarah PA-C HPI Narrative: This is a 54-year-old male who presents emergency department for evaluation of right thumb pain since yesterday. Denies any recent trauma or injury. He currently is having a rotator cuff injury which he was being seen for Orthopedics for. History of gout however symptoms do not feel like gout. No fevers or chills. He is right-hand dominant. He has been taking Tylenol for her symptoms which has provided him with some relief. No other complaints or concerns at this time. MD Complaint: extremity pain and extremity swelling Onset (ago): day(s) Pain Consistency: constant Location: right and upper extremity Quality: aching Radiation: none Relieving factors: nothing Exacerbating factors: range of motion and palpation Associated symptoms: denies other symptoms Related Data Home Medications ?Medication ?Instructions ?Recorded ?Confirmed albuterol sulfate 90 mcg/actuation inhalation 10/22/23 07/21/24 aerosol inhaler atenolol 25 mg tablet 25 mg PO QAM 10/22/23 07/21/24 beclomethasone dipropionate 40 inhalation 10/22/23 07/21/24 mcg/actuation HFA breath activated aerosol (Qvar RediHaler) blood sugar diagnostic (True #10 ea 10/22/23 07/21/24 Metrix Glucose Test Strip) chlorthalidone 25 mg tablet 25 mg PO DAILY 10/22/23 07/21/24 glipizide 10 mg tablet 10 mg PO BID 10/22/23 07/21/24 loperamide 2 mg capsule mg PO 10/22/23 07/21/24 meloxicam 15 mg tablet 15 mg PO DAILY 10/22/23 07/21/24 metformin 500 mg tablet 1,000 mg PO BID 10/22/23 07/21/24 simvastatin 40 mg tablet 40 mg PO BEDTIME 10/22/23 07/21/24 semaglutide 0.25 mg or 0.5 mg (2 mg subcut 07/21/24 07/21/24 mg/3 mL) subcutaneous pen injector (Ozempic) Previous Rx's ?Medication ?Instructions ?Recorded lorazepam 1 mg tablet (Ativan) 1 mg PO ONCE PRN anxiety #2 tabs 07/21/24 cephalexin 500 mg capsule 500 mg PO QID 5 days #20 caps 08/13/24 doxycycline hyclate 100 mg capsule 100 mg PO BID 5 days #10 caps 08/13/24 Allergies Allergy/AdvReac Type Severity Reaction Status Date / Time allopurinol [ALLOPURINOL] Allergy Unknown ANAPHYLAXIS, Verified 08/13/24 09:22 Throat Swelling, throat swelling lisinopril [LISINOPRIL] Allergy Unknown COUGH Verified 08/13/24 09:22 losartan Allergy Unknown diarrhea Verified 08/13/24 09:22 sulfamethoxazole Allergy Unknown Verified 08/13/24 09:22 [From Bactrim] trimethoprim [From Bactrim] Allergy Unknown Verified 08/13/24 09:22 From VICODIN Allergy Unknown ANAPHYLAXIS Uncoded 08/13/24 09:22 HYDROCODONE Allergy Unknown Shortness Uncoded 08/13/24 09:22 of Breath Hydrocodone-Acetaminophen Allergy Unknown shortness Uncoded 08/13/24 09:22 of breath Review of Systems Review of Systems: Yes all other systems are reviewed and are negative [facility] Past Medical History Medical History Diabetes Surgical History Hx of cholecystectomy Hx of appendectomy Social History Social History Alcohol intake: former Patient Tobacco Use Status: Never used Tobacco Advance Directives: No Advance Directives Information Provided: No 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 No acute distress. HEENT: Normal inspection CVS: Normal heart rate and rhythm. Pulses normal. Respiratory: No respiratory distress Skin: Warm, dry, no rashes noted to exposed skin. Normal skin color. Normal skin turgor. Extremities: Right thumb, with moderate edema and warmth noted throughout entire thumb, no overlying erythema. Full ROM at the DIP, and PIP. Will to oppose thumb to all digits. Strong radial pulse. No streaking. See photo below Neuro: Oriented X 3. No motor deficit. No sensory deficit. Medical Decision Making Medical Decision Making MDM Narrative: This is a 54-year-old male who presents emergency department with concerns for right thumb pain. No trauma or injury. On arrival, patient mildly hypertensive at 143/88. Thumb with moderate edema, slight warmth, no significant erythema noted. Able to flex and extend at the PIP and DIP. Strong radial pulse. Differential diagnoses include cellulitis, arthritis, septic arthritis-unlikely as patient has full ROM of the PIP and DIP. Gout also on the differential. He is diabetic therefore prednisone is contraindicated. Will treat as underlying start of cellulitis, with doxycycline and Keflex. Given strict return precautions. He understands and agrees with plan. X-ray was obtained revealing mild soft tissue swelling. Patient stable for discharge Differential Diagnosis Differential Diagnoses: The differential diagnosis associated with the presentation includes See above Radiology Impression Discussion of test interpretation with radiology: I have reviewed the radiologist's reading. Radiologist Impression: EXAMINATION: XR FINGER, RIGHT CLINICAL INFORMATION: right thumb, swollen no trauma COMPARISON: May 17, 2009 x-rays no pneumothorax. TECHNIQUE: Oblique and lateral views of the right thumb. PA view right hand. FINDINGS: No osteolysis. No acute cortical disruption. No lytic or blastic lesions. No subcutaneous emphysema. No metallic or radiopaque foreign body. Mild soft tissue edema distal thumb. XR/XR finger RT min 2V IMPRESSION: No acute fracture. No osteomyelitis based on x-ray. Electronically signed by: Sammy Andres MD 08/13/2024 09:48 AM [facility] Discharge Plan Discharge Clinical Impression: Pain of right thumb, Cellulitis Patient Disposition: Home, Self-Care Instructions: Cellulitis (ED), Arthralgia (ED) Additional Instructions: You were seen in the emergency department for evaluation of right thumb pain and swelling. Your x-ray shows no abnormal bony involvement. It is unclear if your having the start of an early infection, or if this is an inflammatory process. Please take antibiotics as directed. Finish the entire course even if your symptoms improve. I am recommending alternating between ibuprofen and Tylenol for pain and inflammation. Keep a close eye on your symptoms, please return if any new or worsening symptoms occur this includes worsening range of motion of your digit. Prescriptions: New cephalexin 500 mg capsule 500 mg PO QID 5 Days Qty: 20 0RF doxycycline hyclate 100 mg capsule 100 mg PO BID 5 Days Qty: 10 0RF No Action meloxicam 15 mg tablet 15 mg PO DAILY simvastatin 40 mg tablet 40 mg PO BEDTIME chlorthalidone 25 mg tablet 25 mg PO DAILY atenolol 25 mg tablet 25 mg PO QAM albuterol sulfate 90 mcg/actuation HFA aerosol inhaler inhalation glipizide 10 mg tablet 10 mg PO BID loperamide 2 mg capsule PO (DME) True Metrix Glucose Test Strip Strip See Rx Instructions .ROUTE TID Qty: 10 Rx Instructions: As directed metformin 500 mg tablet 1,000 mg PO BID Qvar RediHaler 40 mcg/actuation HFA aerosol breath activated inhalation Ozempic 0.25 mg or 0.5 mg (2 mg/3 mL) pen injector subcut lorazepam [Ativan] 1 mg tablet 1 mg PO ONCE PRN (Reason: anxiety) Qty: 2 0RF Rx Instructions: Take one tab 2 hours before your right shoulder MRI; take the second tab 30 minutes before your MRI Interventions: ED Discharge Assessment Last Done: 08/13/24 11:42 Print Language: Swazi
[2024-08-13 11:30] VITALS: BP 143/95; PULSE 95; RESP 16; TEMP 36.2; O2SAT 98
[2024-08-13 11:42] VITALS: BP 143/95; PULSE 95; RESP 16; TEMP 36.2; O2SAT 98
--- OUTSIDE RECORDS SUMMARY | 2024-08-13 14:13 | XMS_ITS | Clinical Summary ---
Author Organization [employer] Address [address] [facility] [address] [place] [address] Care Team Providers Care Motors And Controls Tester Name Role Phone Nick Levy MD Primary Care Provider [phone] Marbella Thapa PharmD Unavailable [phone] Allergies Active Allergy Reactions Criticality Noted Date [...] (six) hours if needed. 12/14/19 22 Active cetirizine (ZyrTEC) 10 MG tablet Take 1 tablet by mouth at bed time. 01/21/20 21 Active betamethasone valerate (Valisone) 0.1 % ointmentIndicat [...] 2 diabetes mellitus without complication, unspecified whether fci insulin use (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) TAKE ONE TABLET BY MOUTH EVERY DAY 30 tablet 5 05/01/20 24 Active meloxicam (Mobic) 15 MG tablet TAKE ONE TABLET BY MOUTH EVERY DAY. 30 tablet 5 06/12/19 25 Active Semaglutide,0.2 5 or 0.5MG/DOS, (Ozempic, 0.25 or 0.5 MG/DOSE,) 2 MG/3ML solution pen-injector Inject 0.5 mg under the skin 1 (one) time per week. 3 mL 2 07/06/19 25 Active Blood Glucose Monitoring Suppl (FreeStyle [place] Lite) w/Device kit Test blood sugar daily 1 kit 08/03/19 25 Active glucose blood test strip Test blood sugar daily 100 each 08/03/19 25 026 Active TRUEplus Lancets 33G misc Test blood sugar daily 100 each 08/03/19 25 Active Blood Glucose Monitoring Suppl (FreeStyle [place] Lite) w/Device kit TEST BLOOD SUGAR EVERY DAY 03/20/20 22 025 Discontinued(Re order (will not trigger notification to Pharmacy)) TRUEplus Lancets 33G misc TEST BLOOD SUGAR EVERY DAY 03/20/20 22 025 Discontinued(Re order (will not trigger notification to Pharmacy)) FREESTYLE LITE test strip TEST BLOOD SUGAR EVERY DAY 50 strip 5 05/01/20 23 025 Discontinued(Al ternate therapy) Blood Glucose Monitoring Suppl (FreeStyle Lite) deviceIndicatio ns:Type 2 diabetes mellitus with hyperglycemia, without long-term current use of insulin (CMS/HCC) Inject under the skin in the morning. Test daily before all meals/snacks and once before bedtime. 1 each 05/06/20 23 025 Discontinued(Du plicate order (will not trigger notification to Pharmacy)) glucose blood (True Metrix Blood Glucose Test) test strip Test blood sugar every morning 100 each 11 08/03/19 25 025 Discontinued(Al ternate therapy) Active Problems Problem Noted Date Diagnosed Date [...] Declined CM referral. At this time Yoan Delgado Jr Wm meets criteria for Visit Diagnoses: Problem List Items Addressed This Visit Other Anxiety Severe episode of recurrent major depressive disorder, without psychotic features (CMS/HCC) Stress-related problem Patient ready to address current needs Yes Strengths include awareness of the problem and motivation to change. PLAN: 1. Follow up with [facility]: Not recommended for follow-up 2. Patient goal [...] to change. PLAN: 1. Follow up with [facility]: Not recommended for follow-up 2. Patient goal [...] Declined CM referral. At this time Yoan Murphyolomew meets criteria for Visit Diagnoses: Problem List Items Addressed This Visit Other Anxiety Severe episode of recurrent major depressive disorder, without psychotic features (CMS/HCC) Stress-related problem Patient ready to address current needs Yes Strengths include awareness of the problem and motivation to change. PLAN: 1. Follow up with [facility]: Not recommended for follow-up 2. Patient goal [...] organization. Date Type Department Care Team Description 08/13/2024 Orders Only [facility] External Provider, [facility] 08/03/2024 Travel 07/24/2024 Telephone [facility] [address] [place] [address] Nick Levy MD 07/15/2024 9:00 AM EST Office Visit [facility] [address] [place] [address] Nick Levy MD Type 2 diabetes mellitus with hyperglycemia, without long-term current use of insulin (CMS/HCC) (Primary Dx); Anxiety; Primary hypertension 07/15/2024 Travel 07/13/2024 9:20 AM EST Office Visit [facility] [address] [place] [address] Lisset Caldwell NP Acute pain of right shoulder (Primary Dx) 07/06/2024 Travel 07/03/2024 Orders Only [facility] External Provider, [facility] 06/19/2024 Telephone [facility] [address] [place] [address] Nick Levy MD 06/12/2024 Refill [facility] [address] [place] [address] Nick Levy MD 05/28/2024 Telephone [facility] [address] [place] [address] Phyllis Cuba, RN Results 05/27/2024 9:00 AM EST Office Visit [facility] [address] [place] [address] Nick Levy MD Type 2 diabetes mellitus with hyperglycemia, without long-term current use of insulin (CMS/HCC) (Primary Dx); Primary hypertension; Encounter for immunization; Chronic toe pain, left foot; Primary osteoarthritis of right foot; Other chest pain; 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 (CMS/HCC); Severe episode of recurrent major depressive disorder, without psychotic features (CMS/HCC); Alcoholism (CMS/HCC) 05/27/2024 Orders Only [facility] [address] [place] [address] Nick Levy MD Transaminitis (Primary Dx) 05/27/2024 Telephone [facility] [address] [place], [place] [phone] Nick Levy MD 05/27/2024 Travel from Last 3 Months Immunizations Name Administration [...] Care Team (Late st Contact Info) Description 08/31/2024 9:30 AM EDT Medication Management [facility] [address] [place] [address] Marbella Thapa, PharmD [address] [place] [address] 10/19/2024 10:00 AM EDT Office Visit [facility] [address] [place] [address] Nick Levy MD [address] [place] [address] Health Maintenance Due Date Last Done Comments [...] Name Priority Date/Time Associated Diagnosis Comments XR FINGERS 2+ VIEWS RIGHT Routine 08/13/2024 9:28 AM EST POCT GLUCOSE Routine 07/15/2024 10:05 AM EST Type 2 diabetes mellitus with hyperglycemia, without long-term current use of insulin (CMS/HCC) XR WRIST 1-2 VIEWS RIGHT Routine 07/03/2024 [...] hyperglycemia, without long-term current use of insulin ([facility]) Primary hypertension Other chest pain CBC WITH AUTO DIFFERENTIAL Routine 05/27/2024 10:31 AM EST Type 2 diabetes mellitus with hyperglycemia, without long-term current use of insulin ([facility]) Primary hypertension Other chest pain POCT GLUCOSE Routine 05/27/2024 9:35 AM EST Type 2 diabetes mellitus with hyperglycemia, without long-term current use of insulin ([facility]) POCT GLYCATED HEMOGLOBIN, TOTAL Routine 05/27/2024 9:31 AM EST Type 2 diabetes mellitus with hyperglycemia, without long-term current use of insulin ([facility]) BITEWING - SINGLE RADIOGRAPHIC IMAGE Routine 04/21/2024 9:00 AM EST ALBUMIN, RANDOM URINE W/CREATININE Routine 12/31/2022 10:19 AM EDT from Last 3 Months or Most Recently Relevant to Health Maintenance Results * XR Fingers 2+ Views Right (08/13/2024 9:28 AM EST) Anatomical Region Laterality Modality Upper Extremities, Fingers Right Radio graphic Imaging 08/13/2024 9:28 AM EST Narrative 08/13/2024 9:50 AM EST ? [facility] ?[address] ?[place] [address] ?XRay Report ? Signed ? Patient: [place],Yoan K ?MR#: [id number] ?? [id number] ? : 1970 ?Acct:[id number] ? Age/Sex: 54 / M ?ADM Date: 08/13/25 ? Loc: HO.ED ? Attending Dr: ? Ordering Physician: Generic ED Physician ?? Date of Service: 08/13/24 ?? Procedure(s): XR finger RT min 2V ?? Accession Number(s): [id number] ? cc: Nick Levy MD; Generic ED Physician ? EXAMINATION: ?? XR FINGER, RIGHT ? CLINICAL INFORMATION: ?? right thumb, swollen no trauma ? COMPARISON: ?? May 17, 2009 x-rays no pneumothorax. ? TECHNIQUE: ?? Oblique and lateral views of the right thumb. PA view right hand. ? FINDINGS: ?? No osteolysis. No acute cortical disruption. No lytic or blastic ?? lesions. No subcutaneous emphysema. No metallic or radiopaque foreign ?? body. Mild soft tissue edema distal thumb. ? XR/XR finger RT min 2V ?? IMPRESSION: ?? No acute fracture. No osteomyelitis based on x-ray. ? Electronically signed by: ??Sammy Andres MD ??08/13/2024 09:48 AM ?? EST RP ? Dictated By: ?Sammy Hinojosa MD ? Signed By: ?<Electronically signed by Sammy Mcrae MD in OV> ? 08/13/24 0948 ? DD/ ? TD/TT: 08/13/24 0934 ? Social Contact Worker: ? Procedure Note Donananyater, Image - 08/13/2024 [place] [address] XRay Report Signed Patient: Yoan Burk KMR#: [id number] : 1970Acct:[id number] Age/Sex: 54 / MADM Date: 08/13/24 Loc: HO.ED Attending Dr: Ordering Physician: Generic ED Physician Date of Service: 08/13/24 Procedure(s): XR finger RT min 2V Accession Number(s): [id number] cc: Nick Levy MD; Generic ED Physician EXAMINATION: XR FINGER, RIGHT CLINICAL INFORMATION: right thumb, swollen no trauma COMPARISON: May 17, 2009 x-rays no pneumothorax. TECHNIQUE: Oblique and lateral views of the right thumb. PA view right hand. FINDINGS: No osteolysis. No acute cortical disruption. No lytic or blastic lesions. No subcutaneous emphysema. No metallic or radiopaque foreign body. Mild soft tissue edema distal thumb. XR/XR finger RT min 2V IMPRESSION: No acute fracture. No osteomyelitis based on x-ray. Electronically signed by: Sammy Andres MD 08/13/2024 09:48 AM EST Dictated By: Sammy Hinojosa MD Signed By: <Electronically signed by Sammy Mcrae MDin OV> 08/13/2448 DD/ 7 TD/TT: 08/13/24933 Social Contact Worker: us [facility] External Provider IMG XR PROCEDURES Final Result * (ABNORMAL) POCT Glucose (07/15/2024 10:05 AM EST) Only the most recent of2 resultswithin the time period is included. [facility] Glucose Blood, POC 329(A) 60 - 200 mg/dL QC Media Lot # [id number] Comment:random Lot# Expiration Date [id number] Blood Capillary blood specimen / Unknown 07/15/2024 10:05 AM EST us Nick Levy MD POINT OF CARE TEST ENTER/ED IT ORDERABLES Final Result * XR Wrist 1-2 Views Right (07/03/2024 11:00 AM EST) Anatomical Region Laterality Modality Upper Extremities, Wrist Right Radiogr aphic Imaging 07/03/2024 11:0 0 AM EST Narrative 07/03/2024 11:23 AM EST ? [facility] ?[address] ?[place] [address] ?XRay Report ? Signed ? Patient: Daryl Burkph K ?MR#: [id number] ?? [id number] ? : 1970 ?Acct:[id number] ? Age/Sex: 54 / M ?ADM Date: 07/03/24 ? Loc: HO.ED ? Attending Dr: ? Ordering Physician: Generic ED Physician ?? Date of Service: 07/03/24 ?? Procedure(s): XR wrist RT 2V ?? Accession Number(s): [id number] ? cc: Nick Levy MD; Generic ED [...] signed by Wesley Shaffer MD in OV> ?07/03/241120 ? DD/ 1100 ? TD/TT: 07/03/24 1100 ? Social Contact Worker: ? Procedure Note Krystalondon, Image - 07/03/2024 [place] [address] XRay Report Signed Patient: Yoan Burk KMR#: [id number] : 1970Acct:[id number] Age/Sex: 54 / MADM Date: 07/03/24 Loc: HO.ED Attending Dr: Ordering Physician: Generic ED Physician Date of Service: 07/03/24 Procedure(s): XR wrist RT 2V Accession Number(s): [id number] cc: Nick Levy MD; Generic ED Physician [...] 07/03/24 1121 DD/ 1100 TD/TT: 07/03/24 1100 Social Contact Worker: us [facility] External Provider IMG XR PROCEDURES Final Result * XR Elbow 1-2 Views Right (07/03/2024 11:00 AM EST) Anatomical Region Laterality Modality Upper Extremities, Elbow Right Radiogr aphic Imaging 07/03/2024 11:0 0 AM EST Narrative 07/03/2024 11:22 AM EST ? [facility] ?[address] ?[place] [address] ?XRay Report ? Signed ? Patient: Wm,Yoan K ?MR#: [id number] ?? [id number] ? : 1970 ?Acct:[id number] ? Age/Sex: 54 / M ?ADM Date: 07/03/24 ? Loc: HO.ED ? Attending Dr: ? Ordering Physician: Generic ED Physician ?? Date of Service: 07/03/24 ?? Procedure(s): XR elbow RT 2V ?? Accession Number(s): [id number] ? cc: Nick Levy MD; Generic ED [...] DD/ 1100 ? TD/TT: 07/03/24 1100 ? Social Contact Worker: ? Procedure Note Geo, Rainer - 07/03/[address] [address] XRay Report Signed Patient: Yoan Burk KMR#: [id number] : 1970Acct:[id number] Age/Sex: 54 / MADM Date: 07/03/24 Loc: HO.ED Attending Dr: Ordering Physician: Generic ED Physician Date of Service: 07/03/24 Procedure(s): XR elbow RT 2V Accession Number(s): [id number] cc: Nick Levy MD; Generic ED Physician [...] Wesley Shaffer MD 07/03/2024 11:19 AM EST RP Dictated By: Wesley Shaffer MD Signed By: <Electronically signed by Wesley Shaffer MD in OV> 07/03/24 1119 DD/ 1100 TD/TT: 07/03/24 1100 Social Contact Worker: [facility] External Provider IMG XR PROCEDURES Final Result * XR Shoulder 2+ Views Right (07/03/2024 10:50 AM EST) Anatomical Region Laterality Modality Upper Extremities, Shoulder Right Radi ographic Imaging 07/03/2024 10:5 0 AM EST Narrative 07/03/2024 11:26 AM EST ? [facility] ?[address] ?[place] [address] ?XRay Report ? Signed ? Patient: Wm,Yoan K ?MR#: [id number] ?? [id number] ? : 1970 ?Acct:[id number] ? Age/Sex: 54 / M ?ADM Date: 01/24/25 ? Loc: HO.ED ? Attending Dr: ? Ordering Physician: Generic ED Physician ?? Date of Service: 07/03/24 ?? Procedure(s): XR shoulder RT min 2V ?? Accession Number(s): [id number] ? cc: Nick Levy MD; Generic ED [...] DD/ 1050 ? TD/TT: 07/03/24 1100 ? Social Contact Worker: ? Procedure Note Rainer Guardado - 07/03/2024 [place] [address] XRay Report Signed Patient: Yoan Burk KMR#: [id number] : 1970Acct:[id number] Age/Sex: 54 / MADM Date: 07/03/24 Loc: HO.ED Attending Dr: Ordering Physician: Generic ED Physician Date of Service: 07/03/24 Procedure(s): XR shoulder RT min 2V Accession Number(s): [id number] cc: Nick Levy MD; Generic ED Physician [...] 07/03/24 1124 DD/ 1050 TD/TT: 07/03/24 1100 Social Contact Worker: [facility] External Provider IMG XR PROCEDURES Final Result * XR Lumbar Spine 2-3 Views (07/03/2024 10:50 AM EST) Anatomical Region Laterality Modality Spine, L-spine Radiographic Kyara ging 07/03/2024 10:5 0 AM EST Narrative 07/03/2024 11:29 AM EST ? [facility] ?[address] ?[place] [address] ?XRay Report ? Signed ? Patient: Yoan Burk ?MR#: [id number] ?? [id number] ? : 1970 ?Acct:[id number] ? Age/Sex: 54 / M ?ADM Date: 07/03/24 ? Loc: HO.ED ? Attending Dr: ? Ordering Physician: Generic ED Physician ?? Date of Service: 07/03/24 ?? Procedure(s): XR lumbar spine 2-3V ?? Accession Number(s): [id number] ? cc: Nick Levy MD; Generic ED [...] signed by Wesley Shaffer MD in OV> ?07/03/246 ? DD/ 1050 ? TD/TT: 07/03/24 1100 ? Social Contact Worker: ? Procedure Note Rainer Guardado - 07/03/[address] [address] XRay Report Signed Patient: Yoan Burk KMR#: [id number] : 1970Acct:[id number] Age/Sex: 54 / MADM Date: 07/03/24 Loc: HO.ED Attending Dr: Ordering Physician: Generic ED Physician Date of Service: 07/03/24 Procedure(s): XR lumbar spine 2-3V Accession Number(s): [id number] cc: Nick Levy MD; Generic ED Physician [...] 07/03/24 1126 DD/ 1050 TD/TT: 07/03/24 1100 Social Contact Worker: [facility] External Provider IMG XR PROCEDURES Final Result * US Abdomen Complete (06/19/2024 7:48 AM EST) Anatomical Region Laterality Modality Abdomen Ultrasound 06/19/2024 7:48 AM EST Narrative 06/19/2024 7:50 AM EST ? [facility] ?[address] ?[place] [address] ? Ultrasound Report ? Signed ? Patient: Yoan Burk ?MR#: [id number] ?? [id number] ? : 1970 ?Acct:[id number] ? Age/Sex: 54 / M ?ADM Date: 06/17/24 ? Loc: HO.US ? Attending Dr: Nick Levy MD ? Ordering Physician: Nick Levy MD ?? Date of Service: 06/17/24 ?? Procedure(s): US abdomen complete ?? Accession Number(s): [id number] ? cc: Nick Levy MD ? CLINICAL [...] ? DD/ 7 ? TD/TT: 06/19/24747 ? Social Contact Worker: ? Procedure Note Donotarnoldter, Image - 06/19/[address] [address] Ultrasound Report Signed Patient: Yoan Burk KMR#: [id number] : 1970Acct:[id number] Age/Sex: 54 / MADM Date: 06/17/24 Loc: HO.US Attending Dr: Nick Levy MD Ordering Physician: Nick Levy MD Date of Service: 06/17/24 Procedure(s): US abdomen complete Accession Number(s): [id number] cc: Nick Levy MD CLINICAL HISTORY: Transaminitis [...] signed by Isiah Schwartz MD in OV> 06/19/24748 DD/ 7 TD/TT: 06/19/24747 Social Contact Worker: us Nick Levy MD IMG US PROCEDURES Final Res ult * ECG 12 lead (05/27/2024 11:54 AM EST) Narrative Nick Levy MD - 05/27/2024 11:54 AM EST Sinus rhythm. HR: 79. Arabi: 67 degrees. No sign of LAE, CRUZ. No sign of hypertrophy. No ST elevation or depression. Normal EKG> us Nick Levy MD ECG ORDERABLES Final Resul t * TSH W/Reflex to FT4 (05/27/2024 10:31 AM EST) Pathologist [facility] TSH reflex Free T4 2.46 0.32 - 4.0 uIU/mL [facility] Blood Venous blood specimen / Unknown 05/27/2024 10:31 AM EST 05/27/2024 2:06 PM EST us Nick Levy MD LAB BLOOD ORDERABLES Final Result Performing Organization Address City/State/[facility] Co de Phone Number [facility] [address] [place] [phone] * CBC auto differential (05/27/2024 10:31 AM EST) Pathologist [facility] White Blood Count 7.4 4.8 - 10.8 X10*3/uL [facility] Red Blood Count 5.50 4.60 - 5.80 X10*6/uL [facility] Hemoglobin 15.1 14.0 - 18.0 g/dl [facility] Hematocrit 45.0 42.0 - 52.0 % [facility] Mean Corpuscular Volume 81.8 80.0 - 98.0 fL [facility] Mean Corpuscular Hemoglobin 27.5 27.0 - 33.0 pg [facility] Mean Corpuscular HGB Conc 33.6 31.0 - 36.0 g/dl [facility] Red Cell Distribution Width 12.5 11.0 - 16.0 % [facility] Platelet Count 238 160 - 400 X10*3/uL [facility] Mean Platelet Volume 11.7 9.4 - 12.4 fL [facility] Neutrophils Percent Auto 67.1 45 - 73 % [facility] Imm Gran Pct Auto 0.3 0.0 - 0.4 % [facility] Lymphocytes Percent Auto 23.2 20 - 40 % [facility] Monocytes Percent Auto 7.3 2 - 11 % [facility] Eosinophils Percent Auto 1.6 0 - 4 % [facility] Basophils Percent Auto 0.5 0 - 2 % [facility] NRBC Pct Auto 0.0 0.0 - 0.2 /100WBC [facility] Neutrophils Absolute Auto 5.0 2.0 - 8.3 x10*3/uL [facility] Imm Gran Abs Auto 0.02 0.00 - 0.03 X10*3/uL [facility] Lymphocytes Absolute Auto 1.7 1.2 - 4.9 X10*3/uL [facility] Monocytes Absolute Auto 0.5 0.1 - 1.2 X10*3/uL [facility] Eosinophils Absolute Auto 0.1 0.0 - 0.4 X10*3/uL [facility] Basophils Absolute Auto 0.0 0.0 - 0.2 X10*3/uL [facility] NRBC Abs Auto 0.000 0.0 - 0.012 X10*3/uL [facility] Blood Venous blood specimen / Unknown 05/27/2024 10:31 AM EST 05/27/2024 2:06 PM EST us Nick Levy MD LAB BLOOD ORDERABLES Final Result [facility] [address] [place] [address] [phone] * Hepatitis C Antibody with Reflex to HCV, RNA, Quantitative, Real-Time PCR (05/27/2024 10:31 AM EST) Hepatitis C Antibody Nonreactive Nonreactive [facility] Comment:Antibodies to HCV no t detected; does not exclude early acuteHCV infection. Blood Venous blood specimen / Unknown 05/27/2024 10:31 AM EST 05/27/2024 2:06 PM EST us Nick Levy MD LAB BLOOD ORDERABLES Final Result Performing Organization Address [facility] Co de Phone Number [facility] [address] [place] [phone] * Hepatitis B Surface Antibody, Qualitative (05/27/2024 10:31 AM EST) Pathologist [facility] ~Hepatitis B Surface Antibody REACTIVE Nonreactive [facility] Comment:REACTIVE: > 11.99 mI U/mL Blood Venous blood specimen / Unknown 05/27/2024 10:31 AM EST 05/27/2024 2:06 PM EST us Nick Levy MD LAB BLOOD ORDERABLES Final Result Performing Organization Address [facility] Co de Phone Number [facility] [address] [place] [phone] * (ABNORMAL) Lipid Panel, Standard (05/27/2024 10:31 AM EST) Pathologist [facility] Triglycerides 133 <150 mg/dL [facility] Comment:Desirable Triglyceri de: less than 150 mg/dLBorderline High Triglyceride 150-199 mg/dLHigh Triglyceride: 200-499 mg/dLVery High Triglyceride: greater than or equal to 5OO mg/dL Cholesterol 110 <200 mg/dL [facility] Comment:Desirable Cholestero l: less than 200 mg/dLBorderline High Cholesterol: 200-239 mg/dLHigh Cholesterol: greater than 239 mg/dL LDL Cholesterol Calculated 52 <100 mg/dL [facility] Comment:Desirable LDL: less than 100 mg/dLNear Optimal/Above Optimal LDL: 110- 129 mg/dLBorderline High LDL: 130-159 mg/dLHigh LDL: 160-189 mg/dLVery High LDL: greater than or equal to 190 mg/dL HDL Cholesterol 32(L) >40 mg/dL [facility] Comment:Desirable HDL: great er than 40 mg/dL Note: This HDL assay may give artificially low results in patients with liver disease. Blood Venous blood specimen / Unknown 05/27/2024 10:31 AM EST 05/27/2024 2:06 PM EST us Nick Levy MD LAB BLOOD ORDERABLES Final Result [facility] [address] [place] [phone] [phone] * (ABNORMAL) Comprehensive Metabolic Panel (05/27/2024 10:31 AM EST) Sodium 136 135 - 145 mmol/L [facility] Potassium 4.0 3.3 - 5.1 mmol/L [facility] Chloride 101 96 - 108 mmol/L [facility] Carbon Dioxide 30(H) 22 - 29 mmol/L [facility] Anion Gap 9(L) 12 - 20 [facility] Urea Nitrogen (BUN) 18(H) 9 - 16 mg/dL [facility] Creatinine, Serum 1.00 0.5 - 1.4 mg/dL [facility] Estimated Glomerular Filt Rate >60 [facility] Comment:Chronic Kidney Disea se: Estimated GFR < 60 mL/min/[id number] Kidney Disease: Estimated GFR < 15 mL/min/1.73m2 Glucose 387(HH) 60 - 115 mg/dL [facility] Comment:Critical value for Doug NOELLE: Results called to and read backby: BUZZ Camacho Person calling: DORI Date:05/27/24 Time:1439 Calcium 8.8 8.4 - 10.2 mg/dL [facility] Bilirubin, Total 1.4(H) 0.0 - 1.0 mg/dL [facility] Aspartate Amino Transferase 34 5 - 37 U/L [facility] Alanine Aminotransferase 46(H) 0 - 40 U/L [facility] Total Protein 7.6 6.5 - 8.0 g/dL [facility] Albumin Level 4.3 3.5 - 5.0 g/dL [facility] Alkaline Phosphatase 62 39 - 117 U/L [facility] Blood Venous blood specimen / Unknown 05/27/2024 10:31 AM EST 05/27/2024 2:06 PM EST us Nick Levy MD LAB BLOOD ORDERABLES Final Result Performing Organization Address [facility]/ZIP Co de Phone Number [facility] [address] [place] [phone] * (ABNORMAL) POCT HGB A1C (05/27/2024 9:31 AM EST) Hemoglobin A1C 11.3(A) 4.0 - 6.0 % QC Media Lot # [id number] Lot# Expiration Date [id number] Blood 05/27/2024 9:31 AM EST us Nick Levy MD POINT OF CARE TEST ENTER/ED IT ORDERABLES Final Result * Albumin, Random Urine W/Creatinine (12/31/2022 10:19 AM EDT) Creatinine, Urine 198.54 mg/dL [facility] Microalbumin Urine 15.0 mg/L [facility] Microalbum Creatinine Ratio Ur 7.5 ug/mg cr [facility] Comment:Albumin/Creatinine R atio Reference Ranges: Normal: < 30 ug/mg creatinine Microalbuminuria: 30 - 300 ug/mg creatinineClinical Albuminuria: > 300 ug/mg creatinine 12/31/2022 10:1 9 AM EDT 12/31/2022 2:13 PM EDT us Nick Levy MD LAB URINE ORDERABLES Final Result Performing Organization Address City/[facility]/ZIP Co de Phone Number [facility] [address] [place] [phone] from Last 3 Months or Most Recently Relevant to Health Maintenance Insurance [facility] - HSN FULL (MEDICAID) ESIS WORK COMP Care Teams Motors And Controls Tester Relationship Specialty Start Date End Date Nick Levy MD [address] [place] [id number] PCP - General Internal Medicine 08/06/19 Marbella Thapa PharmD [address] [place] [address] Pharmacist Internal Medicine 07/06/24
--- OUTSIDE RECORDS SUMMARY | 2024-08-13 14:14 | XMS_ITS | Encounter Summary ---
Author Organization [employer] Address [address] [facility] [address] 7t [place] [address] Care Team Providers Care Classification Inspector Name Role Phone Nick Levy MD Primary Care Provider +1- [phone] Marbella Thapa PharmD Unavailable [phone] Encounter Details Date Type Department Care Team (Late st Contact Info) Description 08/13/2024 Orders Only [facility] External Provider, [facility] Social History Tobacco Use Types Packs/Day Years [...] Description 08/31/2024 9:30 AM EDT Medication Management [facility] MED & PEDS [address] [place] [address] Marbella Thapa PharmD [address] [place] [address] 10/19/2024 10:00 AM EDT Office Visit [facility] PEDS [address] [place] [address] Nick Levy MD 505 [place] [address] documented as of this encounter Procedures Procedure Name Priority Date/Time Associated Diagnosis Comments XR FINGERS 2+ VIEWS RIGHT Routine 08/13/2024 9:28 AM EST documented in this encounter Results * XR Fingers 2+ Views Right (08/13/2024 9:28 AM EST) Anatomical Region Laterality Modality Upper Extremities, Fingers Right Radio graphic Imaging 08/13/2024 9:28 AM EST Narrative 08/13/2024 9:50 AM EST ? [facility] ?[address] ?[place] [address] ?XRay Report ? Signed ? Patient: Wm,Yoan K ?MR#: [id number] ?? [id number] ? : 1970 ?Acct:[id number] ? Age/Sex: 54 / M ?ADM Date: 08/13/24 ? Loc: HO.ED ? Attending Dr: ? Ordering Physician: Generic ED Physician ?? Date of Service: 08/13/24 ?? Procedure(s): XR finger RT min 2V ?? Accession Number(s): [id number] ? cc: Nick Levy MD; Generic ED [...] in OV> ? 08/13/24 0948 ? DD/ 7 ? TD/TT: 08/13/2434 ? Jboss Developer: ? Procedure Note Rainer Guardado - 08/13/[address] [address] XRay Report Signed Patient: Yoan Burk KMR#: [id number] : 1970Acct:[id number] Age/Sex: 54 / MADM Date: 08/13/24 Loc: HO.ED Attending Dr: Ordering Physician: Generic ED Physician Date of Service: 08/13/24 Procedure(s): XR finger RT min 2V Accession Number(s): [id number] cc: Nick Levy MD; Generic ED Physician [...] Sammy Andres MD 08/13/2024 09:48 AM EST RP Dictated By: Sammy Hinojosa MD Signed By: <Electronically signed by Sammy Mcrae MDin OV> 08/13/2448 DD/ 7 TD/TT: 08/13/24933 Jboss Developer: [facility] External Provider IMG XR PROCEDURES Final Result documented in this encounter Visit Diagnoses Not on filedocumented in this encounter Additional Health Concerns Assessment Noted Time PHQ-9 Depression Total Score: 5 07/16/19 25 3:41 PM EST documented as of this encounter Care Teams Classification Inspector Relationship Specialty Start Date End Date Nick Levy MD [address] [place] [address] PCP - General Internal Medicine 08/06/19 Marbella Thapa PharmD [address] [place] [address] Pharmacist Internal Medicine 07/06/24 documented as of this encounter
--- OUTSIDE RECORDS SUMMARY | 2024-08-13 14:14 | XMS_ITS | Encounter Summary ---
Author Organization [employer] Address 75 [facility] 7t [place] [address] Care Team Providers Care Warehouse Laborer Name Role Phone Nick Levy MD Primary Care Provider +1- [phone] Marbella Thapa PharmD Unavailable [phone] Encounter Details Date Type Department Care Team [...] Description 08/31/2024 9:30 AM EDT Medication Management [facility] MED & PEDS [address] [place] [address] Marbella Thapa PharmD 230 [place] [address] 10/19/2024 10:00 AM EDT Office Visit [facility] MED & PEDS [address] [place] [address] Nick Levy MD 505 [place] [address] documented as of this encounter Visit Diagnoses Not on filedocumented in this encounter Additional Health Concerns Assessment Noted Time PHQ-9 Depression Total Score: 5 07/15/19 9:55 AM EST documented as of this encounter Care Teams Warehouse Laborer Relationship Specialty Start Date End Date Nick Levy MD 505 [place] [address] PCP - General Internal Medicine 08/06/19 Marbella Thapa PharmD 230 [place] [address] Pharmacist Internal Medicine 07/06/24 documented as of this encounter
--- OUTSIDE RECORDS SUMMARY | 2024-08-13 14:14 | XMS_ITS | Encounter Summary ---
Author Organization [employer] Address 75 [facility] 7 [place] [address] Care Team Providers Care Order Packer Name Role Phone Nick Levy MD Primary Care Provider +1- [phone] Marbella Thapa PharmD Unavailable [phone] Encounter Details Date Type Department Care Team (Late st Contact Info) Description 05/27/2024 Telephone [facility] [address] [place] [address] Nick Levy MD 505 [place] [address] Social History Tobacco Use Types Packs/Day Years [...] line 05/27/24 at 2:39 PM Name of Caller/Facility:[facility] Wang Dowling Callback number: [phone] Reason for Call: Glucose 387 Message to be forwarded to Nick Levy MD and team nurses for follow up. documented in this encounter Plan of Treatment Upcoming Encounters Date Type Department Care Team (Late st Contact Info) Description 08/31/2024 9:30 AM EDT Medication Management [facility] [address] [place] [address] Marbella Thapa, PharmD 230 [place], [place] [phone] 10/19/2024 10:00 AM EDT Office Visit [facility] MED & PEDS [address] [place] [address] Nick Levy MD 505 [place] [address] documented as of this encounter Visit Diagnoses Not on filedocumented in this encounter Additional Health Concerns Assessment Noted Time PHQ-9 Depression Total Score: 11 023 11:31 AM EST documented as of this encounter Care Teams Order Packer Relationship Specialty Start Date End Date Nick Levy MD [address] [place] [address] PCP - General Internal Medicine 08/06/19 Marbella Thapa PharmD [address] [place] [address] Pharmacist Internal Medicine 07/06/24 documented as of this encounter
--- OUTSIDE RECORDS SUMMARY | 2024-08-13 14:14 | XMS_ITS | Encounter Summary ---
Author Organization [employer] Address 75 [facility] 7t [place] [address] Care Team Providers Care Wheel Lacer And Truer Name Role Phone Nick Levy MD Primary Care Provider +1- [phone] Marbella Thapa PharmD Unavailable [phone] Encounter Details Date Type Department Care Team (Latest Contact Info) Description 08/03/2024 Travel Social History Tobacco Use Types Packs/Day [...] Description 08/31/2024 9:30 AM EDT Medication Management [facility]EDS [address] [place] [address] Marbella Thapa PharmD 230 [place] [address] 10/19/2024 10:00 AM EDT Office Visit [facility] [address] [place] [address] Nick Levy MD 505 [place] [address] documented as of this encounter Visit Diagnoses Not on filedocumented in this encounter Additional Health Concerns Assessment Noted Time PHQ-9 Depression Total Score: 5 07/16/19 25 3:41 PM EST documented as of this encounter Care Teams Wheel Lacer And Truer Relationship Specialty Start Date End Date Nick Levy MD 505 [place] [address] PCP - General Internal Medicine 08/06/19 Marbella Thapa PharmD 230 [place] [address] Pharmacist Internal Medicine 07/06/24 documented as of this encounter
--- OUTSIDE RECORDS SUMMARY | 2024-08-13 14:14 | XMS_ITS | Encounter Summary ---
Author Organization [employer] Address [address] [place] [address] 7 [place] [address] Care Team Providers Care Metal Fabricating Shop Helper Name Role Phone Nick Levy MD Primary Care Provider Marbella Thapa PharmD Unavailable [phone] Encounter Details Date Type Department Care Team (Late Contact Info) Description 01/01/2023 Orders Only [facility] & PEDS [address] [place] [address] Nick Leyv MD 505 [place], [place] [phone] Low magnesium level (Primary Dx) Social History [...] Department Care Team (Late Contact Info) Description 08/31/2024 9:30 AM EDT Medication Management [facility] MED & PEDS [address] [place] [address] Marbella Thapa PharmD [address] [place] [address] 10/19/2024 10:00 AM EDT Office Visit [facility] MED & PEDS 505 [place] [address] Nick Levy MD 505 [place] [address] documented as of this encounter Visit Diagnoses Diagnosis Low magnesium level- Primary documented in this encounter Additional Health Concerns Assessment Noted Time PHQ-9 Depression Total Score: 3 12/28/19 23 12:20 PM EDT documented as of this encounter Care Teams Metal Fabricating Shop Helper Relationship Specialty Start Date End Date Nick Levy MD 505 [place] [address] PCP - General Internal Medicine 08/06/19 Marbella Thapa, AbhayD [address] [place] [address] Pharmacist Internal Medicine 07/06/24 documented as of this encounter
--- OUTSIDE RECORDS SUMMARY | 2024-08-13 14:14 | XMS_ITS | Encounter Summary ---
Author Organization [employer] Address [address] [place] [address] 7 [place] [address] Care Team Providers Care Spot Cleaner Name Role Phone Nick Levy MD Primary Care Provider [phone]- [phone] Marbella Thapa PharmD Unavailable [phone] Reason for Referral * Imaging (Routine) - Closed Specialty Diagnoses / Procedures Referred By Ana palma Referred To Contact Radiology Diagnoses Transaminitis Procedures US Abdomen Complete Nick Levy MD [address] [place] [address] Phone: tel: fax: [address] Phone: tel: fax: Referral ID Status Reason Start Date Expiration Date Visits Re quested Visits Authorized [id number] Closed 05/27/2024 05/27/2025 1 1 Encounter Details Date Type Department Care Team (Late st Contact Info) Description 05/27/2024 Orders Only [facility] & [facility]S [address] [place], [place] [phone] Nick Levy MD [address] [place] [address] Transaminitis (Primary Dx) Social History Tobacco Use [...] Description 08/31/2024 9:30 AM EDT Medication Management [facility] MED & PEDS [address] [place] [address] Marbella Thapa, PharmD 230 [place] [address] 10/19/2024 10:00 AM EDT Office Visit [facility] MED & PEDS [address] [place] [address] Nick Levy MD [address] [place] [address] documented as of this encounter Procedures Procedure Name Priority Date/Time Associated Diagnosis Comments US ABDOMEN COMPLETE Routine 06/19/2024 7 :48 AM EST Transaminitis documented in this encounter Results * US Abdomen Complete (06/19/2024 7:48 AM EST) Anatomical Region Laterality Modality Abdomen Ultrasound 06/19/2024 7:48 AM EST Narrative 06/19/2024 7:50 AM EST ? [facility] ?[address] ?[place] [address] ? Ultrasound Report ? Signed ? Patient: Yoan Burk ?MR#: [id number] ?? [id number] ? : 1970 ?Acct:[id number] ? Age/Sex: 54 / M ?ADM Date: 06/17/24 ? Loc: HO.US ? Attending Dr: Nick Levy MD ? Ordering Physician: Nick Levy MD ?? Date of Service: 06/17/24 ?? Procedure(s): US abdomen complete ?? Accession Number(s): [id number] ? cc: Nick Levy MD ? CLINICAL [...] OV> ?06/19/247[address] ? DD/ 7 ? TD/TT: 01/10/25 0748 ? Molder Helper: ? Procedure Note Geo, Image - 06/19/2024 [place] [address] Ultrasound Report Signed Patient: Yoan Burk KMR#: [id number] : 1970Acct:[id number] Age/Sex: 54 / MADM Date: 06/17/24 Loc: HO.US Attending Dr: Nick Levy MD Ordering Physician: Nick Levy MD Date of Service: 06/17/24 Procedure(s): US abdomen complete Accession Number(s): [id number] cc: Nick Levy MD CLINICAL HISTORY: Transaminitis [...] Schwartz MD in OV> 06/19/24 0749 DD/ 7 TD/TT: 06/19/24747 Molder Helper: us Nick Levy MD IMG US PROCEDURES Final Res ult documented in this encounter Visit Diagnoses Diagnosis Transaminitis- Primary Nonspecific elevation of levels of transaminase or lactic acid dehydrogenase (LDH) documented in this encounter Additional Health Concerns Assessment Noted Time PHQ-9 Depression Total Score: 11 05/14/ 023 11:31 AM EST documented as of this encounter Care Teams Spot Cleaner Relationship Specialty Start Date End Date Nick Levy MD [address] [place] [address] PCP - General Internal Medicine 08/06/19 Marbella Thapa PharmD [address] [place] [address] Pharmacist Internal Medicine 07/06/24 documented as of this encounter
--- OUTSIDE RECORDS SUMMARY | 2024-08-13 14:14 | XMS_ITS | Clinical Summary ---
Author Organization [facility] ity Address [address] [place] [address] Care Team Providers Care Certified Adaptive Physical Educator Name Role Phone Unavailable Primary Care Provider [...]
--- OUTSIDE RECORDS SUMMARY | 2024-08-13 14:14 | XMS_ITS | Encounter Summary ---
Author Organization [employer] Address [address] [facility] 7 [place] [address] Care Team Providers Care Painter Ordnance Name Role Phone Nick Levy MD Primary Care Provider +1- [phone] Marbella Thapa PharmD Unavailable [phone] Encounter Details Date Type Department Care Team (Late st Contact Info) Description 07/24/2024 Telephone [facility] 230 [place] [address] Nick Levy MD [address] [place] [address] Social History Tobacco Use Types Packs/Day Years [...] encounter Miscellaneous Notes * Telephone Encounter - Luc Domínguez - 07/24/2024 2:22 PM EST Tc from Kiana with [facility] regarding MRI Order for Shoulder stating that Pt requested for the MRI to be Covered by Workers Comp instead of his Insurance. She states that the Lab order was put on Workers comp but she received the LASHONDA from Health Insurance instead of Workers comp. Contact Kiana at [phone] documented in this encounter Plan of Treatment Upcoming Encounters Date Type Department Care Team ([facility] st Contact Info) Description 08/31/2024 9:30 AM EDT Medication Management [facility] MED & PEDS [address] [place] [address] Marbella Thapa, PharmD 230 [place] [address] 10/19/2024 10:00 AM EDT Office Visit [facility] MED & PEDS [address] [place] [address] Nick Levy MD [address] [place] [address] documented as of this encounter Visit Diagnoses Not on filedocumented in this encounter Additional Health Concerns Assessment Noted Time PHQ-9 Depression Total Score: 5 07/16/19 25 3:41 PM EST documented as of this encounter Care Teams Painter Ordnance Relationship Specialty Start Date End Date Nick Levy MD [address] [place] [address] PCP - General Internal Medicine 08/06/19 Marbella Thapa PharmD [address] [place] [address] Pharmacist Internal Medicine 07/06/24 documented as of this encounter
--- OUTSIDE RECORDS SUMMARY | 2024-08-13 14:14 | XMS_ITS | Encounter Summary ---
Author Organization [employer] Address [address] [place] [address] [place] [address] Care Team Providers Care Public Address Servicer Name Role Phone Nick Levy MD Primary Care Provider [phone]- [phone] Marbella Thapa PharmD Unavailable [phone] Reason for Referral * Consultation (Routine) - Closed Specialty Diagnoses / Procedures Referred By Ana palma Referred To Contact Behavioral Health Diagnoses Anxiety Nick Levy MD [address] [place] [address] Phone: tel: fax: Referral ID Status Reason Start Date Expiration Date V isits Requested Visits Authorized [id number] Closed Specialty Services Required 07/15/2024 07/15/2025 1 1 Reason for Visit * Reason Comments Diabetes Hypertension Encounter Details Date Type Department Care Team (Late st Contact Info) Description 07/15/2024 9:00 AM EST Office Visit [facility] PEDS [address] [place] [address] Nick Levy MD [address] [place] [address] Type 2 diabetes mellitus with hyperglycemia, without [...] Problem List Diagnosis Type 2 diabetes mellitus ([facility]) Methicillin resistant Staphylococcus aureus infection Chronic pain of left knee Hypertensive disorder Alcoholism ([facility]) Acute right-sided low back pain Left leg cellulitis Anxiety Severe episode of recurrent major depressive disorder, without psychotic features ([facility]) Stress-related problem 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 ([facility]) Acute pain of right shoulder Current Outpatient [...] g 2 Blood Glucose Monitoring Suppl (FreeStyle [place] Lite) w/Device kit TEST BLOOD SUGAR EVERY [...] hyperglycemia, without long-term current use of insulin ([facility]) Comments: Continue with the current regimen for [...] 9:30 AM EDT Medication Management [facility] MED & PEDS [address] [place] [address] Marbella Thapa PharmD [address] [place] [address] 10/19/2024 10:00 AM EDT Office Visit [facility] MED & PEDS [address] [place] [address] Nick Levy MD [address] [place] [address] Scheduled Referrals Name Type Priority Associated Diagnoses Order Schedule Referral to Behavioral Health Outpatient Referral Routine Anxiety Expected: 07/15/2024 (Approximate), Expires: 07/15/2025 documented as of this encounter Procedures Procedure Name Priority Date/Time Associated Diagnosis Comments POCT GLUCOSE Routine 07/15/2024 10:05 AM EST Type 2 diabetes mellitus with hyperglycemia, without long-term current use of insulin ([facility]) documented in this encounter Results * (ABNORMAL) POCT Glucose (07/15/2024 10:05 AM EST) Glucose Blood, POC 329(A) 60 - 200 mg/dL QC Media Lot # [id number] Comment:random Lot# Expiration Date 488,025 Blood Capillary blood specimen / Unknown 07/15/2024 10:05 AM EST Nick Levy MD POINT OF CARE TEST ENTER/ED IT ORDERABLES Final Result documented in this encounter Visit Diagnoses Diagnosis Type 2 diabetes mellitus with hyperglycemia, without long-term current use of insulin ([facility])- Primary Anxiety Anxiety state, unspecified Primary hypertension Unspecified essential hypertension documented in this encounter Additional Health Concerns Assessment Noted Time PHQ-9 Depression Total Score: 5 07/15/19 9:55 AM EST documented as of this encounter Care Teams Public Address Servicer Relationship Specialty Start Date End Date Nick Levy MD [address] [place] [address] PCP - General Internal Medicine 08/06/19 Marbella Thapa PharmD [address] [place] [address] Pharmacist Internal Medicine 07/06/24 documented as of this encounter
--- OUTSIDE RECORDS SUMMARY | 2024-08-13 14:14 | XMS_ITS | Encounter Summary ---
Author Organization [employer] Address 75 [facility] 7 [place] [address] Care Team Providers Care Glass Blower Name Role Phone Nick Levy MD Primary Care Provider [phone]- [phone] Marbella Thapa PharmD Unavailable [phone] Encounter Details Date Type Department Care Team (Late st Contact Info) Description 05/06/2023 Orders Only [facility] MED & PEDS [address] [place], [place] [phone] Nick Levy MD [address] [place], [place] [phone] Type 2 diabetes mellitus with hyperglycemia, without long-term current use of insulin ([facility]) (Primary Dx) Social History Tobacco [...] Description 08/31/2024 9:30 AM EDT Medication Management [facility] MED & PEDS [address] [place] [address] Marbella Thapa PharmD 230 [place] [address] 10/19/2024 10:00 AM EDT Office Visit [facility] MED & PEDS [address] [place] [address] Nick Levy MD [address] [place] [address] documented as of this encounter Visit Diagnoses Diagnosis Type 2 diabetes mellitus with hyperglycemia, without long-term current use of insulin ([facility])- Primary documented in this encounter Additional Health Concerns Assessment Noted Time PHQ-9 Depression Total Score: 3 12/28/19 23 12:20 PM EDT documented as of this encounter Care Teams Glass Blower Relationship Specialty Start Date End Date Nick Levy MD [address] [place] [address] PCP - General Internal Medicine 08/06/19 Marbella Thapa, Mey [address] [place] [address] Pharmacist Internal Medicine 07/06/24 documented as of this encounter
--- OUTSIDE RECORDS SUMMARY | 2024-08-13 14:14 | XMS_ITS | Encounter Summary ---
Author Organization [employer] Address 75 [facility] 7 [place] [address] Care Team Providers Care Manager Language Name Role Phone Nick Levy MD Primary Care Provider [phone]- [phone] Marbella Thapa PharmD Unavailable [phone] Reason for Visit * Reason Onset Date Comments Med Refill 04/22/2024 Encounter Details Date Type Department Care Team ([facility] st Contact Info) Description 04/22/2024 Refill [facility] MED & PEDS [address] [place] [address] Nick Levy MD [address] [place] [address] Social History Tobacco Use Types Packs/Day Years [...] Description 08/31/2024 9:30 AM EDT Medication Management [facility] MED & PEDS [address] [place] [address] Marbella Thapa PharmD [address] [place] [address] 10/19/2024 10:00 AM EDT Office Visit [facility] MED & PEDS [address] [place] [address] Nick Levy MD [address] [place] [address] documented as of this encounter Visit Diagnoses Not on filedocumented in this encounter Additional Health Concerns Assessment Noted Time PHQ-9 Depression Total Score: 11 023 11:31 AM EST documented as of this encounter Care Teams Manager Language Relationship Specialty Start Date End Date Nick Levy MD [address] [place] [address] PCP - General Internal Medicine 08/06/19 ThapaMarbella PharmD [address] [place] [address] Pharmacist Internal Medicine 07/06/24 documented as of this encounter
--- OUTSIDE RECORDS SUMMARY | 2024-08-13 14:14 | XMS_ITS | Encounter Summary ---
Author Organization [employer] Address 75 [facility] 7 [place] [address] Care Team Providers Care Fruit Grower Name Role Phone Nick Levy MD Primary Care Provider [phone]- [phone] Marbella Thapa PharmD Unavailable [phone] Reason for Visit * Reason Comments Med Refill Encounter Details Date Type Department Care Team (Late st Contact Info) Description 11/04/2022 Refill [facility] MEDICINE [address] [place], [place] [phone] Keena Martinez MD 230 [place], [place] [phone] Acute right-sided low back pain, unspecified whether [...] 9:30 AM EDT Medication Management [facility] MED & PEDS [address] [place] [address] Marbella Thapa PharmD [address] [place] [address] 10/19/2024 10:00 AM EDT Office Visit [facility] MED & PEDS [address] [place] [address] Nick Levy MD [address] [place] [address] documented as of this encounter Visit Diagnoses Diagnosis Acute right-sided low back pain, unspecified whether sciatica present documented in this encounter Care Teams Fruit Grower Relationship Specialty Start Date End Date Nick Levy MD [address] [place] [address] PCP - General Internal Medicine 08/06/19 Marbella Thapa PharmD [address] [place] [address] Pharmacist Internal Medicine 07/06/24 documented as of this encounter
== END 2024-08-13 11:44 | disposition home or self-care (01) ==
PROVIDERS: Emergency Provider Emergency Medicine; PCP Internal Medicine
DX: M79.644 Pain in right finger(s) (principal); Z79.899 Other long term (current) drug therapy
CPT/HCPCS: 73140; 99282; 99283

== ENCOUNTER → 2024-08-13 09:28 | Outpatient (BNV) | payer OTHER, SELFPAY | PROVIDERS: PCP Internal Medicine; Visit Provider Radiology Diagnostic Radiology | DX: R22.31 Localized swelling, mass and lump, right upper limb (principal) | CPT/HCPCS: 73140 ==

== ENCOUNTER 2024-09-08 10:08 | Outpatient (AMB) | payer OTHER, MEDICAID, SELFPAY ==
--- NOTE | 2024-09-08 10:21 | A.OFFVIS_ITS ---
Intake Visit Reasons: Right shoulder pain and weakness Intake Note: Yoan is a 54 year old right hand dominant male who presents today for evaluation of a right shoulder pain and weakness. The patient states that he fell onto his right shoulder while working on 07/02/2024. Denies any shoulder pain or weakness prior to that injury. Has tried [id number] exercises which seemed to aggravate his pain. He has also tried Tylenol and anti- inflammatory medicines which gave him minimal relief. Has not been able to return to work because of his pain and weakness. Allergies allopurinol [ALLOPURINOL] Allergy (Unknown, Verified 09/08/24 10:24) ANAPHYLAXIS, Throat Swelling, throat swelling lisinopril [LISINOPRIL] Allergy (Unknown, Verified 09/08/24 10:24) COUGH losartan Allergy (Unknown, Verified 09/08/24 10:24) diarrhea sulfamethoxazole [From Bactrim] Allergy (Verified 09/08/24 10:24) Unknown trimethoprim [From Bactrim] Allergy (Verified 09/08/24 10:24) Unknown From VICODIN Allergy (Unknown, Uncoded 09/08/24 10:24) ANAPHYLAXIS HYDROCODONE Allergy (Unknown, Uncoded 09/08/24 10:24) Shortness of Breath Hydrocodone-Acetaminophen Allergy (Unknown, Uncoded 09/08/24 10:24) shortness of breath Medication List - Last Reconciled 09/08/24 by Sb Comer MD albuterol sulfate 90 mcg/actuation inhalation atenolol 25 mg PO QAM beclomethasone dipropionate 40 mcg/actuation (Qvar RediHaler) inhalation blood sugar diagnostic (True Metrix Glucose Test Strip) As directed chlorthalidone 25 mg PO DAILY glipizide 10 mg PO BID loperamide mg PO lorazepam (Ativan) 1 mg PO ONCE PRN meloxicam 15 mg PO DAILY metformin 1,000 mg PO BID semaglutide (Ozempic) mg subcut simvastatin 40 mg PO BEDTIME [facility] Medical History Diabetes Surgical History Hx of cholecystectomy Hx of appendectomy Social History Alcohol intake: former Patient Tobacco Use Status: Never used Tobacco 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, 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 Physical Exam Const Other: Well-nourished well-developed very friendly male awake alert and oriented x3 in no acute distress Extrem Other: Right shoulder examination shows decreased active range of motion but full passive range of motion when compared to his left shoulder, 4/5 strength with supraspinatus testing, positive impingement signs, tenderness over his acromioclavicular joint, no instability Results Reviewed Results Reviewed: MRI of the patient's right shoulder from [facility] shows severe acromioclavicular joint narrowing, a type 2 acromion, a full-thickness tear of the supraspinatus tendon Assessment & Plan Assessment & Plan (1) Rotator cuff insufficiency of right shoulder: Code(s): M25.311 - Other instability, right shoulder Category: Medical Plan Mr. Burk presents with right shoulder pain and weakness due to impingement syndrome, acromioclavicular joint arthritis and a full-thickness rotator cuff tear. I had a lengthy discussion with the patient regarding the treatment options. The risks and benefits of right shoulder surgery were discussed at length with the patient. The patient wishes to proceed with surgery. Surgery will involve right shoulder diagnostic arthroscopy with distal clavicle excision, acromioplasty and rotator cuff repair. The patient will be scheduled for next available date. He will remain out of work until he has recovered fully from his surgery. He will follow-up as instructed. Feel free to call me at any time should questions regarding his orthopedic management arise. I spent 22 minutes in reviewing the patient's records and imaging studies, seeing the patient and documenting in the medical record. Coding Level of Care Code Est Pt Level 3 (38158) Complex EM visit Add On G2211 Diagnoses Rotator cuff insufficiency of right shoulder M25.311
--- OUTSIDE RECORDS SUMMARY | 2024-09-08 11:50 | XMS_ITS | Encounter Summary ---
Author Organization [employer] Address [address] [place] [address] Care Team Providers Care [employer] Name Role Phone Nick Levy MD Primary Care Provider [phone] Marbella Thapa PharmD Unavailable [phone] Reason for Visit * Reason Onset Date Comments Med Refill 04/22/2024 Encounter Details Date Type Department Care Team ([facility] st Contact Info) Description 04/22/2024 Refill [facility] [address] [place] [address] Nick Levy MD [address] [place] [address] Social History Tobacco Use Types Packs/Day Years [...] Care Team (Late st Contact Info) Description 09/11/2024 9:30 AM EDT Medication Management [facility] [address] [place] [address] Marbella Thapa, PharmD [address] [place] [address] 09/16/2024 3:45 PM EDT Office Visit [facility] [address] [place] [address] Nick Levy MD [address] [place] [address] 10/19/2024 10:00 AM EDT Office Visit [facility] [address] [place] [address] Nick Levy MD [address] [place] [address] documented as of this encounter Visit Diagnoses Not on filedocumented in this encounter Additional Health Concerns Assessment Noted Time PHQ-9 Depression Total Score: 11 023 11:31 AM EST documented as of this encounter Care Teams [employer] Relationship Specialty Start Date End Date Nick Levy MD [address] [place] [address] PCP - General Internal Medicine 08/06/19 Marbella Thapa PharmD [address] [place] [phone] Pharmacist Internal Medicine 07/06/24 documented as of this encounter
--- OUTSIDE RECORDS SUMMARY | 2024-09-08 11:50 | XMS_ITS | Clinical Summary ---
Author Organization [employer] Address [address] [place] [address] Care Team Providers Care Supervisor Painting [employer] Name Role Phone Nick Levy MD Primary Care Provider [phone] Marbella Thapa PharmD Unavailable [phone] Allergies Active Allergy Reactions Criticality Noted Date [...] 2 diabetes mellitus without complication, unspecified whether assisted insulin use ([facility]) TAKE 2 TABLETS BY MOUTH EVERY MORNING AND EVERY EVENING WITH MEALS 360 tablet 3 10/17/19 24 Active atenolol (Tenormin) 25 MG tabletIndicatio ns:Primary hypertension TAKE 1 TABLET BY MOUTH EVERY MORNING 90 tablet 3 10/24/19 24 Active chlorthalidone (Hygroton) 25 MG tabletIndicatio ns:Primary hypertension TAKE 1 TABLET(25 MG) BY MOUTH IN THE MORNING 90 tablet 3 10/24/19 24 Active loperamide (Imodium) 2 MG capsule TAKE ONE CAPSULE THREE TIMES DAILY NEEDED 30 capsule 04/24/20 24 Active simvastatin (Zocor) 40 MG tabletIndicatio ns:Type 2 diabetes mellitus without complication, unspecified whether adjunct faculty for medical terminology insulin use (CMS/HCC) TAKE ONE TABLET BY [...] 25 Active Blood Glucose Monitoring Suppl (FreeStyle [place] Lite) w/Device kit Test blood sugar daily 1 kit 08/03/19 25 Active glucose blood test strip Test blood sugar daily 100 each 11 08/03/19 25 026 Active TRUEplus Lancets 33G misc Test blood sugar daily 100 each 08/03/19 25 Active traMADol (Ultram) 50 MG tabletIndicatio ns:Acute pain of right shoulder Take 1 tablet (50 mg) by mouth at bedtime for 15 days. 15 tablet 08/29/19 25 025 Active glipiZIDE (Glucotrol) 10 MG tabletIndicatio ns:Type 2 diabetes mellitus without complication, unspecified whether adjunct faculty for medical terminology insulin use (CMS/HCC) Take 1 tablet (10 mg) by mouth 2 times daily. 180 tablet 3 09/04/19 25 Active glipiZIDE (Glucotrol) 10 MG tabletIndicatio ns:Type 2 diabetes mellitus without complication, unspecified whether adjunct faculty for medical terminology insulin use (CMS/HCC) TAKE 1 TABLET(10 MG) BY MOUTH TWICE DAILY 180 tablet 3 11/22/19 24 025 Discontinued(Re order (will not trigger notification to Pharmacy)) predniSONE (Deltasone) 20 MG tablet Take 1 tablet (20 mg) by mouth Once per day for 5 days. 5 tablet 08/29/19 25 025 Active Problems Problem Noted Date Diagnosed Date [...] Declined CM referral. At this time Yoan Hoguemew meets criteria for Visit Diagnoses: Problem List Items Addressed This Visit Other Anxiety Severe episode of recurrent major depressive disorder, without psychotic features (CMS/HCC) Stress-related problem Patient ready to address current needs Yes Strengths include awareness of the problem and motivation to change. PLAN: 1. Follow up with [facility]: Not recommended for follow-up 2. Patient goal [...] to change. PLAN: 1. Follow up with [facility]: Not recommended for follow-up 2. Patient goal [...] CM referral. At this time Yoan Danny Mccracken Wm meets criteria for Visit Diagnoses: Problem List Items Addressed This Visit Other Anxiety Severe episode of recurrent major depressive disorder, without psychotic features (CMS/HCC) Stress-related problem Patient ready to address current needs Yes Strengths include awareness of the problem and motivation to change. PLAN: 1. Follow up with [facility]: Not recommended for follow-up 2. Patient goal [...] organization. Date Type Department Care Team Description 09/04/2024 Telephone [facility] [address] [place] [address] Marbella Thapa PharmD Prior Authorization 09/02/2024 Refill [facility] [address] [place] [address] Keena Martinez MD Type 2 diabetes mellitus without complication, unspecified whether assisted insulin use (CMS/HCC) 08/31/2024 Travel 08/28/2024 9:00 AM EDT Office Visit [facility] [address] [place] [address] Arlene Hardin MD Acute pain of right shoulder (Primary Dx) 08/28/2024 Travel 08/26/[address] [address] Nick Levy MD Nurse Triage 08/21/[address] [address] Nick Levy MD Lab Orders 08/19/[address] [address] Nick Levy MD 08/19/[address] [address] Nick Levy MD FYI 08/13/2024 Orders Only [facility] External Provider, [facility] 08/03/2024 Travel 07/24/[address] [address] Nick Levy MD 07/15/2024 9:00 AM EST Office Visit [facility] [address] [place] [address] Nick Levy MD Type 2 diabetes mellitus with hyperglycemia, without long-term current use of insulin ([facility]) (Primary Dx); Anxiety; Primary hypertension 07/15/2024 Travel 07/13/2024 9:20 AM EST Office Visit [facility] [address] [place] [address] Lisset Caldwell NP Acute pain of right shoulder (Primary Dx) 07/06/2024 Travel 07/03/2024 Orders Only [facility] External Provider, [facility] 06/19/2024 Telephone [facility] [address] [place] [address] Nick Levy MD 06/12/2024 Refill [facility] [address] [place] [address] Nick Levy MD from Last 3 Months Immunizations Name Administration [...] Sign Reading Time Taken Comments Blood Pressure 142/89 08/28/2024 9:11 AM EDT Pulse 93 08/28/2024 9:11 AM EDT Temperature 36.2 ??C (97.1 ??F) 08/28/2024 9:11 AM ED T Respiratory Rate 18 08/28/2024 9:11 AM EDT Oxygen Saturation 98% 08/28/2024 9:11 AM EDT Inhaled Oxygen Concentration - - Weight 78 kg (172 lb) 08/28/2024 9:11 AM EDT Height 170.2 cm (5' 7 ) 08/28/2024 9:11 AM EDT Body Mass Index 26.94 08/28/2024 9:11 AM EDT Plan of Treatment Upcoming Encounters Date Type Department Care Team (Late st Contact Info) Description 09/11/2024 9:30 AM EDT Medication Management [facility] MED [facility]S [address] [place] [address] Marbella Thapa, PharmD [address] [place] [address] 09/16/2024 3:45 PM EDT Office Visit [facility] MED [facility] P[facility] [address] [place] [address] Nick Levy MD [address] [place] [address] 10/19/2024 10:00 AM EDT Office Visit [facility] [address] [place] [address] Nick Levy MD [address] [place] [address] Health Maintenance Due Date Last Done Comments [...] Screening 07/15/2025 07/15/2024 SDOH Screening 07/15/2025 07/15/2024 Depression Screening 07/16/2025 07/16/2024, 07/16/19 25 Tobacco Screening 08/28/2025 08/28/2024 DTaP/Tdap/Td Vaccines (2 - Td or Tdap) [...] Procedure Name Priority Date/Time Associated Diagnosis Comments MR SHOULDER WO CONTRAST RIGHT Urgent 08/24/2024 Acute pain of right shoulder XR FINGERS 2+ VIEWS RIGHT Routine 08/13/2024 [...] Routine 06/19/2024 7 :48 AM EST Transaminitis HEPATITIS C AB W/REFL TO HCV RNA, QN, PCR Routine 05/27/2024 10:31 AM EST Type 2 diabetes mellitus with hyperglycemia, without long-term current use of insulin (CMS/HCC) Primary hypertension LIPID PANEL, STANDARD Routine 05/27/2024 10:31 AM EST Type 2 diabetes mellitus with hyperglycemia, without long-term current use of insulin (CMS/HCC) Primary hypertension POCT GLYCATED HEMOGLOBIN, TOTAL Routine 05/27/2024 9:31 AM EST Type 2 diabetes mellitus with hyperglycemia, without long-term current use of insulin (CMS/HCC) BITEWING - SINGLE RADIOGRAPHIC IMAGE Routine 04/21/2024 9:00 AM EST ALBUMIN, RANDOM URINE W/CREATININE Routine 12/31/2022 10:19 AM EDT from Last 3 Months or Most Recently Relevant to Health Maintenance Results * MR Shoulder w/o Contrast Right (08/24/2024) Anatomical Region Laterality Modality Upper Extremities, Shoulder Right Magn etic Resonance us Lisset Caldwell NP IMG MRI PROCEDURES Final Result * XR Fingers 2+ Views Right (08/13/2024 9:28 AM EST) Anatomical Region Laterality Modality Upper Extremities, Fingers Right Radio graphic Imaging 08/13/2024 9:28 AM EST Narrative 08/13/2024 9:50 AM EST ? [facility] ?[address] ?[place] [address] ?XRay Report ? Signed ? Patient: Wm,Yoan K ?MR#: [id number] ?? [id number] ? : 1970 ?Acct:[id number] ? Age/Sex: 54 / M ?ADM Date: 08/13/24 ? Loc: HO.ED ? Attending Dr: ? Ordering Physician: Generic ED Physician ?? Date of Service: 08/13/24 ?? Procedure(s): XR finger RT min 2V ?? Accession Number(s): [id number] ? cc: Nick Levy MD; Generic ED [...] 08/13/24 0948 ? DD/ 7 ? TD/TT: 08/13/24 09 ? [employer]: ? Procedure Note Donotarnoldter, Image - 08/13/[address] [address] XRay Report Signed Patient: Yoan Burk KMR#: [id number] : 1970Acct:[id number] Age/Sex: 54 / MADM Date: 08/13/24 Loc: HO.ED Attending Dr: Ordering Physician: Generic ED Physician Date of Service: 08/13/24 Procedure(s): XR finger RT min 2V Accession Number(s): [id number] cc: Nick Levy MD; Generic ED Physician [...] by Sammy Mcrae MDin OV> 08/13/2448 DD/ TD/TT: 08/13/24 0934 [employer]: [facility] External Provider IMG XR PROCEDURES Final Result * (ABNORMAL) POCT Glucose (07/15/2024 10:05 AM EST) Glucose Blood, POC 329(A) 60 - 200 mg/dL QC Media Lot # [id number] Comment:random Lot# Expiration Date 48, Blood Capillary blood specimen / Unknown 07/15/2024 10:05 AM EST us Nick Levy MD POINT OF CARE TEST ENTER/ED IT ORDERABLES Final Result * XR Wrist 1-2 Views Right (07/03/2024 11:00 AM EST) Anatomical Region Laterality Modality Upper Extremities, Wrist Right Radiogr aphic Imaging 07/03/2024 11:0 0 AM EST Narrative 07/03/2024 11:23 AM EST ? [facility] ?[address] ?[place] [address] ?XRay Report ? Signed ? Patient: Daryl Burkph Danny ?MR#: [id number] ?? [id number] ? : 1970 ?Acct:[id number] ? Age/Sex: 54 / M ?ADM Date: 07/03/24 ? Loc: HO.ED ? Attending Dr: ? Ordering Physician: Generic ED Physician ?? Date of Service: 07/03/24 ?? Procedure(s): XR wrist RT 2V ?? Accession Number(s): [id number] ? cc: Nick Levy MD; Generic ED [...] DD/ 1100 ? TD/TT: 07/03/24 1100 ? [employer]: ? Procedure Note Geo, Image - 07/03/[address] [address] XRay Report Signed Patient: Yoan Burk KMR#: [id number] : 1970Acct:[id number] Age/Sex: 54 / MADM Date: 07/03/24 Loc: .ED Attending Dr: Ordering Physician: Generic ED Physician Date of Service: 07/03/24 Procedure(s): XR wrist RT 2V Accession Number(s): [id number] cc: Nick Levy MD; Generic ED Physician [...] 07/03/24 1121 DD/ 1100 TD/TT: 07/03/24 1100 [employer]: [facility] External Provider IMG XR PROCEDURES Final Result * XR Elbow 1-2 Views Right (07/03/2024 11:00 AM EST) Anatomical Region Laterality Modality Upper Extremities, Elbow Right Radiogr aphic Imaging 07/03/2024 11:0 0 AM EST Narrative 07/03/2024 11:22 AM EST ? [facility] ?[address] ?[place] [address] ?XRay Report ? Signed ? Patient: [place],Yoan K ?MR#: [id number] ?? [id number] ? : 1970 ?Acct:[id number] ? Age/Sex: 54 / M ?ADM Date: 01/24/25 ? Loc: HO.ED ? Attending Dr: ? Ordering Physician: Generic ED Physician ?? Date of Service: 07/03/24 ?? Procedure(s): XR elbow RT 2V ?? Accession Number(s): [id number] ? cc: Nick Levy MD; Generic ED [...] DD/ 1100 ? TD/TT: 07/03/24 1100 ? [employer]: ? Procedure Note Geo, Image - 07/03/2024 [place] [address] XRay Report Signed Patient: Yoan Burk KMR#: [id number] : 1970Acct:[id number] Age/Sex: 54 / MADM Date: 07/03/24 Loc: HO.ED Attending Dr: Ordering Physician: Generic ED Physician Date of Service: 07/03/24 Procedure(s): XR elbow RT 2V Accession Number(s): [id number] cc: Nick Levy MD; Generic ED Physician [...] 07/03/24 1119 DD/ 1100 TD/TT: 07/03/24 1100 [employer]: [facility] External Provider IMG XR PROCEDURES Final Result * XR Shoulder 2+ Views Right (07/03/2024 10:50 AM EST) Anatomical Region Laterality Modality Upper Extremities, Shoulder Right Radi ographic Imaging 07/03/2024 10:5 0 AM EST Narrative 07/03/2024 11:26 AM EST ? [facility] ?[address] ?[place] [address] ?XRay Report ? Signed ? Patient: Wm,Yoan K ?MR#: [id number] ?? [id number] ? : 1970 ?Acct:[id number] ? Age/Sex: 54 / M ?ADM Date: 07/03/24 ? Loc: HO.ED ? Attending Dr: ? Ordering Physician: Generic ED Physician ?? Date of Service: 07/03/24 ?? Procedure(s): XR shoulder RT min 2V ?? Accession Number(s): [id number] ? cc: Nick Levy MD; Generic ED [...] DD/ 1050 ? TD/TT: 07/03/24 1100 ? [employer]: ? Procedure Note Donananyater, Image - 07/03/[address] [address] XRay Report Signed Patient: Yoan Burk KMR#: [id number] : 1970Acct:[id number] Age/Sex: 54 / MADM Date: 07/03/24 Loc: HO.ED Attending Dr: Ordering Physician: Generic ED Physician Date of Service: 07/03/24 Procedure(s): XR shoulder RT min 2V Accession Number(s): [id number] cc: Nick Levy MD; Generic ED Physician [...] signed by Wesley Shaffer MD in OV> 01/24/25 1124 DD/ 1050 TD/TT: 07/03/24 1100 [employer]: us [facility] External Provider IMG XR PROCEDURES Final Result * XR Lumbar Spine 2-3 Views (07/03/2024 10:50 AM EST) Anatomical Region Laterality Modality Spine, L-spine Radiographic Kyara ging 07/03/2024 10:5 0 AM EST Narrative 07/03/2024 11:29 AM EST ? [facility] ?[address] ?[place], [place] [address] ?XRay Report ? Signed ? Patient: Yoan Burk ?MR#: [id number] ?? [id number] ? : 1970 ?Acct:[id number] ? Age/Sex: 54 / M ?ADM Date: 07/03/24 ? Loc: HO.ED ? Attending Dr: ? Ordering Physician: Generic ED Physician ?? Date of Service: 07/03/24 ?? Procedure(s): XR lumbar spine 2-3V ?? Accession Number(s): [id number] ? cc: Nick Levy MD; Generic ED [...] DD/ 1050 ? TD/TT: 07/03/24 1100 ? [employer]: ? Procedure Note Donotuseinterpreter, Image - 07/03/[address] [address] XRay Report Signed Patient: Yoan Burk KMR#: [id number] : 1970Acct:[id number] Age/Sex: 54 / MADM Date: 07/03/24 Loc: HO.ED Attending Dr: Ordering Physician: Generic ED Physician Date of Service: 07/03/24 Procedure(s): XR lumbar spine 2-3V Accession Number(s): [id number] cc: Nick Levy MD; Generic ED Physician [...] 07/03/24 1126 DD/ 1050 TD/TT: 07/03/24 1100 [employer]: us [facility] External Provider IMG XR PROCEDURES Final Result * US Abdomen Complete (06/19/2024 7:48 AM EST) Anatomical Region Laterality Modality Abdomen Ultrasound 06/19/2024 7:48 AM EST Narrative 06/19/2024 7:50 AM EST ? [facility] ?[address] ?[place] [address] ? Ultrasound Report ? Signed ? Patient: Wm,Yoan K ?MR#: [id number] ?? [id number] ? : 1970 ?Acct:[id number] ? Age/Sex: 54 / M ?ADM Date: 06/17/24 ? Loc: HO.US ? Attending Dr: Nick Levy MD ? Ordering Physician: Nick Levy MD ?? Date of Service: 06/17/24 ?? Procedure(s): US abdomen complete ?? Accession Number(s): [id number] ? cc: Nick Levy MD ? CLINICAL [...] on ?? 06/19/2024 07:48:14 ? Dictated By: ?Bodne,Isiah MD ? Signed By: ?<Electronically signed by Isiah Schwartz MD in OV> ?06/19/[address] ? DD/ 7 ? TD/TT: 06/19/24747 ? [employer]: ? Procedure Note Rainer Guardado - 06/19/[address] [address] Ultrasound Report Signed Patient: Yoan Burk KMR#: [id number] : 1970Acct:[id number] Age/Sex: 54 / MADM Date: 06/17/24 Loc: HO.US Attending Dr: Nick Levy MD Ordering Physician: Nick Levy MD Date of Service: 06/17/24 Procedure(s): US abdomen complete Accession Number(s): [id number] cc: Nick Levy MD CLINICAL HISTORY: Transaminitis [...] 06/19/24 0749 DD/ 0748 TD/TT: 06/19/24 0748 [employer]: Nick Levy MD IMG US PROCEDURES Final Res ult * Hepatitis C Antibody with Reflex to HCV, RNA, Quantitative, Real-Time PCR (05/27/2024 10:31 AM EST) Hepatitis C Antibody Nonreactive Nonreactive [facility] Comment:Antibodies to HCV no t detected; does not exclude early acuteHCV infection. Blood Venous blood specimen / Unknown 05/27/2024 10:31 AM EST 05/27/2024 2:06 PM EST Nick Levy MD LAB BLOOD ORDERABLES Final Result [facility] [address] [place] [address] [phone] * (ABNORMAL) Lipid Panel, Standard (05/27/2024 10:31 AM EST) Triglycerides 133 <150 mg/dL [facility] Comment:Desirable Triglyceri de: less than 150 mg/dLBorderline High Triglyceride 150-199 mg/dLHigh Triglyceride: 200-499 mg/dLVery High Triglyceride: greater than or equal to 5OO mg/dL Cholesterol 110 <200 mg/dL [facility] Comment:Desirable Cholestero l: less than 200 mg/dLBorderline High Cholesterol: 200-239 mg/dLHigh Cholesterol: greater than 239 mg/dL LDL Cholesterol Calculated 52 <100 mg/dL [facility] Comment:Desirable LDL: less than 100 mg/dLNear Optimal/Above Optimal LDL: 110- 129 mg/dLBorderline High LDL: 130-159 mg/dLHigh LDL: 160-189 mg/dLVery High LDL: greater than or equal to 190 mg/dL HDL Cholesterol 32(L) >40 mg/dL [facility] Comment:Desirable HDL: great er than 40 mg/dL Note: This HDL assay may give artificially low results in patients with liver disease. Blood Venous blood specimen / Unknown 05/27/2024 10:31 AM EST 05/27/2024 2:06 PM EST Nick Levy MD LAB BLOOD ORDERABLES Final Result [facility] [address] [place] [address] [phone] * (ABNORMAL) POCT HGB A1C (05/27/2024 9:31 AM EST) Hemoglobin A1C 11.3(A) 4.0 - 6.0 % QC Media Lot # [id number] Lot# Expiration Date [id number] Blood 05/27/2024 9:31 AM EST us Nick Levy MD POINT OF CARE TEST ENTER/ED IT ORDERABLES Final Result * Albumin, Random Urine W/Creatinine (12/31/2022 10:19 AM EDT) Creatinine, Urine 198.54 mg/dL [facility] Microalbumin Urine 15.0 mg/L [facility] Microalbum Creatinine Ratio Ur 7.5 ug/mg cr [facility] Comment:Albumin/Creatinine R atio Reference Ranges: Normal: < 30 ug/mg creatinine Microalbuminuria: 30 - 300 ug/mg creatinineClinical Albuminuria: > 300 ug/mg creatinine 12/31/2022 10:1 9 AM EDT 12/31/2022 2:13 PM EDT us Nick Levy MD LAB URINE ORDERABLES Final Result [facility] [address] [place] [address] [phone] from Last 3 Months or Most Recently Relevant to Health Maintenance Insurance [facility] C3 DENTAL - HSN FULL (MEDICAID) [employer] Care Teams Supervisor [employer]ting [employer] Relationship Specialty Start Date End Date Nick Levy MD [address] [place] [phone] PCP - General Internal Medicine 08/06/19 Marbella Thapa PharmD [address] [place] [phone] Pharmacist Internal Medicine 07/06/24
--- OUTSIDE RECORDS SUMMARY | 2024-09-08 11:50 | XMS_ITS | Encounter Summary ---
Author Organization [employer] Address [address] [facility] 7 [place] [address] Care Team Providers Care Cnc Mill Set Up Operator Name Role Phone Nick Levy MD Primary Care Provider [phone] Marbella Thapa PharmD Unavailable [phone] Encounter Details Date Type Department Care Team (Late st Contact Info) Description 05/27/2024 Telephone [facility] [address] [place] [address] Nick Levy MD [address] [place] [address] Social History Tobacco Use Types Packs/Day Years [...] line 05/27/24 at 2:39 PM Name of Caller/Facility:[facility] [place] Callback number: [phone] Reason for Call: Glucose 387 Message to be forwarded to Nick Levy MD and team nurses for follow up. documented in this encounter Plan of Treatment Upcoming Encounters Date Type Department Care Team (Late st Contact Info) Description 09/11/2024 9:30 AM EDT Medication Management [facility] [address] [place] [address] Marbella Thapa, PharmD [address] [place], [place] [phone] 09/16/2024 3:45 PM EDT Office Visit [facility] [address] [place] [address] Nick Levy MD [address] [place] [address] 10/19/2024 10:00 AM EDT Office Visit [facility] [address] [place] [address] Nick Levy MD [address] [place] [address] documented as of this encounter Visit Diagnoses Not on filedocumented in this encounter Additional Health Concerns Assessment Noted Time PHQ-9 Depression Total Score: 11 023 11:31 AM EST documented as of this encounter Care Teams Cnc Mill Set Up Operator Relationship Specialty Start Date End Date Nick Levy MD [address] [place] [address] PCP - General Internal Medicine 08/06/19 Marbella Thapa PharmD [address] [place] [address] Pharmacist Internal Medicine 07/06/24 documented as of this encounter
--- OUTSIDE RECORDS SUMMARY | 2024-09-08 11:50 | XMS_ITS | Encounter Summary ---
Author Organization [employer] Address [address] [place] [address] [address] [place] [address] Care Team Providers Care Set Up Operator Tool Name Role Phone Nick Levy MD Primary Care Provider [phone] Marbella Thapa PharmD Unavailable [phone] Reason for Referral * Imaging (Routine) - Closed Specialty Diagnoses / Procedures Referred By Ana palma Referred To Contact Radiology Diagnoses Transaminitis Procedures US Abdomen Complete Nick Levy MD [address] [place] [address] Phone: tel: fax: [address] Phone: tel: fax: Referral ID Status Reason Start Date Expiration Date Visits Re quested Visits Authorized [id number] Closed 05/27/2024 05/27/2025 1 1 Encounter Details Date Type Department Care Team (Late st Contact Info) Description 05/27/2024 Orders Only [facility] [address] [place], [place] [phone] Nick Levy MD [address] [place] [address] Transaminitis (Primary Dx) Social History Tobacco Use [...] Description 09/11/2024 9:30 AM EDT Medication Management [facility] [address] [place] [address] Marbella Thapa, PharmD [address] [place] [address] 09/16/2024 3:45 PM EDT Office Visit [facility] [address] [place] [address] Nick Levy MD [address] [facility] [place] [address] 10/19/2024 10:00 AM EDT Office Visit [facility] [address] [place] [address] Nick Levy MD [address] [facility] [place] [address] documented as of this encounter Procedures Procedure Name Priority Date/Time Associated Diagnosis Comments US ABDOMEN COMPLETE Routine 06/19/2024 7 :48 AM EST Transaminitis documented in this encounter Results * US Abdomen Complete (06/19/2024 7:48 AM EST) Anatomical Region Laterality Modality Abdomen Ultrasound 06/19/2024 7:48 AM EST Narrative 06/19/2024 7:50 AM EST ? [facility] ?[address] ?[place] [address] ? Ultrasound Report ? Signed ? Patient: Yoan Burk ?MR#: [id number] ?? [id number] ? : 1970 ?Acct:[id number] ? Age/Sex: 54 / M ?ADM Date: 06/17/24 ? Loc: HO.US ? Attending Dr: Nick Levy MD ? Ordering Physician: Nick Levy MD ?? Date of Service: 06/17/24 ?? Procedure(s): US abdomen complete ?? Accession Number(s): [id number] ? cc: Nick Levy MD ? CLINICAL [...] MD in OV> ?06/19/24 0749 ? DD/ 7 ? TD/TT: 06/19/24747 ? Echocardiologist: ? Procedure Note Donotuseinterpreter, Image - 06/19/2024 [place] [address] Ultrasound Report Signed Patient: Yoan Burk KMR#: [id number] : 1970Acct:[id number] Age/Sex: 54 / MADM Date: 06/17/24 Loc: HO.US Attending Dr: Nick Levy MD Ordering Physician: Nick Levy MD Date of Service: 06/17/24 Procedure(s): US abdomen complete Accession Number(s): [id number] cc: Nick Levy MD CLINICAL HISTORY: Transaminitis [...] OV> 06/19/24 0749 DD/ 7 TD/TT: 06/19/24747 Echocardiologist: us Nick Levy MD IMG US PROCEDURES Final Res ult documented in this encounter Visit Diagnoses Diagnosis Transaminitis- Primary Nonspecific elevation of levels of transaminase or lactic acid dehydrogenase (LDH) documented in this encounter Additional Health Concerns Assessment Noted Time PHQ-9 Depression Total Score: 11 023 11:31 AM EST documented as of this encounter Care Teams Set Up Operator Tool Relationship Specialty Start Date End Date Nick Levy MD [address] [place] [address] PCP - General Internal Medicine 08/06/19 Marbella Thapa PharmD [address] [place] [address] Pharmacist Internal Medicine 07/06/24 documented as of this encounter
--- OUTSIDE RECORDS SUMMARY | 2024-09-08 11:51 | XMS_ITS | Encounter Summary ---
Author Organization [employer] Address [address] [facility] 7 [place] [address] Care Team Providers Care Straddle Buggy Operator Name Role Phone Nick Levy MD Primary Care Provider [phone]- [phone] Marbella Thapa PharmD Unavailable [phone] Reason for Visit * Reason Onset Date Comments FYI 08/19/2024 Encounter Details Date Type Department Care Team (Late st Contact Info) Description 08/19/2024 Telephone [facility] MEDICINE [address] [place] [address] Nick Levy MD [address] [place] [address] FY Social History Tobacco Use Types Packs/Day Years [...] encounter Miscellaneous Notes * Telephone Encounter - Azalea Allen - 08/19/2024 11:02 AM EDT Tc from Marita with [facility] stating can't schedule for MRI because they needs workers comp authorization . documented in this encounter Plan of Treatment Upcoming Encounters Date Type Department Care Team ([facility] st Contact Info) Description 09/11/2024 9:30 AM EDT Medication Management [facility] MED & PEDS [address] [place] [address] Marbella Thapa, PharmD 230 [place] [address] 09/16/2024 3:45 PM EDT Office Visit [facility] P[facility] [address] [place] [address] Nick Levy MD [address] [place] [address] 10/19/2024 10:00 AM EDT Office Visit [facility] [address] [place] [address] Nick Levy MD [address] [place] [address] documented as of this encounter Visit Diagnoses Not on filedocumented in this encounter Additional Health Concerns Assessment Noted Time PHQ-9 Depression Total Score: 5 07/16/19 25 3:41 PM EST documented as of this encounter Care Teams Straddle Buggy Operator Relationship Specialty Start Date End Date Nick Levy MD [address] [place] [address] PCP - General Internal Medicine 08/06/19 Marbella Thapa PharmD [address] [place] [address] Pharmacist Internal Medicine 07/06/24 documented as of this encounter
--- OUTSIDE RECORDS SUMMARY | 2024-09-08 11:51 | XMS_ITS | Clinical Summary ---
Author Organization [facility] ity Address [address] [place] [address] Care Team Providers Care Automation Controls Expert Name Role Phone Unavailable Primary Care Provider [...]
--- OUTSIDE RECORDS SUMMARY | 2024-09-08 11:51 | XMS_ITS | Encounter Summary ---
Author Organization [employer] Address 75 [facility] 7 [place] [address] Care Team Providers Care Cost Accounting Analyst Name Role Phone Nick Levy MD Primary Care Provider [phone]- [phone] Marbella Thapa PharmD Unavailable [phone] Reason for Visit * Reason Onset Date Comments Prior Authorization 09/04/2024 Encounter Details Date Type Department Care Team (Late st Contact Info) Description 09/04/2024 Telephone [facility] MED & PEDS [address] [place] [address] Marbella Thapa, PharmD [address] [place] [address] Prior Authorization Social History Tobacco Use Types Packs/Day Years [...] encounter Miscellaneous Notes * Telephone Encounter - Marbella Thapa PharmD - 09/04/2024 9:15 AM EDT Patient now has [facility] (change from [facility]), [facility] requiring a prior authorization. Submitted PA, patient aware. documented in this encounter Plan of Treatment Upcoming Encounters Date Type Department Care Team (Late st Contact Info) Description 09/11/2024 9:30 AM EDT Medication Management [facility] MED & PEDS [address] [place] [address] Marbella Thapa, AhbayD [address] [place] [address] 09/16/2024 3:45 PM EDT Office Visit [facility] MED & PEDS [address] [place] [address] Nick Levy MD [address] [place] [address] 10/19/2024 10:00 AM EDT Office Visit [facility]EDS [address] [place] [address] Nick Levy MD [address] [place] [address] documented as of this encounter Visit Diagnoses Not on filedocumented in this encounter Additional Health Concerns Assessment Noted Time PHQ-9 Depression Total Score: 5 07/16/19 25 3:41 PM EST documented as of this encounter Care Teams Cost Accounting Analyst Relationship Specialty Start Date End Date Nick Levy MD [address] [place] [address] PCP - General Internal Medicine 08/06/19 Marbella Thapa PharmD [address] [place] [address] Pharmacist Internal Medicine 07/06/24 documented as of this encounter
--- OUTSIDE RECORDS SUMMARY | 2024-09-08 11:51 | XMS_ITS | Encounter Summary ---
Author Organization [employer] Address 75 [facility] 7 [place] [address] Care Team Providers Care Utility Aircrewman Name Role Phone Nick Levy MD Primary Care Provider [phone]- [phone] Marbella Thapa PharmD Unavailable [phone] Reason for Visit * Reason Onset Date Comments Nurse Triage 08/26/2024 Encounter Details Date Type Department Care Team (Late st Contact Info) Description 08/26/2024 Telephone [facility] MEDICINE [address] [place] [address] Nick Levy MD [address] [place] [address] Nurse Triage Social History Tobacco Use Types Packs/Day Years [...] encounter Miscellaneous Notes * Telephone Encounter - Digna Duffy RN - 08/26/2024 1:10 PM EDT Triage call Pt reports right shoulder pain without pain medications. Pt is taking meloxicam but, unable to take tylenol/ motrin, NSAIDS. 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 Pt authorization # for workmans comp is #[id number]. Pt has been seen by Dr. Yair grier 07/21/24 and will return 09/08/24 for next apt. Pt has had MRI done 08/24/24. Pt is requesting to be seen by provider for possible better pain relief. ASK apt in [facility] 08/28/24 900am. Pt agrees with disposition. Pt is using ice, immobilizer and rest as much as possible. Protocol Used: Shoulder Pain (Adult) Protocol-Based Disposition: See in Office or Video Visit within 3 Days Video visit not offered Positive Triage Question: * Moderate pain (e.g., interferes with normal activities) and present > 3 days * All higher-acuity triage questions were negative Care Advice Discussed: * Reassurance and Education - Shoulder Pain * Pain Medicines * Pain Medicines - Extra Notes and Warnings * Reasons To Call Back - Chest pain or difficulty breathing occurs - Moderate pain (such as interferes with normal activities) lasts over 3 days - Mild pain lasts over 7 days - You become worse * Use a Cold Pack for Pain * Use Heat After 48 Hours for Pain * Telephone Encounter - Soha Bermeo - 08/26/2024 11:52 AM EDT Symptom: Shoulder Pain - Not From Injury Outcome: Schedule an urgent appointment (within 1 hour) or talk to a nurse or provider soon Reason: Severe pain now documented in this encounter Plan of Treatment Upcoming Encounters Date Type Department Care Team (Late st Contact Info) Description 09/11/2024 9:30 AM EDT Medication Management [facility] MED & PEDS [address] [place] [address] Marbella Thapa, PharmD [address] [place] [address] 09/16/2024 3:45 PM EDT Office Visit [facility] MED & PEDS [address] [place] [address] Nick Levy MD [address] [place] [address] 10/19/2024 10:00 AM EDT Office Visit [facility] MED & PEDS [address] [place] [address] Nick Levy MD [address] [place] [address] documented as of this encounter Visit Diagnoses Not on filedocumented in this encounter Additional Health Concerns Assessment Noted Time PHQ-9 Depression Total Score: 5 07/16/19 25 3:41 PM EST documented as of this encounter Care Teams Utility Aircrewman Relationship Specialty Start Date End Date Nick Levy MD [address] [place] [address] PCP - General Internal Medicine 08/06/19 Marbella Thapa PharmD [address] [place] [address] Pharmacist Internal Medicine 07/06/24 documented as of this encounter
--- OUTSIDE RECORDS SUMMARY | 2024-09-08 11:51 | XMS_ITS | Encounter Summary ---
Author Organization [employer] Address 75 [facility] 7 [place] [address] Care Team Providers Care Medical Transcription Editor Name Role Phone Nick Levy MD Primary Care Provider [phone] Marbella Thapa PharmD Unavailable [phone] Reason for Visit * Reason Onset Date Comments Med Refill 09/02/2024 Encounter Details Date Type Department Care Team (Late st Contact Info) Description 09/02/2024 Refill [facility] MEDICINE [address] [place], [place] [phone] Keena Martinez MD [address] [place], [place] [phone] Type 2 diabetes mellitus without complication, unspecified whether longterm insulin use ([facility]) Social History Tobacco Use Types Packs/Day Years [...] the past 12 months, has t he [employer] gas, oil or water company threatened to [...] 09/11/2024 9:30 AM EDT Medication Management [facility] MED & PEDS [address] [place] [address] Marbella Thapa, PharmD 230 [place] [address] 09/16/2024 3:45 PM EDT Office Visit [facility] MED & PEDS [address] [place] [address] Nick Levy MD [address] [place] [address] 10/19/2024 10:00 AM EDT Office Visit [facility] MED & PEDS [address] [place] [address] Nick Levy MD [address] [place] [address] documented as of this encounter Visit Diagnoses Diagnosis Type 2 diabetes mellitus without complication, unspecified whether longterm insulin use ([facility]) documented in this encounter Additional Health Concerns Assessment Noted Time PHQ-9 Depression Total Score: 5 07/16/19 25 3:41 PM EST documented as of this encounter Care Teams Medical Transcription Editor Relationship Specialty Start Date End Date Nick Levy MD [address] [place] [address] PCP - General Internal Medicine 08/06/19 Marbella Thapa PharmD [address] [place] [address] Pharmacist Internal Medicine 07/06/24 documented as of this encounter
--- OUTSIDE RECORDS SUMMARY | 2024-09-08 11:51 | XMS_ITS | Encounter Summary ---
Author Organization [employer] Address [address] [facility] 7 [place] [address] Care Team Providers Care Senior Python Developer Name Role Phone Nick Levy MD Primary Care Provider [phone]- [phone] Marbella Thapa PharmD Unavailable [phone] Encounter Details Date Type Department Care Team (Late st Contact Info) Description 08/19/2024 Telephone [facility] MEDICINE [address] [place] [address] Nick Levy MD [address] [place] [address] Social History Tobacco Use Types Packs/Day Years [...] Description 09/11/2024 9:30 AM EDT Medication Management [facility] MED & PEDS [address] [place] [address] Marbella Thapa, PharmD 230 [place] [address] 09/16/2024 3:45 PM EDT Office Visit [facility] MED & PEDS [address] [place] [address] Nick Levy MD [address] [place] [address] 10/19/2024 10:00 AM EDT Office Visit [facility] MED & PEDS [address] [place] [address] Nick Levy MD [address] [place] [address] documented as of this encounter Visit Diagnoses Not on filedocumented in this encounter Additional Health Concerns Assessment Noted Time PHQ-9 Depression Total Score: 5 07/16/19 25 3:41 PM EST documented as of this encounter Care Teams Senior Python Developer Relationship Specialty Start Date End Date Nick Levy MD [address] [place] [address] PCP - General Internal Medicine 08/06/19 Marbella Thapa PharmD [address] [place] [address] Pharmacist Internal Medicine 07/06/24 documented as of this encounter
--- OUTSIDE RECORDS SUMMARY | 2024-09-08 11:51 | XMS_ITS | Encounter Summary ---
Author Organization [employer] Address [address] [place] [address] 7 [place] [address] Care Team Providers Care Tool Polishing Machine Operator Name Role Phone Nick Levy MD Primary Care Provider Marbella Thapa PharmD Unavailable [phone] Encounter Details Date Type Department Care Team (Late Contact Info) Description 01/01/2023 Orders Only [facility] MED & PEDS 505 [place] [address] Nick Levy MD 505 [place], [place] [phone] Low magnesium level (Primary Dx) Social History [...] Department Care Team (Late Contact Info) Description 09/11/2024 9:30 AM EDT Medication Management [facility] MED & PEDS [address] [place] [address] Marbella Thapa PharmD [address] [place] [address] 09/16/2024 3:45 PM EDT Office Visit [facility] MED & PEDS [address] [place] [address] Nick Levy MD [address] [place] [address] 10/19/2024 10:00 AM EDT Office Visit [facility] MED & PEDS [address] [place] [address] Nick Levy MD 505 [place] [address] documented as of this encounter Visit Diagnoses Diagnosis Low magnesium level- Primary documented in this encounter Additional Health Concerns Assessment Noted Time PHQ-9 Depression Total Score: 3 12/28/19 23 12:20 PM EDT documented as of this encounter Care Teams Tool Polishing Machine Operator Relationship Specialty Start Date End Date Nick Levy MD [address] [place] [address] PCP - General Internal Medicine 08/06/19 Marbella Thapa PharmD [address] [place] [address] Pharmacist Internal Medicine 07/06/24 documented as of this encounter
--- OUTSIDE RECORDS SUMMARY | 2024-09-08 11:51 | XMS_ITS | Encounter Summary ---
Author Organization [employer] Address 75 [facility] 7t [place] [address] Care Team Providers Care Operations Analyst Name Role Phone Nick Levy MD Primary Care Provider [phone]- [phone] Marbella Thapa PharmD Unavailable [phone] Reason for Visit * Reason Comments Med Refill Encounter Details Date Type Department Care Team (Late st Contact Info) Description 11/04/[address] [facility] MEDICINE [address] [place], [place] [phone] Keena Martinez MD [address] [place], [place] [phone] Acute right-sided low back pain, unspecified whether [...] Description 09/11/2024 9:30 AM EDT Medication Management [facility] MED & PEDS [address] [place] [address] Marbella Thapa PharmD 230 [place] [address] 09/16/2024 3:45 PM EDT Office Visit [facility] MED & PEDS 505 [place] [address] Nick Levy MD 505 [place] [address] 10/19/2024 10:00 AM EDT Office Visit [facility] MED & PEDS [address] [place] [address] Nick Levy MD [address] [place] [address] documented as of this encounter Visit Diagnoses Diagnosis Acute right-sided low back pain, unspecified whether sciatica present documented in this encounter Care Teams Operations Analyst Relationship Specialty Start Date End Date Nick Levy MD [address] [place] [address] PCP - General Internal Medicine 08/06/19 Marbella Thapa, Mey [address] [place] [address] Pharmacist Internal Medicine 07/06/24 documented as of this encounter
--- OUTSIDE RECORDS SUMMARY | 2024-09-08 11:51 | XMS_ITS | Encounter Summary ---
Author Organization [employer] Address 75 [facility] 7 [place] [address] Care Team Providers Care Marketing Analytics Specialist Name Role Phone Nick Levy MD Primary Care Provider [phone]- [phone] Marbella Thapa PharmD Unavailable Encounter Details Date Type Department Care Team (Late st Contact Info) Description 07/24/2024 Telephone [facility] MEDICINE [address] [place] [address] Nick Levy MD [address] [place] [address] Social History Tobacco Use Types Packs/Day Years [...] instead of Workers comp. Contact Kiana at [phone] documented in this encounter Plan of Treatment Upcoming Encounters Date Type Department Care Team ([facility] st Contact Info) Description 09/11/2024 9:30 AM EDT Medication Management [facility] MED & PEDS [address] [place] [address] Marbella Thapa, PharmD [address] [place] [address] 09/16/2024 3:45 PM EDT Office Visit [facility] MED & PEDS [address] [place] [address] Nick Levy MD [address] [place] [address] 10/19/2024 10:00 AM EDT Office Visit [facility] MED & PEDS [address] [place] [address] Nick Levy MD [address] [place] [address] documented as of this encounter Visit Diagnoses Not on filedocumented in this encounter Additional Health Concerns Assessment Noted Time PHQ-9 Depression Total Score: 5 07/16/19 25 3:41 PM EST documented as of this encounter Care Teams Marketing Analytics Specialist Relationship Specialty Start Date End Date Nick Levy MD [address] [place] [address] PCP - General Internal Medicine 08/06/19 Marbella Thapa PharmD [address] [place] [address] Pharmacist Internal Medicine 07/06/24 documented as of this encounter
--- OUTSIDE RECORDS SUMMARY | 2024-09-08 11:51 | XMS_ITS | Encounter Summary ---
Author Organization [employer] Address 75 [facility] 7 [place] [address] Care Team Providers Care Dyeing Machine Feeder Name Role Phone Nick Levy MD Primary Care Provider [phone]- [phone] Marbella Thapa PharmD Unavailable [phone] Reason for Visit * Reason Onset Date Comments Lab Orders 08/21/2024 Encounter Details Date Type Department Care Team (Late st Contact Info) Description 08/21/2024 Telephone [facility] MEDICINE [address] [place] [address] Nick Levy MD [address] [place] [address] Lab Orders Social History Tobacco Use Types Packs/Day Years [...] encounter Miscellaneous Notes * Telephone Encounter - Lisset Caldwell NP - 08/24/2024 8:50 AM EDT Thank you * Telephone Encounter - Lisset Caldwell NP - 08/21/2024 1:37 PM EDT Pls see telephone msg- [facility] did not receive authorization from [facility] comp- how do I facilitate that? Please note pt also saw ortho who independently ordered MR of shoulder on 07/21/24 * Telephone Encounter - Luc Domínguez - 08/21/2024 12:19 PM EDT Tc from Anna with [facility] requesting a for Order for Mri on 07/13/24 to Include the Workers comp Information. Contact Anna at [phone] documented in this encounter Plan of Treatment Upcoming Encounters Date Type Department Care Team (Late st Contact Info) Description 09/11/2024 9:30 AM EDT Medication Management [facility] MED & PEDS [address] [place] [address] Marbella Thapa PharmD [address] [place] [address] 09/16/2024 3:45 PM EDT Office Visit [facility] MED & PEDS [address] [place] [address] Nick Levy MD [address] [place] [address] 10/19/2024 10:00 AM EDT Office Visit [facility] MED & PEDS [address] [place] [address] Nick Levy MD [address] [place] [address] documented as of this encounter Visit Diagnoses Not on filedocumented in this encounter Additional Health Concerns Assessment Noted Time PHQ-9 Depression Total Score: 5 07/16/19 25 3:41 PM EST documented as of this encounter Care Teams Dyeing Machine Feeder Relationship Specialty Start Date End Date Nick Levy MD [address] [place] [address] PCP - General Internal Medicine 08/06/19 Marbella Thapa, Mey [address] [place] [address] Pharmacist Internal Medicine 07/06/24 documented as of this encounter
--- OUTSIDE RECORDS SUMMARY | 2024-09-08 11:51 | XMS_ITS | Encounter Summary ---
Author Organization [employer] Address 75 [facility] 7 [place] [address] Care Team Providers Care Waste Water Worker Name Role Phone Nick Levy MD Primary Care Provider [phone]- [phone] Marbella Thapa PharmD Unavailable [phone] Encounter Details Date Type Department Care Team (Late st Contact Info) Description 05/06/2023 Orders Only [facility] MED & PEDS [address] [place], [place] [phone] Nick Levy MD [address] [place], [place] [phone] Type 2 diabetes mellitus with hyperglycemia, without long-term current use of insulin ([facility]) (Primary Dx) Social History Tobacco [...] 9:30 AM EDT Medication Management [facility] MED & PEDS [address] [place] [address] Marbella Thapa, PharmD [address] [place] [address] 09/16/2024 3:45 PM EDT Office Visit [facility] MED & PEDS [address] [place] [address] Nick Levy MD [address] [place] [address] 10/19/2024 10:00 AM EDT Office Visit [facility] MED & PEDS [address] [place] [address] Nick Levy MD [address] [place] [address] documented as of this encounter Visit Diagnoses Diagnosis Type 2 diabetes mellitus with hyperglycemia, without long-term current use of insulin ([facility])- Primary documented in this encounter Additional Health Concerns Assessment Noted Time PHQ-9 Depression Total Score: 3 12/28/19 23 12:20 PM EDT documented as of this encounter Care Teams Waste Water Worker Relationship Specialty Start Date End Date Nick Levy MD [address] [place] [address] PCP - General Internal Medicine 08/06/19 Marbella Thapa PharmD [address] [place] [address] Pharmacist Internal Medicine 07/06/24 documented as of this encounter
== END 2024-09-08 10:42 | disposition home or self-care (01) ==
LOC: HO.HOS 10:09
PROVIDERS: PCP Internal Medicine; Visit Provider Orthopaedic Surgery
DX: M25.311 Other instability, right shoulder (principal); M75.41 Impingement syndrome of right shoulder; M19.011 Primary osteoarthritis, right shoulder
CPT/HCPCS: 99213; G2211

== ENCOUNTER → 2024-09-08 10:08 | Outpatient (BNVA) | payer OTHER, MEDICAID, SELFPAY | PROVIDERS: PCP Internal Medicine; Visit Provider Orthopaedic Surgery | DX: M25.311 Other instability, right shoulder (principal) | CPT/HCPCS: 99212 ==

== ENCOUNTER 2024-12-07 08:11 | Outpatient (AMB) | payer MEDICAID, SELFPAY ==
--- OUTSIDE RECORDS SUMMARY | 2024-12-07 08:16 | XMS_ITS | Encounter Summary ---
Author Organization [employer] Address [address] [place] [address] Care Team Providers Care Laboratory Machinist Name Role Phone Nick Levy MD Primary Care Provider +1- [phone] Marbella Thapa PharmD Unavailable [phone] Reason for Referral * Imaging (Routine) - Closed Specialty Diagnoses / Procedures Referred By Contac t Referred To Contact Radiology Diagnoses Transaminitis Procedures US Abdomen Complete Nick Levy MD [address] [place] [address] Phone: tel: fax: [address] Phone: tel: fax: Referral ID Status Reason Start Date Expiration Date Visits Re quested Visits Authorized [id number] Closed 05/27/2024 05/27/2025 1 1 Encounter Details Date Type Department Care Team (Late st Contact Info) Description 05/27/2024 Orders Only [facility] MED & PEDS [address] [place] [address] Nick Levy MD [address] [place] [address] Transaminitis (Primary Dx) Social History Tobacco Use [...] Upcoming Encounters Date Type Department Care Team ([facility] st Contact Info) Description 12/14/2024 10:00 AM EDT Medication Management [facility] MED & PEDS [address] [place] [address] Marbella Thapa, PharmD [address] [place] [address] 01/18/2025 11:30 AM EDT Office Visit [facility] MED & PEDS [address] [place] [address] Nick Levy MD [address] [place] [address] documented as of this encounter Procedures Procedure Name Priority Date/Time Associated Diagnosis Comments US ABDOMEN COMPLETE Routine 06/19/2024 7 :48 AM EST Transaminitis documented in this encounter Results * US Abdomen Complete (06/19/2024 7:48 AM EST) Anatomical Region Laterality Modality Abdomen Ultrasound 06/19/2024 7:48 AM EST Narrative 06/19/2024 7:50 AM EST [address] [address] Ultrasound Report Signed Patient: Yoan Burk MR#: [id number] : 1970 Acct:[id number] Age/Sex: 54 / M ADM Date: 06/17/24 Loc: HO.US Attending Dr: Nick Levy MD Ordering Physician: Nick Levy MD Date of Service: 06/17/24 Procedure(s): US abdomen complete Accession Number(s): [id number] cc: Nick Levy MD CLINICAL HISTORY: Transaminitis [...] in OV> 06/19/24 0749 DD/ TD/TT: 06/19/24747 Multilith Operator: Procedure Note Donotuseinterpreter, Image - 06/19/[address] [address] Ultrasound Report Signed Patient: Yoan Burk KMR#: [id number] : 1970Acct:[id number] Age/Sex: 54 / MADM Date: 06/17/24 Loc: HO.US Attending Dr: Nick Levy MD Ordering Physician: Nick Levy MD Date of Service: 06/17/24 Procedure(s): US abdomen complete Accession Number(s): [id number] cc: Nick Levy MD CLINICAL HISTORY: Transaminitis [...] in OV> 06/19/24 0749 DD/ TD/TT: 06/19/24747 Multilith Operator: us Nick Levy MD IMG US PROCEDURES Final Res ult documented in this encounter Visit Diagnoses Diagnosis Transaminitis- Primary Nonspecific elevation of levels of transaminase or lactic acid dehydrogenase (LDH) documented in this encounter Additional Health Concerns Assessment Noted Time PHQ-9 Depression Total Score: 11 023 11:31 AM EST documented as of this encounter Care Teams Laboratory Machinist Relationship Specialty Start Date End Date Nick Levy MD [address] [place] [address] PCP - General Internal Medicine 08/06/19 Marbella Thapa, Mey [address] [place] [address] Pharmacist Internal Medicine 07/06/24 documented as of this encounter
--- NOTE | 2024-12-07 08:25 | A.OFFVIS_ITS ---
Vital Signs 12/07/24 08:26 Height 5 ft 7 in Weight 167 lb 8.821 oz BMI 26.2 BP 130/80 Blood Pressure Location Lt brachial Position Sitting Pulse 76 Pulse Source Monitor Intake Visit Reasons: C WPF DEVELOPER/Dr. Levy/Chest pain/ preop [place] Allergies allopurinol (ALLOPURINOL) Allergy (Severe, Verified 10/02/24 12:17) ANAPHYLAXIS, throat swelling hydrocodone Allergy (Severe, Verified 10/01/24 09:33) Anaphylaxis sulfamethoxazole (From Bactrim) Allergy (Severe, Verified 10/02/24 12:17) skin peels trimethoprim (From Bactrim) Allergy (Severe, Verified 10/02/24 12:17) skin peels losartan Allergy (Intermediate, Verified 10/01/24 09:33) diarrhea lisinopril (LISINOPRIL) Adverse Reaction (Intermediate, Verified 10/01/24 09:33) Cough Medication List - Last Reconciled 12/07/24 by Kristopher Wilkinson MD albuterol sulfate 90 mcg/actuation 2 puffs inhalation Q4H PRN atenolol 25 mg PO QAM blood sugar diagnostic (True Metrix Glucose Test Strip) As directed celecoxib (Celebrex) 200 mg PO BID chlorthalidone 25 mg PO QAM glipizide 10 mg PO BID loperamide 2 mg PO TID PRN metformin 1,000 mg PO BID semaglutide (Ozempic) 1 mg subcut QWEEK simvastatin 40 mg PO BEDTIME tramadol 50 mg PO Q6H PRN HPI Comments Details: Yoan is here for preoperative stratification for shoulder surgery. Multiple cardiovascular risk factors including diabetes, hypertension, dyslipidemia. He is on appropriate medications for the same. He was also overweight and apparently he was in the 230s before but currently much lower. He has lost lot of weight by dietary changes. He fell a few months back in ice which led to shoulder issues and needs surgery. However, in 2022, he was apparently having chest pains but nothing recently. He describes them as random episodes that could happen any time. He blames it on a lot of stress around that time because of the of his mother and other issues. However, he is not having anything clearly exertional and nothing recently. Any case, because of chest pain as well as risk factors as above, he has been referred to us. [facility] Medical History (Updated 12/07/24 @ 09:25 by Kristopher Wilkinson MD) History of MRSA infection GERD (gastroesophageal reflux disease) Fatty liver Asthma Anxiety Alcohol dependence in remission HTN (hypertension) Diabetes Surgical History (Updated 10/02/24 @ 12:16 by Kim Lincoln RN) Hx of cystoscopy Hx of cholecystectomy Hx of appendectomy Family History (Updated 12/07/24 @ 09:22 by Kristopher Wilkinson MD) Father Dementia Social History Are you a primary healthcare consultant to a significant other at home: No Do you presently have visiting nurse or other home services: No Alcohol intake: former Patient Tobacco Use Status: Never used Tobacco 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, 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 Review of Systems Const Reports headache(s) and Denies weakness ENT Denies dizziness and Reports headache(s) Card Denies chest pain, Reports chest pain with activity, Denies syncope, Denies rapid heart rate, Denies pedal edema, Denies edema, Denies leg edema, Denies lightheadedness, Denies palpitations, Denies dyspnea, Denies dyspnea on exertion and Denies orthopnea Resp Denies cough, Denies dyspnea and Denies dyspnea on exertion GI Denies hematochezia and Denies change in stool character Musc Denies abnormal gait, Denies muscle cramps, Denies muscle weakness, Denies numbness, Denies radiating pain into limb and Denies tingling Neuro Denies abnormal gait, Denies dizziness, Denies syncope, Reports headache(s), Denies numbness, Denies tingling and Denies weakness Endo Denies palpitations Physical Exam Vital Signs: Last Vital Signs Pulse 76 12/07/24 08:26 BP 130/80 12/07/24 08:26 BMI result Body Mass Index 26.2 Const General: comfortable and no acute distress Orientation/consciousness: patient oriented x3 HEENT Other: Unremarkable Head: Yes normal to inspection Neck Neck: Yes normal visual inspection Chest Chest palpation & inspection: normal inspection of the chest Resp Auscultation: clear to auscultation bilaterally Cardio Palpation: normal PMI Heart sounds: S1 normal heart sound present, S2 normal heart sound present, no gallops, no murmurs and no rubs GI Palpation (GI): Soft to palpation Back/Spine/Pelvis Other: unremarkable Skin General skin exam: no rashes or lesions noted Neuro General: patient oriented x3 Extrem General: Yes normal to inspection Psych Mental Status: mental status grossly normal Office Procedures EKG Details: EKG with underlying sinus rhythm at 76/Min; no ischemic changes; [place] [id number], Complete Assessment & Plan Assessment & Plan (1) Precordial chest pain: Code(s): R07.2 - Precordial pain Category: Medical (2) Hyperlipidemia, unspecified: Code(s): E78.5 - Hyperlipidemia, unspecified Category: Medical (3) Diabetes: Code(s): E11.9 - Type 2 diabetes mellitus without complications Category: Medical (4) HTN (hypertension): Code(s): I10 - Essential (primary) hypertension Category: Medical Plan Atypical symptoms but multiple risk factors. We will schedule an echocardiogram and stress test for further evaluation. Discussed with patient and he is willing to undergo this. We can review the findings and decide further care. Discussion Notes I discussed with the patient the need for a stress test and echocardiogram to assess cardiac function before proceeding with shoulder surgery. We reviewed the importance of these tests given his cardiovascular risk factors and history of chest pain. The patient was informed about the continuation of his current medication regimen and the plan for follow-up with the rotogravure press operator. Patient was informed and verbally consented to the use of an ambient scribe for clinic note documentation during this visit. Orders: Orders CA echo transthoracic complete Today R07.2 - Precordial pain CA stress test Today R07.2 - Precordial pain Patient Instructions: - Continue taking your diabetes and blood pressure medications as prescribed. - Attend the scheduled stress test and echocardiogram appointments. - Follow up to discuss test results and surgical clearance. Coding Level of Care Code New Pt Level 4 (60442) Complex EM visit Add On G2211 Diagnoses Precordial chest pain R07.2 Hyperlipidemia, unspecified E78.5 Diabetes E11.9 HTN (hypertension) I10 CPT Codes EKG - CPT: 63500-Lppyfanlvwgiqdkaa, Complete ([id number])
[2024-12-07 08:26] VITALS: BP 130/80; PULSE 76; BMI 26.2
== END 2024-12-07 08:56 | disposition home or self-care (01) ==
LOC: HO.HCS 08:12
PROVIDERS: PCP Internal Medicine; Visit Provider Internal Medicine
DX: R07.2 Precordial pain (principal); E78.5 Hyperlipidemia, unspecified; E11.9 Type 2 diabetes mellitus without complications; I10 Essential (primary) hypertension
CPT/HCPCS: 93010; 99204

== ENCOUNTER → 2024-12-07 08:11 | Outpatient (BNVA) | payer MEDICAID, SELFPAY | PROVIDERS: PCP Internal Medicine; Visit Provider Internal Medicine | DX: R07.2 Precordial pain (principal); E78.5 Hyperlipidemia, unspecified; E11.9 Type 2 diabetes mellitus without complications; I10 Essential (primary) hypertension | CPT/HCPCS: 93005; 99202 ==

== ENCOUNTER 2025-01-18 11:41 | Outpatient (REF) | payer MEDICAID, SELFPAY ==
--- OUTSIDE RECORDS SUMMARY | 2025-01-18 12:13 | XMS_ITS | Clinical Summary ---
Author Organization [facility] ity Address [address] [place] [address] Care Team Providers Care Pallet Sorter Name Role Phone Unavailable Primary Care Provider [...] Vaccine (1 - 2023-2 5 season) 2024 Depression Screening 06/10/2024 Influenza Vaccine (#1) 2025 HIB Vaccines Aged Out No longer eligi [...] age to complete this topic Meningococcal B Vaccine Aged Out No l onger eligible based on patient's age to complete this topic RSV Immunization Patients Un semaj 20 months Aged Out No longer eligible b ased on patient's age to complete this topic Varicella Vaccines Aged Out No longer eligible based on patient's age to complete this topic
--- OUTSIDE RECORDS SUMMARY | 2025-01-18 12:13 | XMS_ITS | Encounter Summary ---
Author Organization [employer] Address [address] [place] [address] Care Team Providers Care Service Representative Name Role Phone Nick Levy MD Primary Care Provider [phone] Marbella Thapa PharmD Unavailable [phone] Reason for Referral * Imaging (Routine) - Closed Specialty Diagnoses / Procedures Referred By Contac t Referred To Contact Radiology Diagnoses Transaminitis Procedures US Abdomen Complete Nick Levy MD [address] [place] [address] Phone: tel: fax: [address] Phone: tel: fax: Referral ID Status Reason Start Date Expiration Date Visits Re quested Visits Authorized [id number] Closed 05/27/2024 05/27/2025 1 1 Encounter Details Date Type Department Care Team (Late st Contact Info) Description 05/27/2024 Orders Only [facility] [address] [place] [address] Nick Levy MD [address] [place] [address] Transaminitis (Primary Dx) Social History Tobacco Use [...] Upcoming Encounters Date Type Department Care Team ([facility] st Contact Info) Description 01/27/2025 9:45 AM EDT Office Visit [facility] PED[facility] [address] [place] [address] Wilda Mary MD [address] [place] [address] 03/23/2025 10:00 AM EDT Medication Management [facility] [address] [place] [address] Marbella Thapa, PharmD [address] [facility] [place] [address] documented as of this encounter Procedures Procedure Name Priority Date/Time Associated Diagnosis Comments US ABDOMEN COMPLETE Routine 06/19/2024 7 :48 AM EST Transaminitis documented in this encounter Results * US Abdomen Complete (06/19/2024 7:48 AM EST) Anatomical Region Laterality Modality Abdomen Ultrasound 06/19/2024 7:48 AM EST Narrative 06/19/2024 7:50 AM EST [facility] [address] [place] [address] Ultrasound Report Signed Patient: Yoan Burk MR#: [id number] : 1970 Acct:[id number] Age/Sex: 54 / M ADM Date: 06/17/24 Loc: HO.US Attending Dr: Nick Levy MD Ordering Physician: Nick Levy MD Date of Service: 06/17/24 Procedure(s): US abdomen complete Accession Number(s): [id number] cc: Nick Levy MD CLINICAL HISTORY: Transaminitis [...] in OV> 06/19/24 0749 DD/ TD/TT: 06/19/24747 Tin Plater: Procedure Note Donotlindsayinterpreter, Image - 06/19/[address] [address] Ultrasound Report Signed Patient: Yoan Burk KMR#: [id number] : 1970Acct:[id number] Age/Sex: 54 / MADM Date: 06/17/24 Loc: HO.US Attending Dr: Nick Levy MD Ordering Physician: Nick Levy MD Date of Service: 06/17/24 Procedure(s): US abdomen complete Accession Number(s): [id number] cc: Nick Levy MD CLINICAL HISTORY: Transaminitis [...] MD in OV> 06/19/24 0749 DD/ TD/TT: 06/19/2448 Tin Plater: us Nick Levy MD IMG US PROCEDURES Final Res ult documented in this encounter Visit Diagnoses Diagnosis Transaminitis- Primary Nonspecific elevation of levels of transaminase or lactic acid dehydrogenase (LDH) documented in this encounter Additional Health Concerns Assessment Noted Time PHQ-9 Depression Total Score: 11 023 11:31 AM EST documented as of this encounter Care Teams Service Representative Relationship Specialty Start Date End Date Nick Levy MD [address] [place] [id number] PCP - General Internal Medicine 08/06/19 Marbella Thapa, Mey [address] [place] [address] Pharmacist Internal Medicine 07/06/24 documented as of this encounter
[2025-01-18 15:36] LABS: Microalbum/Creatinine Ratio Ur 3.8 ug/mg cr (<30)
[2025-01-18 15:43] LABS: Vitamin B12 279 pg/mL (200-900)
== END 2025-01-18 11:42 | disposition home or self-care (01) ==
LOC: HO.CHCLDS 11:41
PROVIDERS: Visit Provider Internal Medicine
DX: E11.65 Type 2 diabetes mellitus with hyperglycemia (principal)
CPT/HCPCS: 36415; 82043; 82570; 82607

== ENCOUNTER → 2025-02-01 08:55 | Outpatient (REF) | payer MEDICAID, SELFPAY ==
--- OUTSIDE RECORDS SUMMARY | 2025-01-27 09:45 | XMS_ITS | Encounter Summary ---
Author Organization [employer] Address [address] [place] [address] Care Team Providers Care Deflash And Wash Operator Name Role Phone Nick Levy MD Primary Care Provider [phone] Marbella Thapa PharmD Unavailable [phone] Reason for Visit * Reason Comments Pre-op Exam Catarat surgery Encounter Details Date Type Department Care Team ([facility] st Contact Info) Description 01/27/2025 9:45 AM EDT Office Visit [facility] MED & PEDS [address] [place] [address] Wilda Mary MD [address] [place] [address] Primary hypertension (Primary Dx); Type 2 diabetes mellitus with hyperglycemia, without long-term current use of insulin ([facility]/HCC); Preop examination Social History Tobacco Use Types Packs/Day Years [...] Sign Reading Time Taken Comments Blood Pressure 134/86 01/27/2025 9:52 AM EDT Pulse 102 01/27/2025 9:52 AM EDT Temperature 36.9 C (98.4 F) 01/27/2025 9:52 AM EDT Respiratory Rate 16 01/27/2025 9:52 AM EDT Oxygen Saturation 98% 01/27/2025 9:52 AM EDT Inhaled Oxygen Concentration - - Weight 72.6 kg (160 lb) 01/27/2025 9:52 AM EDT Height 170.2 cm (5' 7 ) 01/27/2025 9:52 AM EDT Body Mass Index 25.06 01/27/2025 9:52 AM EDT documented in this encounter Progress Notes * Wilda Mary MD - 01/27/2025 9:45 AM EDT Subjective Patient ID: Yoan Burk is a 54 y.o. male who presents for Pre-op Exam (Catarat surgery ). Yoan is a 54-year-old type II diabetic patient at [facility]. He also has past history of stable hypertension and dyslipidemia. He is here for preop evaluation as he is scheduled for cataract surgery through [facility] in [place]. Patient feels overall well. His blood pressure and diabetes are better controlled than other. He has lost almost 70 pounds since on Ozempic for control of his diabetes. Review of Systems Constitutional: Negative for activity change, chills, fever and unexpected weight change. Eyes: Positive for visual disturbance. Respiratory: Negative for cough, chest tightness, shortness of breath and wheezing. Cardiovascular: Negative for chest pain, palpitations and leg swelling. Gastrointestinal: Negative for abdominal pain and blood in stool. Endocrine: Negative for polydipsia and polyuria. Genitourinary: Negative for decreased urine volume, difficulty urinating, dysuria and hematuria. Musculoskeletal: Negative for arthralgias and gait problem. Skin: Negative for color change and rash. Neurological: Negative for dizziness and headaches. Hematological: Negative for adenopathy. Psychiatric/Behavioral: Negative for dysphoric mood, hallucinations, sleep disturbance and suicidalideas. The patient is not nervous/anxious. Objective BP 134/86 (BP Location: Left arm, Patient Position: Sitting, BP Cuff Size: Adult) [id number] Temp 98.4 ??F (36.9 ??C) (Oral) Resp 16 Ht 5' 7 (1.702 m) Wt 160 lb (72.6 kg) SpO2 98% BMI 25.06 kg/m?? Physical Exam Vitals reviewed. Constitutional: General: He is not in acute distress. Appearance: Normal appearance. He is not ill-appearing. HENT: Head: Normocephalic. Nose: Nose normal. Mouth/Throat: Mouth: Mucous membranes are moist. Pharynx: No posterior oropharyngeal erythema. Eyes: General: No scleral icterus. Right eye: No discharge. Left eye: No discharge. Extraocular Movements: Extraocular movements intact. Conjunctiva/sclera: Conjunctivae normal. Pupils: Pupils are equal, round, and reactive to light. Cardiovascular: Rate and Rhythm: Normal rate. Heart sounds: Normal heart sounds. No murmur heard. No gallop. Pulmonary: Effort: Pulmonary effort is normal. No respiratory distress. Breath sounds: Normal breath sounds. Abdominal: General: There is no distension. Palpations: Abdomen is soft. Tenderness: There is no abdominal tenderness. Musculoskeletal: Cervical back: Normal range of motion. Right lower leg: No edema. Left lower leg: No edema. Lymphadenopathy: Cervical: No cervical adenopathy. Skin: Capillary Refill: Capillary refill takes less than 2 seconds. Findings: No rash. Neurological: General: No focal deficit present. Mental Status: He is alert and oriented to person, place, and time. Mental status is at baseline. Psychiatric: Mood and Affect: Mood normal. Behavior: Behavior normal. Thought Content: Thought content normal. Assessment/Plan Diagnoses and all orders for this visit: Primary hypertension Comments: Well-controlled BP on current anti-hypertensive medication. Continue low-sodium diet. Take meds morning of eye surgery to avoid hypertension. Type 2 diabetes mellitus with hyperglycemia, without long-term current use of insulin (CMS/[facility]) Comments: Yoan is doing much better with DM control. Random blood sugar 163 today. Last A1c 7.5. Continue Ozempic 2 mg weekly. Hold glipizide and metformin morning of eye cataract surgery. Okay to take them once able to eat again. Follow-up with PCP as scheduled and with pharmacist for follow-up DM in March. All questions answered. Orders: - POCT glucose manually resulted Preop examination Comments: Yoan has recent labs which were reviewed. He is undergoing a low risk surgery for cataract under local anesthesia. Has no contraindications for the surgery to be scheduled and done at [facility]. Note will be faxed to them. documented in this encounter Plan of Treatment Upcoming Encounters Date Type Department Care Team (Late st Contact Info) Description 03/23/2025 10:00 AM EDT Medication Management [facility]S [address] [place] [address] Marbella Thapa PharmD [address] [place], [place] [phone] documented as of this encounter Procedures Procedure Name Priority Date/Time Associated Diagnosis Comments POCT GLUCOSE Routine 01/27/2025 9:53 AM EDT Type 2 diabetes mellitus with hyperglycemia, without long-term current use of insulin (CMS/HCC) documented in this encounter Results * POCT glucose manually resulted (01/27/2025 9:53 AM EDT) Glucose Blood, POC 163 60 - 200 mg/dL QC Media Lot # Comment:[id number] Lot# Expiration Date Comment:05/29/2025 Blood Capillary blood specimen / Unknown 01/27/2025 9:53 AM EDT us Wilda Mary MD POINT OF CARE TEST ENTER/EDIT ORDERABLES Final Result documented in this encounter Visit Diagnoses Diagnosis Primary hypertension- Primary Unspecified essential hypertension Type 2 diabetes mellitus with hyperglycemia, without long-term current use of insulin ([facility]) Preop examination Unspecified pre-operative examination documented in this encounter Additional Health Concerns Assessment Noted Time PHQ-9 Depression Total Score: 5 07/16/19 25 3:41 PM EST documented as of this encounter Care Teams Deflash And Wash Operator Relationship Specialty Start Date End Date Nick Levy MD [address] [place] [address] PCP - General Internal Medicine 08/06/19 Marbella Thapa PharmD [address] [place] [address] Pharmacist Internal Medicine 07/06/24 documented as of this encounter
--- NOTE | 2025-02-01 08:59 | CA_ITS ---
Acquisition Time: 2025-02-01 10:00:14 Total Exercise Time: 00:07:00 Test Indications: PRECORDIAL CHEST PAIN Medications: ATENOLOL METFORMIN SIMVASTATIN SEMAGLUTIDE Protocol: JOHN Max HR: 150 BPM 90% of Pred: 165 BPM Max BP: 140/80 mmHG Max Work Load: 8.5 METS Exercise stress test with exercise 7 mins of John Protocol, achieving 88% MPHR, without any reports of chest pain or SOB, without any arrythmias, with normotensive response to exercise. Without any EKG changes meeting criteria for ischemia. In recovery, pt continued to feel well. Test reviewed with Dr. Wilkinson. Referred By: Kristopher Wilkinson Electronically Signed By: Eusebio Butcher
--- NOTE | 2025-02-01 08:59 | CA_ITS ---
Transthoracic Echocardiogram Patient (Last, First, Middle): Yoan Burk K Gender: Male Date of : 1970 Age: 54 Procedure Date: 02/01/2025 Procedure Type: Transthoracic Echocardiogram Location: OP Height: 170.18 cm Weight: 75.75 kg BSA: 1.87 m2 Heart Rate: bpm BP: 130 / 80 mmHg Brick Or Block Maker: MAGUE Referring MD: Kristopher Wilkinson MD Symptoms: R07.2 - Precordial pain Study Quality: Fair ECG Rhythm: Sinus Conclusions: - The left ventricular systolic function is normal. The visually estimated ejection fraction is between 55-60%. - No obvious valvular pathology seen on this study. Findings Procedure Information The study quality is limited by patients body habitus. Left Ventricle Normal left ventricular cavity size. The left ventricular systolic function is normal. The visually estimated ejection fraction is between 55-60%. There is no evidence of regional wall motion abnormalities. Diastolic function is normal for age. Mild focal hypertrophy of the basal septum. Right Ventricle Normal right ventricular cavity size and systolic function. Atria Both atria are normal in size. Aortic Valve There is a normal trileaflet aortic valve. There is no aortic valve stenosis. There is no aortic valve regurgitation. Mitral Valve The mitral valve appears normal. There is no mitral valve regurgitation. There is no mitral valve stenosis. Pulmonic Valve The pulmonic valve is likely normal. Tricuspid Valve There is trace tricuspid valve regurgitation. There is no evidence of pulmonary hypertension. Great Vessels The aorta was not well visualized. The sinuses of valsalva and sino tubular ridge are normal in size. Venous The inferior vena cava is normal in size and collapses greater than 50% with inspiration. Pericardium/Pleural There is no evidence of pericardial effusion. Prior Study Comparison No prior study available for comparison. Recommendations, Care & Conclusions No obvious valvular pathology seen on this study. Measurements 2D Linear Measurements IVSd: 0.98 0.6-0.9/0.6-1.0 cm LVIDd: 3.85 3.9-5.3/4.2-5.9 cm LVIDd Index: 2.06 2.4-3.2/2.2-3.1 cm/m2 LVIDs: 2.65 2.0-3.6 cm LVPWd: 0.86 0.7-1.1 cm LA Diam: 2.70 2.7-3.8/3.0-4.0 cm LAIDs Index: 1.44 1.5-2.3 cm/m2 LV Mass: 131.94 67-162/88-224 g LV Mass Index: 70.55 43-95/49-115 g/m2 LVOT Diam: 2.30 3.0+(-)1.3 cm 2D Systolic Function EF 4C: 60.10 >55% EF 2C: 65.50 >55% EF BiP: 62.00 >55% Mitral Valve MV Pk E: 0.50 MV PK A: 0.71 MV Decel Time: 198.00 E/A: 0.70 E'Lateral: 10.90 E'Medial: 6.31 E/E' Med: 7.90 E/E' Lat: 4.60 PHT: 58.00 MVA PHT: 3.79 Decel [place]: 2.51 Aortic Valve AoV Pk Alex: 0.92 AoV Mn Alex: 0.67 AoV VTI: 0.17 AoV Pk Grad: 3.00 Aov Mn Grad: 2.00 NIEVES Cont.VTI: 3.59 LVOT LVOT Pk Alex: 0.77 LVOT Mn Alex: 0.51 LVOT VTI: 0.15 LVOT Pk Grad: 2.00 LVOT Mn Grad: 1.00 LVOT Diam: 2.30 LVOT Area: 4.15 Diastolic Function MV Pk E: 0.50 MV Pk A: 0.71 E/A: 0.70 E'Medial: 6.31 E/E' Med: 7.90 E' Laterial: 10.90 E/E' Lat: 4.60 Right Ventricle TAPSE (mm): 24.00 TVS' Alex: 13.10 Tricuspid Valve TR Pk Alex: 1.54 TR Pk Grad: 9.00 RA Press: 3.00 RVSP: 12.00 Great Vessels Aorta Sinus of Valsalva: 3.95 2.0-3.[address] [place]: 3.03 1.7-3.4 cm Updated in Other Vendor System with Status of Final Kristopher Wilkinson MD electronically signed on 02/01/2025 12:06:08 PM with status of Final
--- OUTSIDE RECORDS SUMMARY | 2025-02-01 09:34 | XMS_ITS | Clinical Summary ---
Author Organization [facility] ity Address [address] [place] [address] Care Team Providers Care Cement And Concrete Plant Worker Name Role Phone Unavailable Primary Care Provider [...]
== END ==
LOC: HO.CARD 08:55
PROVIDERS: PCP Internal Medicine; Visit Provider Internal Medicine
DX: R07.2 Precordial pain (principal); Z79.899 Other long term (current) drug therapy
CPT/HCPCS: 93017; 93306

== ENCOUNTER → 2025-02-01 08:59 | Outpatient (BNV) | payer MEDICAID, SELFPAY | PROVIDERS: PCP Internal Medicine | DX: I42.2 Other hypertrophic cardiomyopathy (principal); R07.2 Precordial pain | CPT/HCPCS: 93016; 93018; 93306 ==

== ENCOUNTER 2025-02-16 14:32 | Outpatient (AMB) | payer MEDICAID, SELFPAY ==
[2025-02-16 14:50] VITALS: BP 108/60; PULSE 98; BMI 25.8
--- NOTE | 2025-02-16 14:50 | A.OFFVIS_ITS ---
Vital Signs 02/16/25 14:50 Height 5 ft 7 in Weight 164 lb 7.437 oz BMI 25.8 BP 108/60 Blood Pressure Location Lt brachial Position Sitting Pulse 98 Pulse Source Pulse Oximeter Intake Visit Reasons: f/up echo/ stress HS Force Dispatcher Required: No Accompanied by: Self / Same As Patient Allergies allopurinol (ALLOPURINOL) Allergy (Severe, Verified 02/16/25 14:52) ANAPHYLAXIS, throat swelling hydrocodone Allergy (Severe, Verified 02/16/25 14:52) Anaphylaxis sulfamethoxazole (From Bactrim) Allergy (Severe, Verified 02/16/25 14:52) skin peels trimethoprim (From Bactrim) Allergy (Severe, Verified 02/16/25 14:52) skin peels losartan Allergy (Intermediate, Verified 02/16/25 14:52) diarrhea lisinopril (LISINOPRIL) Adverse Reaction (Intermediate, Verified 02/16/25 14:52) Cough Medication List - Last Reconciled 02/16/25 by Eusebio Butcher NP albuterol sulfate 90 mcg/actuation 2 puffs inhalation Q4H PRN atenolol 25 mg PO QAM blood sugar diagnostic (True Metrix Glucose Test Strip) As directed celecoxib (Celebrex) 200 mg PO BID chlorthalidone 25 mg PO QAM glipizide 10 mg PO BID loperamide 2 mg PO TID PRN metformin 1,000 mg PO BID semaglutide (Ozempic) 1 mg subcut QWEEK simvastatin 40 mg PO BEDTIME tramadol 50 mg PO Q6H PRN HPI Comments Details: This is a 54-year-old male patient coming in for a follow-up visit. Patient with a history of hypertension, dyslipidemia, and diabetes. Patient was previously seen in the office for preop stratification for his upcoming shoulder surgery. Patient underwent an echo and a stress test for which he is here to review the results for. Previously patient had also reported some chest discomfort which patient reports has resolved and is denying any cardiac symptoms of exertional chest pain, shortness of breath, palpitations, dizziness, orthopnea, PND, leg edema, presyncope or syncope. Patient is reporting compliance with all his medications. 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 Review of Systems Const Denies daytime sleepiness, Denies difficulty sleeping, Denies snoring, Denies stops breathing during sleep and Denies weakness Card Denies chest pain, Denies rapid heart rate, Denies irregular heart rhythm, Denies claudication, Denies leg edema, Denies lightheadedness, Denies palpi tations, Denies dyspnea, Denies dyspnea on exertion, Denies orthopnea, Denies paroxysmal nocturnal dyspnea and Denies slow heart rate Resp Denies cough, Denies dyspnea, Denies dyspnea on exertion and Denies snoring GI Reports no additional complaints, Denies hematochezia, Denies change in stool character and Denies dyspepsia Musc Denies abnormal gait, Denies muscle weakness and Denies numbness Neuro Denies abnormal gait, Denies numbness and Denies weakness Endo Denies palpitations Physical Exam Vital Signs: Last Vital Signs Pulse 98 02/16/25 14:50 BP 108/60 02/16/25 14:50 BMI result Body Mass Index 25.8 Const General: cooperative, healthy appearing, comfortable and no acute distress Orientation/consciousness: patient oriented x3 HEENT Head: Yes normal to inspection Neck Neck: Yes normal visual inspection, Yes trachea midline and Yes supple Chest Chest palpation & inspection: normal inspection of the chest Resp Effort & Inspection: normal respiratory effort Auscultation: clear to auscultation bilaterally, no crackles, no rales, no rhonchi and no wheezes Cardio Jugular venous distension: no JVD Palpation: normal PMI Rate: regular rate Rhythm: regular rhythm Heart sounds: S1 normal heart sound present, S2 normal heart sound present, no click, no gallops, no murmurs and no rubs Peripheral pulses: Peripheral pulses 2+ throughout GI Inspection: Yes normal to inspection Palpation (GI): Soft to palpation Auscultation: normal bowel sounds Skin General skin exam: no rashes or lesions noted Neuro General: patient oriented x3 Extrem General: Yes normal to inspection, No no pedal edema and No calf tenderness Psych Appearance: grossly normal Mental Status: mental status grossly normal Speech and movement: Normal speech and movement present Assessment & Plan Assessment & Plan (1) Preop cardiovascular exam: Code(s): Z01.810 - Encounter for preprocedural cardiovascular examination Plan: 12/07/2024- EKG showed normal sinus rhythm, 76 beats per minute, with normal NV and corrected QT. 02/01/2025-patient underwent a treadmill stress test with moderate workload without any anginal symptoms or ischemic changes on the EKG. 02/01/2025-echo study showed a normal LV systolic function with an ejection fraction between 55-60% with no wall motion abnormalities or valvular pathology. Given above findings and resolution of his symptoms, no further testing indicated at this time. Patient can proceed with the upcoming shoulder surgery with the consideration that patient is at a low to intermediate cardiac risk. (2) HTN (hypertension): Code(s): I10 - Essential (primary) hypertension Category: Medical Plan: Blood pressure today is well-controlled. Continue current regimen. Advised monitoring blood pressures with a goal less than 130/80. (3) Hyperlipidemia, unspecified: Code(s): E78.5 - Hyperlipidemia, unspecified Category: Medical Plan: Continue statin therapy with a LDL goal less than 70. Most recent LDL within goal. (4) Diabetes: Code(s): E11.9 - Type 2 diabetes mellitus without complications Category: Medical Plan: Continue diabetes management with an A1c goal less than 7%. Advised heart healthy diet, regular exercise, med compliance, and aggressive management of vascular risk factors. Follow up on an as-needed basis. In the interim, patient will call the office with any concerns or change in symptoms. Advised to seek ER care in case of exertional chest pain not resolved with rest. This note was generated using voice recognition software. While every effort has been made to ensure accuracy and proper auto top mechanic, there may be occasional errors that could affect the content or meaning of the described symptoms. Coding Level of Care Code Est Pt Level 3 (34774) Complex EM visit Add On G2211 Diagnoses Preop cardiovascular exam Z01.810 HTN (hypertension) I10 Hyperlipidemia, unspecified E78.5 Diabetes E11.9 Time Spent (min) 29 Comment Time spent in reviewing the chart, test results, assessment, counseling and documentation.
--- OUTSIDE RECORDS SUMMARY | 2025-02-16 17:06 | XMS_ITS | Encounter Summary ---
Author Organization [employer] Address [address] [facility] [address], [place] [address] Care Team Providers Care Heat Engineering Teacher Name Role Phone Nick Levy MD Primary Care Provider [phone] Marbella Thapa PharmD Unavailable [phone] Reason for Visit * Reason Onset Date Comments FYI 08/19/2024 Encounter Details Date Type Department Care Team (Late st Contact Info) Description 08/19/[address] [facility] [address] [place] [address] Nick Levy MD [address] [place] [address] FYI Social History Tobacco Use Types Packs/Day Years [...] - 08/19/2024 11:02 AM EDT Tc from Amrita with [facility] stating can't schedule for MRI because they needs workers comp authorization . documented in this encounter Plan of Treatment Upcoming Encounters Date Type Department Care Team ([facility] st Contact Info) Description 03/23/2025 10:00 AM EDT Medication Management [facility] MED & PEDS [address] [place] [address] Marbella Thapa, PharmD [address] [place], [place] [id number] documented as of this encounter Visit Diagnoses Not on filedocumented in this encounter Additional Health Concerns Assessment Noted Time PHQ-9 Depression Total Score: 5 07/16/19 25 3:41 PM EST documented as of this encounter Care Teams Heat Engineering Teacher Relationship Specialty Start Date End Date Nick Levy MD [address] [place] [address] PCP - General Internal Medicine 08/06/19 Marbella Thapa, Mey [address] [place] [address] [place] [address] Pharmacist Internal Medicine 07/06/24 documented as of this encounter
--- OUTSIDE RECORDS SUMMARY | 2025-02-16 17:06 | XMS_ITS | Encounter Summary ---
Author Organization [employer] Address [address] [facility] [address] [address] Care Team Providers Care Car Wash Attendant Automatic Name Role Phone Nick Levy MD Primary Care Provider [phone]- [phone] Marbella Thapa PharmD Unavailable [phone] Reason for Visit * Reason Onset Date Comments Lab Orders 08/21/2024 Encounter Details Date Type Department Care Team (Late st Contact Info) Description 08/21/2024 Telephone [facility] MEDICINE [address] [place] [address] Nick Levy MD [address] [place] [address] Lab Orders Social History Tobacco Use Types [...] msg- [facility] did not receive authorization from workgermf[employer] comp- how do I facilitate that? Please note pt also saw ortho who independently ordered MR of shoulder on 07/21/24 * Telephone Encounter - Luc Domínguez - 08/21/2024 12:19 PM EDT Tc from Anna with [facility] requesting a for Order for Mri on 07/13/24 to Include the Workers comp Information. Contact Anna at [phone] documented in this encounter Plan of Treatment Upcoming Encounters Date Type Department Care Team (Late st Contact Info) Description 03/23/2025 10:00 AM EDT Medication Management [facility] MED & PEDS [address] [place] [address] Marbella Thapa PharmD [address] [place] [address] documented as of this encounter Visit Diagnoses Not on filedocumented in this encounter Additional Health Concerns Assessment Noted Time PHQ-9 Depression Total Score: 5 07/16/19 25 3:41 PM EST documented as of this encounter Care Teams Car Wash Attendant Automatic Relationship Specialty Start Date End Date Nick Levy MD [address] [place] [address] PCP - General Internal Medicine 08/06/19 Marbella Thapa PharmD [address] [place] [address] Pharmacist Internal Medicine 07/06/24 documented as of this encounter
--- OUTSIDE RECORDS SUMMARY | 2025-02-16 17:06 | XMS_ITS | Encounter Summary ---
Author Organization [employer] Address [address] [facility] 7 [place] [address] Care Team Providers Care Research Program Intern Name Role Phone Nick Levy MD Primary Care Provider [phone] [phone] Marbella Thapa PharmD Unavailable [phone] Encounter Details Date Type Department Care Team (Late st Contact Info) Description 02/11/2025 Telephone [facility] [address] [place], [place] [phone] Shantelle Rod, OD [address] [place] [address] Social History Tobacco Use Types Packs/Day Years [...] encounter Miscellaneous Notes * Telephone Encounter - Meredith Singer - 02/11/2025 10:54 AM EDT Pt came to order DVO glasses he stated he sees well ([place]). Pt aware he won't see perfectly due to him not having cataract surgery yet. Pt prefers having his shoulder surgery instead of cataract surgery at the moment. documented in this encounter Plan of Treatment Upcoming Encounters Date Type Department Care Team (Late st Contact Info) Description 03/23/2025 10:00 AM EDT Medication Management [facility] MED & PEDS [address] [place] [address] Marbella Thapa, PharmD [address] [place] [address] documented as of this encounter Visit Diagnoses Not on filedocumented in this encounter Additional Health Concerns Assessment Noted Time PHQ-9 Depression Total Score: 5 07/16/19 25 3:41 PM EST documented as of this encounter Care Teams Research Program Intern Relationship Specialty Start Date End Date Nick Levy MD [address] [place] [address] PCP - General Internal Medicine 08/06/19 Marbella Thapa PharmD [address] [place] [address] [place] [address] Pharmacist Internal Medicine 07/06/24 documented as of this encounter
--- OUTSIDE RECORDS SUMMARY | 2025-02-16 17:06 | XMS_ITS | Encounter Summary ---
Author Organization [employer] Address [address] [facility] 7 [place] [address] Care Team Providers Care Spray Unit Feeder Name Role Phone Nick Levy MD Primary Care Provider [phone] Marbella Thapa PharmD Unavailable [phone] Reason for Visit * Reason Comments Med Refill Encounter Details Date Type Department Care Team (Late Contact Info) Description 11/04/2022 Refill [facility] MEDICINE [address] [place] [address] Keena Martinez MD [address] [place] [address] Acute right-sided low back pain, unspecified whether [...] Department Care Team (Late Contact Info) Description 03/23/2025 10:00 AM EDT Medication Management [facility] MED & PEDS [address] [place] [address] Marbella Thapa PharmD [address] [place] [address] documented as of this encounter Visit Diagnoses Diagnosis Acute right-sided low back pain, unspecified whether sciatica present documented in this encounter Care Teams Spray Unit Feeder Relationship Specialty Start Date End Date Nick Levy MD [address] [place] [address] PCP - General Internal Medicine 08/06/19 Marbella Thapa PharmD [address] [place] [address] Pharmacist Internal Medicine 07/06/24 documented as of this encounter
--- OUTSIDE RECORDS SUMMARY | 2025-02-16 17:06 | XMS_ITS | Encounter Summary ---
Author Organization [employer] Address [address] [place] [address] Care Team Providers Care Writer Technical Publications Name Role Phone Nick Levy MD Primary Care Provider [phone] Marbella Thapa PharmD Unavailable [phone] Reason for Referral * Imaging (Routine) - Closed Specialty Diagnoses / Procedures Referred By Contac t Referred To Contact Radiology Diagnoses Transaminitis Procedures US Abdomen Complete Nick Levy MD [address] [place] [address] Phone: tel: fax: [address] Phone: tel: fax: Referral ID Status Reason Start Date Expiration Date Visits Re quested Visits Authorized [id number] Closed 05/27/2024 05/27/2025 1 1 Encounter Details Date Type Department Care Team (Late st Contact Info) Description 05/27/2024 Orders Only [facility] MED & PEDS [address] [place] [address] Nick Levy MD [address] [place] [address] Transaminitis (Primary Dx) Social History Tobacco Use [...] Description 03/23/2025 10:00 AM EDT Medication Management [facility] MED & PEDS [address] [place] [address] Marbella Thapa, PharmD [address] [place] [address] documented as of this encounter Procedures Procedure Name Priority Date/Time Associated Diagnosis Comments US ABDOMEN COMPLETE Routine 06/19/2024 7 :48 AM EST Transaminitis documented in this encounter Results * US Abdomen Complete (06/19/2024 7:48 AM EST) Anatomical Region Laterality Modality Abdomen Ultrasound 06/19/2024 7:48 AM EST Narrative 06/19/2024 7:50 AM EST [address] [address] Ultrasound Report Signed Patient: Yoan Burk MR#: [id number] : 1970 Acct:[id number] Age/Sex: 54 / M ADM Date: 06/17/24 Loc: HO.US Attending Dr: Nick Levy MD Ordering Physician: Nick Levy MD Date of Service: 06/17/24 Procedure(s): US abdomen complete Accession Number(s): [id number] cc: Nick Levy MD CLINICAL HISTORY: Transaminitis [...] in OV> 06/19/24 0749 DD/ TD/TT: 06/19/24747 Diesel Retrofit Designer: Procedure Note Donotuseinterpreter, Image - 06/19/[address] [address] Ultrasound Report Signed Patient: Yoan Burk KMR#: [id number] : 1970Acct:[id number] Age/Sex: 54 / MADM Date: 06/17/24 Loc: HO.US Attending Dr: Nick Levy MD Ordering Physician: Nick Levy MD Date of Service: 06/17/24 Procedure(s): US abdomen complete Accession Number(s): [id number] cc: Nick Levy MD CLINICAL HISTORY: Transaminitis [...] in OV> 06/19/24 0749 DD/ TD/TT: 06/19/2448 Diesel Retrofit Designer: us Nick Levy MD IMG US PROCEDURES Final Res ult documented in this encounter Visit Diagnoses Diagnosis Transaminitis- Primary Nonspecific elevation of levels of transaminase or lactic acid dehydrogenase (LDH) documented in this encounter Additional Health Concerns Assessment Noted Time PHQ-9 Depression Total Score: 11 023 11:31 AM EST documented as of this encounter Care Teams Writer Technical Publications Relationship Specialty Start Date End Date Nick Levy MD [address] [place] [address] PCP - General Internal Medicine 08/06/19 Marbella Thapa PharmD [address] [place] [address] Pharmacist Internal Medicine 07/06/24 documented as of this encounter
--- OUTSIDE RECORDS SUMMARY | 2025-02-16 17:06 | XMS_ITS | Encounter Summary ---
Author Organization [employer] Address [address] [facility] 7[place], [place] [address] Care Team Providers Care Harness Tier Name Role Phone Nick Levy MD Primary Care Provider [phone]- [phone] Marbella Thapa PharmD Unavailable [phone] Encounter Details Date Type Department Care Team (Late st Contact Info) Description 08/19/2024 Telephone [facility] MEDICINE [address] [place] [address] Nick Levy MD [address] [place] [address] Social History Tobacco Use Types Packs/Day Years [...] Description 03/23/2025 10:00 AM EDT Medication Management [facility] MED & PEDS [address] [place] [address] Marbella Thapa PharmD [address] [place] [address] documented as of this encounter Visit Diagnoses Not on filedocumented in this encounter Additional Health Concerns Assessment Noted Time PHQ-9 Depression Total Score: 5 07/16/19 25 3:41 PM EST documented as of this encounter Care Teams Harness Tier Relationship Specialty Start Date End Date Nick Levy MD [address] [place] [address] PCP - General Internal Medicine 08/06/19 Marbella Thapa PharmD [address] [place] [address] Pharmacist Internal Medicine 07/06/24 documented as of this encounter
--- OUTSIDE RECORDS SUMMARY | 2025-02-16 17:06 | XMS_ITS | Encounter Summary ---
Author Organization [employer] Address [address] [facility] [address] [address] Care Team Providers Care Meter Shop Superintendent Name Role Phone Nick Levy MD Primary Care Provider [phone] [phone] Marbella Thapa PharmD Unavailable [phone] Reason for Visit * Reason Onset Date Comments pre op 01/08/2025 Encounter Details Date Type Department Care Team ([facility] st Contact Info) Description 01/08/2025 Telephone [facility] MED & PEDS [address] [place] [address] Nick Levy MD [address] [place] [address] pre op Social History Tobacco Use Types Packs/Day Years [...] encounter Miscellaneous Notes * Telephone Encounter - Nena Calhoun - 01/12/2025 9:21 AM EDT Facility agreed to pre op appointment on 01/27/25 with . Appointment reminder letter mailed * Telephone Encounter - Daryn Elliott - 01/08/2025 3:52 PM EDT Date of Surgery: 02/10 Surgical procedure being done: cataract surgery right eye Type of anesthesia: local anesthesia Lab needed: No EKG: No Surgeon's name: Dr castillo Facility name: [facility] Surgeon's office number: [phone] Surgeon's office fax number: [phone] Contact name (person you spoke with): Marylu Last office note from surgeon requested: No Send Message to Nena Calhoun and Jose Luis Faye documented in this encounter Plan of Treatment Upcoming Encounters Date Type Department Care Team (Late st Contact Info) Description 03/23/2025 10:00 AM EDT Medication Management [facility] MED & PEDS [address] [place] [address] Marbella Thapa PharmD [address] [place] [address] documented as of this encounter Visit Diagnoses Not on filedocumented in this encounter Additional Health Concerns Assessment Noted Time PHQ-9 Depression Total Score: 5 07/16/19 25 3:41 PM EST documented as of this encounter Care Teams Meter Shop Superintendent Relationship Specialty Start Date End Date Nick Levy MD [address] [place] [address] PCP - General Internal Medicine 08/06/19 Marbella Thapa, Mey [address] [place] [address] Pharmacist Internal Medicine 07/06/24 documented as of this encounter
--- OUTSIDE RECORDS SUMMARY | 2025-02-16 17:06 | XMS_ITS | Encounter Summary ---
Author Organization [employer] Address [address] [place] [address] Care Team Providers Care Process Improvement Manager Name Role Phone Nick Levy MD Primary Care Provider +1- [phone] Marbella Thapa PharmD Unavailable [phone] Encounter Details Date Type Department Care Team ([facility] Contact Info) Description 01/01/2023 Orders Only [facility] MED & PEDS [address] [place] [address] Nick Levy MD [address] [place] [address] Low magnesium level (Primary Dx) Social History [...] Upcoming Encounters Date Type Department Care Team ([facility] Contact Info) Description 03/23/2025 10:00 AM EDT Medication Management [facility] MED & PEDS [address] [place] [address] Marbella Thapa PharmD [address] [place] [address] documented as of this encounter Visit Diagnoses Diagnosis Low magnesium level- Primary documented in this encounter Additional Health Concerns Assessment Noted Time PHQ-9 Depression Total Score: 3 12/28/19 23 12:20 PM EDT documented as of this encounter Care Teams Process Improvement Manager Relationship Specialty Start Date End Date Nick Levy MD [address] [place] [address] PCP - General Internal Medicine 08/06/19 Marbella Thapa, Mey [address] [place] [address] Pharmacist Internal Medicine 07/06/24 documented as of this encounter
--- OUTSIDE RECORDS SUMMARY | 2025-02-16 17:06 | XMS_ITS | Encounter Summary ---
Author Organization [employer] Address [address] [facility] 7 [place] [address] Care Team Providers Care Cleaning Handyman Name Role Phone Nick Levy MD Primary Care Provider [phone]- [phone] Marbella Thapa PharmD Unavailable Reason for Visit * Reason Comments Med Refill Encounter Details Date Type Department Care Team (Late st Contact Info) Description 09/26/2024 Refill [facility] MED & PEDS [address] [place] [address] Marbella Thapa, PharmD [address] [place] [address] Social History Tobacco Use Types Packs/Day Years [...] [facility] [address] [place] [address] Marbella Thapa PharmD [address] [place] [address] documented as of this encounter Visit Diagnoses Not on filedocumented in this encounter Additional Health Concerns Assessment Noted Time PHQ-9 Depression Total Score: 5 07/16/19 25 3:41 PM EST documented as of this encounter Care Teams Cleaning Handyman Relationship Specialty Start Date End Date Nick Levy MD [address] [place] [address] PCP - General Internal Medicine 08/06/19 Marbella Thapa PharmD [address] [place] [address] Pharmacist Internal Medicine 07/06/24 documented as of this encounter
--- OUTSIDE RECORDS SUMMARY | 2025-02-16 17:06 | XMS_ITS | Clinical Summary ---
Author Organization [facility] Address [address] [place] [address] Care Team Providers Care Home Health Care Worker Name Role Phone Unavailable Primary Care [...]
--- OUTSIDE RECORDS SUMMARY | 2025-02-16 17:06 | XMS_ITS | Encounter Summary ---
Author Organization [employer] Address 75 [facility] 7[place] [address] Care Team Providers Care Edger Machine Helper Name Role Phone Nick Levy MD Primary Care Provider [phone] Marbella Thapa PharmD Unavailable [phone] Encounter Details Date Type Department Care Team (Late st Contact Info) Description 07/24/2024 Telephone [facility] MEDICINE [address] [place] [address] Nick Levy MD [address] [place] [address] Social History Tobacco Use Types Packs/Day Years [...] instead of Workers comp. Contact Kiana at [phone] documented in this encounter Plan of Treatment Upcoming Encounters Date Type Department Care Team ([facility] st Contact Info) Description 03/23/2025 10:00 AM EDT Medication Management [facility] MED & PEDS [address] [place] [address] Marbella Thapa, PharmD [address] [place] [address] documented as of this encounter Visit Diagnoses Not on filedocumented in this encounter Additional Health Concerns Assessment Noted Time PHQ-9 Depression Total Score: 5 07/16/19 25 3:41 PM EST documented as of this encounter Care Teams Edger Machine Helper Relationship Specialty Start Date End Date Nick Levy MD [address] [place] [phone] PCP - General Internal Medicine 08/06/19 Marbella Thapa PharmD [address] [place] [phone] Pharmacist Internal Medicine 07/06/24 documented as of this encounter
--- OUTSIDE RECORDS SUMMARY | 2025-02-16 17:06 | XMS_ITS | Clinical Summary ---
Author Organization [employer] Address 75 [facility] 7 [place] [address] Care Team Providers Care Scientific Illustrator Name Role Phone Nick Levy MD Primary Care Provider [phone] Marbella Thapa PharmD Unavailable [phone] Allergies Active Allergy Reactions Criticality Noted Date [...] (six) hours if needed. 12/14/19 22 Active albuterol 108 (90 Base) MCG/ACT inhaler Inhale 2 puffs every 6 (six) hours if needed for wheezing. 18 g 11 07/22/19 24 Active Blood Glucose Monitoring Suppl (FreeStyle Albion Lite) w/Device kit Test blood sugar daily 1 kit 08/03/19 25 Active glucose blood test strip Test blood sugar daily 100 each 08/03/19 25 026 Active TRUEplus Lancets 33G misc Test blood sugar daily 100 each 08/03/19 25 Active glipiZIDE (Glucotrol) 10 MG tabletIndications:Typ e 2 diabetes mellitus without complication, unspecified whether meterman insulin use ([facility]) Take 1 tablet (10 mg) by mouth 2 times daily. 180 tablet 3 09/04/19 25 Active loperamide (Imodium) 2 MG capsule TAKE ONE CAPSULE THREE TIMES DAILY NEEDED 30 capsule 09/10/19 25 Active semaglutide (Ozempic, 1 MG/DOSE,) 4 MG/3ML solution pen-injector Inject 1 mg under the skin 1 (one) time per week. 3 mL 11 09/12/19 25 Active glucose 4 g chewable tabletIndications:Typ e 2 diabetes mellitus with hyperglycemia, without long-term current use of insulin ([facility]) Chew 4 tablets (16 g) if needed for low blood sugar. 50 tablet 12 11/07/19 25 026 Active simvastatin (Zocor) 40 MG tabletIndications:Typ e 2 diabetes mellitus without complication, unspecified whether group home insulin use ([facility]) TAKE ONE TABLET BY MOUTH EVERY DAY 90 tablet 1 11/28/19 25 Active chlorthalidone (Hygroton) 25 MG tabletIndications:Josee perez hypertension TAKE ONE TABLET EVERY MORNING 30 tablet 10 12/02/19 25 Active atenolol (Tenormin) 25 MG tabletIndications:Josee perez hypertension TAKE ONE TABLET EVERY MORNING 30 tablet 10 12/02/19 25 Active celecoxib (CeleBREX) 200 MG capsuleIndications:Ar thritis of right acromioclavicular joint,Traumatic complete tear of right rotator cuff, subsequent encounter TAKE 1 CAPSULE BY MOUTH 2 TIMES DAILY. 60 capsule 12/11/19 25 Active metFORMIN (Glucophage) 500 MG tabletIndications:Typ e 2 diabetes mellitus without complication, unspecified whether meterman insulin use ([facility]) TAKE 2 TABLETS BY MOUTH EVERY MORNING AND EVERY EVENING WITH MEALS 360 tablet 3 12/19/19 25 Active ketorolac (Acular) 0.5 % ophthalmic solution INSTILL ONE DROP IN THE LEFT EYE THREE TIMES DAILY 12/15/19 25 Active doxycycline (Vibra-Tabs) 100 MG tabletIndications:Tolu r follicle infection Take 1 tablet (100 mg) by mouth 2 times daily for 10 days. Take with a full glass of water and do not lie down for at least 30 minutes after. 20 tablet 01/19/20 25 025 Active Problems Problem Noted Date Diagnosed Date Hair follicle infection 11/10/2024 Assessment & Plan (11/10/2024 9:19 AM EDT): Pt here for new onset of painful area of redness and induration left anterior chest x 4 days. Tried to drain it unsuccessfully at home. Exam indicative of an infected hair follicle. Pt is allergic to Bactrim, in the past he says has received Keflex for other instances but found it not too effective, was told at some point he had MRSA. Plan: Keep area clean Doxy BID x 10 days Instructed to come back if symptoms do not improve or worsen. At the moment nothing to drain, unable to obtain culture. Mild depression 07/16/2024 Acute pain of right shoulder 07/13/2024 Assessment & Plan (07/13/2024 9:42 AM EST): Concerning for rotator cuff pathology, MRI ordered, Stat referral to ortho- Continue with sling, arom as tolerated. 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 PLAN: 1. Follow up with [facility]: Not recommended for follow-up 2. Patient goal [...] Declined CM referral. At this time Yoan Bruk meets criteria for Visit Diagnoses: Problem List Items Addressed This Visit Other Anxiety Severe episode of recurrent major depressive disorder, without psychotic features (CMS/HCC) Stress-related problem Patient ready to address current needs Yes Strengths include awareness of the problem and motivation to change. PLAN: 1. Follow up with [facility]: Not recommended for follow-up 2. Patient goal [...] Declined CM referral. At this time Yoan Hastingsw meets criteria for Visit Diagnoses: Problem List Items Addressed This Visit Other Anxiety Severe episode of recurrent major depressive disorder, without psychotic features (CMS/HCC) Stress-related problem Patient ready to address current needs Yes Strengths include awareness of the problem and motivation to change. PLAN: 1. Follow up with [facility]: Not recommended for follow-up 2. Patient goal is to be connected with therapy services and be able to manage stress 3. Behavioral Recommendations a. Referral for OP individual therapy b. Follow PCP recommendations regarding meds. c. Utilize coping mechanisms provided into daily routine Encounters Date Type Department Care Team Description 02/11/2025 Telephone [facility] OPTOMETRY [address] [place] [address] Shantelle Rod OD 01/27/2025 9:45 AM EDT Office Visit [facility] CHC MED & PEDS [address] [place], [place] [phone] Wilda Mary MD Primary hypertension (Primary Dx); Type 2 diabetes mellitus with hyperglycemia, without long-term current use of insulin ([facility]); Preop examination 01/27/2025 Travel 01/26/2025 Telephone [facility] MED & PEDS [address] [place] [address] Nick Levy MD Chart Prep 01/19/2025 Results Follow-Up [facility] MED & PEDS [address] [place] [address] Raya Guillaume, CATHY Albumin, Random Urine W/Creatinine, Vitamin B12 01/18/2025 11:30 AM EDT Office Visit [facility] MED & PEDS [address] [place] [address] Nick Levy MD Type 2 diabetes mellitus with hyperglycemia, without long-term current use of insulin ([facility]) (Primary Dx); Primary hypertension; Hair follicle infection 01/18/2025 Orders Only [facility] MED & PEDS [address] [place] [address] Nick Levy MD 01/18/2025 Travel 01/08/2025 Telephone [facility] MED & PEDS [address] [place] [address] Nick Levy MD pre op 12/18/2024 Travel 12/18/2024 Refill [facility] MED & PEDS [address] [place] [address] Nick Levy MD Type 2 diabetes mellitus without complication, unspecified whether meterman insulin use (CMS/HCC) 12/17/2024 Travel 12/10/2024 Refill [facility] MED & PEDS [address] [place] [address] Nick Levy MD Arthritis of right acromioclavicular joint; Traumatic complete tear of right rotator cuff, subsequent encounter 12/01/2024 Refill [facility] MEDICINE [address] [place] [address] Nick Levy MD Primary hypertension 11/26/2024 Refill [facility] [address] [place] [address] Nick Levy MD Type 2 diabetes mellitus without complication, unspecified whether group home insulin use (CMS/HCC) from Last 3 Months Immunizations Immunization Administration Dates Next Due Td (adult), 5 [...] Mass Index 25.06 01/27/2025 9:52 AM EDT Plan of Treatment Upcoming Encounters Date Type Department Care Team (Late st Contact Info) Description 03/23/2025 10:00 AM EDT Medication Management [facility] MED & PEDS [address] [place] [address] Marbella Thapa, PharmD [address] [place] [address] Health Maintenance Due Date Last Done Comments CT Colonography 1969 Colonoscopy 1969 Colorectal Cancer Screening 1969 Dental Oral Exam 1969 Dental Prophylaxis 1969 Dental X-Ray: Full Mouth 1969 FIT DNA/Cologuard 1969 FIT 1969 FOBT 1969 HIV Screening 1969 Sigmoidoscopy 1969 Zoster Vaccines (1 of 2) 2019 COVID-19 Vaccine ( season) 2025 Influenza Vaccine (#1) 2025 Diabetes: Hemoglobin A1C 03/20/20252 025, 09/11/2024, 05/27/2024, Additional history exists Dental X-Ray: Bitewings 04/22/2025 04/21/2024, 08/05 Diabetes: Foot Exam 05/27/2025 05/27/2024, 05/09/2023, 05/09/2023, Additional history exists Lipid Panel 05/27/2025 05/27/2024 Alcohol/Substance Use Screening 07/15/2025 07/15/2024 SDOH Screening 07/15/2025 07/15/2024 Depression Screening 07/16/2025 07/16/2024, 07/16/19 25 Pneumococcal Vaccine: 50+ Years (1 of 2 - PCV) 10/19/2025 Postponed from 1988 (Patient Refused) Eye Exam 11/05/2025 11/05/2024, 10/09, 11/05/2024, Additional history exists Disability Screening 12/17/2025 12/17/2024 Diabetes: Urine Protein Screening 01/18/2026 01/18/2025, 12/31/2022, 08/07/2019 Tobacco Screening 01/18/2026 01/18/2025 DTaP/Tdap/Td Vaccines (2 - Td or Tdap) [...] hyperglycemia, without long-term current use of insulin ([facility]) ALBUMIN, RANDOM URINE W/CREATININE Routine 01/18/2025 11:50 AM EDT VITAMIN B12 Routine 01/18/2025 11:42 AM EDT POCT GLUCOSE Routine 01/18/2025 11:24 AM EDT Type 2 diabetes mellitus with hyperglycemia, without long-term current use of insulin (CMS/HCC) POCT GLYCATED HEMOGLOBIN, TOTAL Routine 12/18/2024 10:03 AM EDT Type 2 diabetes mellitus with hyperglycemia, without long-term current use of insulin (CMS/HCC) HEPATITIS C AB W/REFL TO HCV RNA, QN, PCR Routine 05/27/2024 10:31 AM EST Type 2 diabetes mellitus with hyperglycemia, without long-term current use of insulin (CMS/HCC) Primary hypertension LIPID PANEL, STANDARD Routine 05/27/2024 10:31 AM EST Type 2 diabetes mellitus with hyperglycemia, without long-term current use of insulin (CMS/HCC) Primary hypertension BITEWING - SINGLE RADIOGRAPHIC IMAGE Routine 04/21/2024 9:00 AM EST from Last 3 Months or Most Recently Relevant to Health Maintenance Results * POCT glucose manually resulted (01/27/2025 9:53 AM EDT) Only the most recent of2 resultswithin the time period is included. Glucose Blood, POC 163 60 - 200 mg/dL QC Media Lot # Comment:[id number] Lot# Expiration Date Comment:05/29/2025 Blood Capillary blood specimen / Unknown 01/27/2025 9:53 AM EDT Wilda Mary MD POINT OF CARE TEST ENTER/EDIT ORDERABLES Final Result * Albumin, Random Urine W/Creatinine (01/18/2025 11:50 AM EDT) Creatinine, Urine 259.28 mg/dL [facility] Microalbumin Urine 10.0 mg/L [facility] Microalbum Creatinine Ratio Ur 3.8 <30 ug/mg cr [facility] Comment:Albumin/Creatinine R atio Reference Ranges: Normal: < 30 ug/mg creatinine Microalbuminuria: 30 - 300 ug/mg creatinineClinical Albuminuria: > 300 ug/mg creatinine 01/18/2025 11:5 0 AM EDT 01/18/2025 2:18 PM EDT us Nick Levy MD LAB URINE ORDERABLES Final Result Performing Organization Address [facility] Co de Phone Number [facility] [address] [place] [phone] * Vitamin B12 (01/18/2025 11:42 AM EDT) Pathologist [facility] Vitamin B12 279 200 - 900 pg/mL [facility] Comment:NORMAL 200-900 PG/ML INDETERMINATE 160-199 PG/ML DEFICIENT < 160 PG/ML 01/18/2025 11:4 2 AM EDT 01/18/2025 2:22 PM EDT Nick Levy MD LAB BLOOD ORDERABLES Final Result Performing Organization Address [facility] Co de Phone Number [facility] [address] [place] [phone] * (ABNORMAL) POCT A1C (12/18/2024 10:03 AM EDT) Pathologist [facility] Hemoglobin A1C 7.5(A) 4.0 - 5.7 % QC Media Lot # [id number] Lot# Expiration Date [id number] Blood 12/18/2024 10:0 3 AM EDT Nick Levy MD POINT OF CARE TEST ENTER/ED IT ORDERABLES Final Result * Hepatitis C Antibody with Reflex to HCV, RNA, Quantitative, Real-Time PCR (05/27/2024 10:31 AM EST) Hepatitis C Antibody Nonreactive Nonreactive [facility] Comment:Antibodies to HCV no t detected; does not exclude early acuteHCV infection. Blood Venous blood specimen / Unknown 05/27/2024 10:31 AM EST 05/27/2024 2:06 PM EST Nick Levy MD LAB BLOOD ORDERABLES Final Result Performing Organization Address [facility] Co de Phone Number [facility] [address] [place] [phone] * (ABNORMAL) Lipid Panel, Standard (05/27/2024 10:31 AM EST) Pathologist [facility] Triglycerides 133 <150 mg/dL [facility] Comment:Desirable Triglyceri de: less than 150 mg/dLBorderline High Triglyceride 150-199 mg/dLHigh Triglyceride: 200-499 mg/dLVery High Triglyceride: greater than or equal to 5OO mg/dL Cholesterol 110 <200 mg/dL [facility] Comment:Desirable Cholestero l: less than 200 mg/dLBorderline High Cholesterol: 200-239 mg/dLHigh Cholesterol: greater than 239 mg/dL LDL Cholesterol Calculated 52 <100 mg/dL [facility] Comment:Desirable LDL: less than 100 mg/dLNear Optimal/Above Optimal LDL: 110- 129 mg/dLBorderline High LDL: 130-159 mg/dLHigh LDL: 160-189 mg/dLVery High LDL: greater than or equal to 190 mg/dL HDL Cholesterol 32(L) >40 mg/dL [facility] Comment:Desirable HDL: great er than 40 mg/dL Note: This HDL assay may give artificially low results in patients with liver disease. Blood Venous blood specimen / Unknown 05/27/2024 10:31 AM EST 05/27/2024 2:06 PM EST us Nick Levy MD LAB BLOOD ORDERABLES Final Result Performing Organization Address [facility]/ZIP Co de Phone Number [facility] [address] [place] [phone] from Last 3 Months or Most Recently Relevant to Health Maintenance Insurance [facility] C3 DENTAL - HSN FULL (MEDICAID) [employer] Care Teams Scientific Illustrator Relationship Specialty Start Date End Date Nick Levy MD [address] [place] [phone] PCP - General Internal Medicine 08/06/19 Marbella Thapa PharmD [address] [place] [phone] Pharmacist Internal Medicine 07/06/24
--- OUTSIDE RECORDS SUMMARY | 2025-02-16 17:06 | XMS_ITS | Encounter Summary ---
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 Pt authorization # for workmans comp is #[id number]. Pt has been seen by Dr. Yair grier 07/21/24 and will return 09/08/24 for next apt. Pt has had MRI done 08/24/24. Pt is requesting to be seen by provider for possible better pain relief. ASK apt in [facility] 08/28/24 900am. Pt agrees with disposition. [...] Description 03/23/2025 10:00 AM EDT Medication Management [facility] MED & PEDS [address] [place] [address] Marbella Thapa, PharmD [address] [place] [address] documented as of this encounter Visit Diagnoses Not on filedocumented in this encounter Additional Health Concerns Assessment Noted Time PHQ-9 Depression Total Score: 5 07/16/19 25 3:41 PM EST documented as of this encounter Care Teams Supervisor Tumblers Relationship Specialty Start Date End Date Nick Levy MD [address] [place] [address] PCP - General Internal Medicine 08/06/19 Marbella Thapa PharmD [address] [place] [address] Pharmacist Internal Medicine 07/06/24 documented as of this encounter
--- OUTSIDE RECORDS SUMMARY | 2025-02-16 17:06 | XMS_ITS | Encounter Summary ---
Author Organization [employer] Address 75 [facility] [address] [address] Care Team Providers Care Aviation Technician Aircraft Name Role Phone Nick Levy MD Primary Care Provider [phone] Marbella Thapa PharmD Unavailable [phone] Reason for Visit * Reason Onset Date Comments Med Refill 04/22/2024 Encounter Details Date Type Department Care Team ([facility] st Contact Info) Description 04/22/2024 Refill [facility] MED & PEDS [address] [place] [address] Nick Levy MD [address] [place] [address] Social History Tobacco Use Types Packs/Day Years [...] Upcoming Encounters Date Type Department Care Team ([facility] st Contact Info) Description 03/23/2025 10:00 AM EDT Medication Management [facility] MED & PEDS [address] [place] [address] Marbella Thapa PharmD [address] [place] [address] documented as of this encounter Visit Diagnoses Not on filedocumented in this encounter Additional Health Concerns Assessment Noted Time PHQ-9 Depression Total Score: 11 023 11:31 AM EST documented as of this encounter Care Teams Aviation Technician Aircraft Relationship Specialty Start Date End Date Nick Levy MD [address] [place] [address] PCP - General Internal Medicine 08/06/19 Marbella Thapa PharmD [address] [place] [address] Pharmacist Internal Medicine 07/06/24 documented as of this encounter
--- OUTSIDE RECORDS SUMMARY | 2025-02-16 17:06 | XMS_ITS | Encounter Summary ---
Author Organization [employer] Address 75 [facility] 7[place] [address] Care Team Providers Care Paper Stripper Name Role Phone Nick Levy MD Primary Care Provider [phone] Marbella Thapa PharmD Unavailable [phone] Encounter Details Date Type Department Care Team ([facility] st Contact Info) Description 05/06/2023 Orders Only [facility] CHC MED & PEDS [address] [place] [address] Nick Levy MD [address] [place] [address] Type 2 diabetes mellitus with hyperglycemia, without long-term current use of insulin (CMS/[facility]) (Primary Dx) Social History Tobacco Use Types [...] AM EDT documented as of this encounter Functional Status * Over the past 2 weeks, how often have you been bothered by any of the following problems? Question Answer Date of Assessment Author Patient Health Questionnaire -2 Score 3 05/09/2023 1:43 PM Crystal Santos MD * If you checked off any problems on this questionnaire so far, Question Answer Date of Assessment Author How difficult have these problems made it for you to do your work, take care of things at home, or get along with other people? Somewhat difficult 05/09/2023 1:43 PM Crystal Santos MD * Over the past 2 weeks, how often have you been bothered by any of the following problems? Question Answer Date of Assessment Author Little interest or pleasure in doing things Several days 05/09/2023 1:43 PM Nick Santos MD Feeling down, depressed, or hopeless More than half the days 05/09/2023 1:43 PM Nick Santos MD Trouble falling or staying asleep, or sleeping too much Nearly every day 05/09/2023 1:43 PM Nick Santos MD Feeling tired or having little energy Nearly every day 05/09/2023 1:43 PM Nick Santos MD Poor appetite or overeating Not at all 05/09/2023 1:43 PM Nick Santos MD Feeling bad about yourself - or that you are a failure or have let yourself or your family down Several days 05/09/2023 1:43 PM Nick Santos MD Trouble concentrating on things, such as reading the newspaper or watching television Not at all 05/09/2023 1:43 PM Nick Santos MD Moving or speaking so slowly that other people could have noticed? Or the opposite - being so fidgety or restless that you have been moving around a lot more than usual. Not at all 05/09/2023 1:43 PM Nick Santos MD Thoughts that you would be better off or hurting yourself in some way Not at all 05/09/2023 1:43 PM Nick Santos MD Patient Health Questionnaire-9 Score 10 05/09/2023 1:43 PM Nick Santos MD documented as of this encounter Plan of Treatment Upcoming Encounters Date Type Department Care Team (Late st Contact Info) Description 03/23/2025 10:00 AM EDT Medication Management [facility] MED & PEDS [address] [place], [place] [phone] Marbella Thapa PharmD [address] [place], [place] [phone] documented as of this encounter Visit Diagnoses Diagnosis Type 2 diabetes mellitus with hyperglycemia, without long-term current use of insulin ([facility])- Primary documented in this encounter Additional Health Concerns Assessment Noted Time PHQ-9 Depression Total Score: 3 12/28/19 23 12:20 PM EDT documented as of this encounter Care Teams Paper Stripper Relationship Specialty Start Date End Date Nick Levy MD [address] [place], [place] [phone] PCP - General Internal Medicine 08/06/19 Marbella Thapa PharmD [address] [place] [address] Pharmacist Internal Medicine 07/06/24 documented as of this encounter
== END 2025-02-16 15:08 | disposition home or self-care (01) ==
LOC: HO.HCS 14:33
PROVIDERS: PCP Internal Medicine
DX: Z01.810 Encounter for preprocedural cardiovascular examination (principal); I10 Essential (primary) hypertension; E78.5 Hyperlipidemia, unspecified; E11.9 Type 2 diabetes mellitus without complications
CPT/HCPCS: 99213

== ENCOUNTER → 2025-02-16 14:32 | Outpatient (BNVA) | payer MEDICAID, SELFPAY | PROVIDERS: PCP Internal Medicine | DX: I10 Essential (primary) hypertension (principal); E78.5 Hyperlipidemia, unspecified; Z01.810 Encounter for preprocedural cardiovascular examination; E11.9 Type 2 diabetes mellitus without complications | CPT/HCPCS: 99212 ==

== ENCOUNTER 2025-04-26 16:07 | Outpatient (REF) | payer MEDICAID, SELFPAY | END 2025-04-26 16:08 | disposition home or self-care (01) | LOC: HO.HHCLNP 16:07 | PROVIDERS: Visit Provider Internal Medicine | DX: L02.91 Cutaneous abscess, unspecified (principal) | CPT/HCPCS: 87070; 87077; 87186; 87205 ==